=== PATIENT | male | born 1945 | race Caucasian/White ===

== ENCOUNTER 2017-12-28 09:09 | Day surgery (SDC) | payer OTHER ==
[2017-12-23 13:18] VITALS: BMI 21.9
[2017-12-28] MEDS: CIPROFLOXACIN 0.3% EYE DROPS 5 ML BOTTLE ONE ×3 (10:00→10:10)
[2017-12-28] MEDS: CYCLOPENTOLATE 2% OPHTH SOLN 2 ML BOTTLE ONE ×3 (10:00→10:10)
[2017-12-28] MEDS: PHENYLEPHRINE 2.5% OPHTH SOLN 15 ML BOTTLE ONE ×3 (10:00→10:10)
[2017-12-28] MEDS: TROPICAMIDE 1% OPHTH SOLN 15 ML BOTTLE ONE ×3 (10:00→10:10)
[2017-12-28] MEDS ORDERED: MIDAZOLAM HCL 2 MG/2 ML SINGLE DOSE VIAL ONE (11:03)
[2017-12-28] MEDS ORDERED: TETRACAINE 0.5% OPHTH SOLN 2 ML BOTTLE ONE (11:09)
[2017-12-28] MEDS ORDERED: LIDOCAINE 1% P/F 10 MG/ML VIAL ONE (11:09)
[2017-12-28] MEDS ORDERED: CARBACHOL 0.01% INTRA-OCULAR 1.5 ML VIAL ONE (11:09)
[2017-12-28] MEDS ORDERED: BSS (NA/CA/MG/K) BALANCED SALT SOLUTION OPHTH SOLN 15 ML BOTTLE ONE (11:09)
[2017-12-28] MEDS ORDERED: LIDOCAINE HCL 1% PRESERVATIVE FREE - 30ML VIAL IO ONE ×2 (11:25→11:30)
[2017-12-28] MEDS ORDERED: DISP SYRIN IO ONE ×2 (11:26→11:30)
[2017-12-28] MEDS ORDERED: EPINEPHrine 1:1,000 1 MG/1 ML - 30ML VIAL (INJECTION) SQ ONE ×2 (11:26→11:30)
[2017-12-28] MEDS ORDERED: HYALURONATE SODIUM IO ONE ×2 (11:26→11:30)
[2017-12-28] MEDS ORDERED: CARBACHOL 0.01% INTRA-OCULAR 1.5 ML VIAL IO ONE ×2 (11:27→11:30)
[2017-12-28] MEDS ORDERED: NEO/POLYMYX B SULF/DEXAMETH OPHTHALMIC 5ML BOTTLE OD ONE ×2 (11:28→11:40)
[2017-12-28] MEDS ORDERED: BSS (NA/CA/MG/K) BALANCED SALT SOLUTION OPHTH SOLN 15 ML BOTTLE OD ONE (11:30)
[2017-12-28] MEDS ORDERED: CHONDROITIN SU A/HYALUR SOD 1 KIT IO ONE (11:34)
[2017-12-28 12:43] VITALS: TEMP 97.6
[2017-12-28] MEDS ORDERED: ONDANSETRON 4 MG/2 ML VIAL IVPUSH PRN (12:43)
[2017-12-28] MEDS ORDERED: ACETAMINOPHEN 325 MG TABLET (FP) PO PRN (12:43)
[2017-12-28] MEDS ORDERED: LACTATED RINGERS SOLUTION 1,000 ML IV SCH (12:45)
[2017-12-28 13:10] VITALS: BP 136/74; PULSE 82
== END 2017-12-28 12:15 | disposition home or self-care (01) ==
LOC: FASU 09:09
PROVIDERS: ATTEND Ophthalmology
PROC: 08RJ3JZ Replacement of Right Lens with Synthetic Substitute, Percutaneous Approach (ICD-10-PCS; principal; 2017-12-28 11:30)
DX: H26.8 Other specified cataract (principal)

== ENCOUNTER 2018-01-04 13:37 | Emergency (ER) | payer OTHER ==
[2018-01-04 13:50] VITALS: TEMP 98.2; BMI 21.6
--- NOTE | 2018-01-04 14:19 | PDOC ---
History of Present Illness - General History Source: Patient, Family Exam Limitations: No Limitations - History of Present Illness Initial Comments: 01/04/18 14:28 The patient is a 72 year old male, with a significant past medical history of COPD, hypertension, hyperlipidemia, GERD, who presents to the emergency department with approx. 2 weeks of diffuse upper back pain described as a sharp pain. The patient reports the diffuse upper back pain occasionally radiates down towards his sides. The patient reports taking Aleve for the pain with mild relief but states the diffuse upper back pain returns. The patient reports he has not seen his PCP Dr. Jean Baptiste for evaluation of the upper back pain due to unavailable appointments this week. The patient also reports an itch on the upper back. He reports using moisturizer and a prescribed cream from Dr. Jean Baptiste on the itch with minimal relief. He denies any recent chest pain or shortness of breath. He denies any recent fever, chills, headache or dizziness. He denies any recent nausea, vomiting, diarrhea or constipation. He denies any recent dysuria, frequency, urgency or hematuria. Allergies: NKA Social History: Former smoker. No current use of tobacco, alcohol or drugs. PCP: Dr. Jean Baptiste <Matheus Santoyo - Last Filed: 01/04/18 14:28> - History of Present Illness Initial Comments: 01/04/18 14:19 Physical exam: Alert oriented well-developed well-nourished no acute distress cooperative Afebrile, vital signs normal except for moderately elevated blood pressure PERRLA, fundi benign, ENT clear Neck supple without bruit mass or nodes Lungs clear with full breath sounds throughout bilaterally, no wheezes rales or rhonchi. No tachypnea or dyspnea CV S1 and S2 distant without murmur rub or gallop pulses full and symmetric no JVD or edema no bruits regular Abdomen soft nontender without mass or organomegaly. Bowel sounds normal. Nondistended Extremities no CCE Skin clear, no rash, adequate turgor and wet mucous membranes Neurological C2 to 12 intact. No focal sensory or motor deficits. Strength full and symmetric. Gait stable and unimpaired Musculoskeletal: There is no point tenderness or deformity over the back musculature or vertebral bodies. There is no rib cage or chest wall deformity or tenderness. The patient indicates intermittent pain over the right posterior scapula, the left posterior shoulder. No anterior pain. No mid back or low back pain. Impression: The history of physical exam indicates musculoskeletal pain, most probably with multiple trigger points, myofascial. Because of the patient's risk factor, rule out occult pulmonary or cardiac disease. Plan: EKG and enzymes, CBC and chemistries, urinalysis, chest x-ray, further evaluation and treatment depending on results. <Tyrone Lucio - Last Filed: 01/04/18 16:21> - General Chief Complaint: Back Pain Stated Complaint: BACK PAIN Time Seen by Provider: 01/04/18 13:54 Past History <Matheus Santoyo - Last Filed: 01/04/18 14:28> - Past Medical History Anemia: No Asthma: Yes Cancer: No Cardiac Disorders: No CVA: No COPD: Yes CHF: No Dementia: No Diabetes: No GI Disorders: Yes (GERD) Disorders: No HTN: Yes Hypercholesterolemia: Yes Liver Disease: No Psychiatric Problems: Yes (ANXIETY) Seizures: No Thyroid Disease: No - Surgical History Abdominal Surgery: No Appendectomy: No Cardiac Surgery: No Cholecystectomy: Yes Lung Surgery: No Neurologic Surgery: No Orthopedic Surgery: Yes (DEMETRICE SHOULDER ARTHROSCOPIES) - Immunization History Td Vaccination: Yes Immunization Up to Date: Yes - Suicide/Smoking/Psychosocial Hx Smoking Status: No Smoking History: Former smoker Have you smoked in the past 12 months: No Number of Cigarettes Smoked Daily: 0 If you are a former smoker, when did you quit?: 1990s Cigars Per Day: 0 Information on smoking cessation initiated: No Hx Alcohol Use: No Drug/Substance Use Hx: No Substance Use Type: None Hx Substance Use Treatment: No <Tyrone Lucio - Last Filed: 01/04/18 16:21> - Past Medical History Allergies/Adverse Reactions: Allergies Allergy/AdvReac Type Severity Reaction Status Date / Time No Known Drug Allergies Allergy Verified 12/28/17 09:38 Home Medications: Ambulatory Orders Atenolol [Tenormin -] 25 mg PO DAILY 09/23/13 Budesonide/Formeterol Fumarate [SYMBICORT 160/4.5mcg -] 2 inh PO BID 09/23/13 Bupropion HCl [Wellbutrin -] 75 mg PO TID 09/23/13 Chlorthalidone [Hygroton -] 25 mg PO DAILY 09/23/13 Cholecalciferol (Vitamin D3) [Vitamin D] 1,000 unit PO BID 09/23/13 Lorazepam 0.5 mg PO 5XD 09/23/13 Niacin [Niaspan] 1,000 mg PO HS 09/23/13 Omeprazole [Prilosec (RX)] 40 mg PO DAILY 09/23/13 Potassium Chloride [Klor-Con 8] 8 meq PO TID 09/23/13 Simvastatin [Zocor -] 20 mg PO HS 09/23/13 Valsartan [Diovan] 160 mg PO DAILY 09/23/13 Aspirin [Ecotrin] 81 mg PO DAILY 07/16/16 Cyclobenzaprine HCl [Flexeril -] 10 mg PO TID #15 tablet 01/04/18 Review of Systems - Review of Systems Comments:: 01/04/18 14:30 GENERAL/CONSTITUTIONAL: No fever or chills. No weakness. HEAD, EYES, EARS, NOSE AND THROAT: No change in vision. No ear pain or discharge. No sore throat. CARDIOVASCULAR: No chest pain or shortness of breath. RESPIRATORY: No cough, wheezing, or hemoptysis. GASTROINTESTINAL: No nausea, vomiting, diarrhea or constipation. GENITOURINARY: No dysuria, frequency, or change in urination. MUSCULOSKELETAL: +Diffuse upper back pain. No neck pain. SKIN: No rash NEUROLOGIC: No headache, vertigo, loss of consciousness, or change in strength/ sensation. ENDOCRINE: No increased thirst. No abnormal weight change. HEMATOLOGIC/LYMPHATIC: No anemia, easy bleeding, or history of blood clots. ALLERGIC/IMMUNOLOGIC: No hives or skin allergy. <Matheus Santoyo - Last Filed: 01/04/18 14:28> *Physical Exam - Vital Signs Last Vital Signs Temp Pulse Resp BP Pulse Ox 98.2 F 74 16 179/87 97 01/04/18 13:39 01/04/18 13:39 01/04/18 13:39 01/04/18 13:39 01/04/18 13:39 <Matheus Santoyo - Last Filed: 01/04/18 14:28> - Vital Signs Last Vital Signs Temp Pulse Resp BP Pulse Ox 98.2 F 74 16 179/87 97 01/04/18 13:39 01/04/18 13:39 01/04/18 13:39 01/04/18 13:39 01/04/18 13:39 <Tyrone Lucio - Last Filed: 01/04/18 16:21> ED Treatment Course - LABORATORY CBC & Chemistry Diagram: 01/04/18 14:25 01/04/18 14:25 <Tyrone Lucio - Last Filed: 01/04/18 16:21> Medical Decision Making - Medical Decision Making 01/04/18 14:45 EKG: Sinus rhythm 69/m with occasional PACs. Left axis deviation. No significant ST-T wave changes. No ST elevation. No old EKG available in our files. 01/04/18 14:57 Chest x-ray: Chronic interstitial disease, no acute infiltrates, effusions. 01/04/18 15:07 Old EKG was reviewed with primary physician Dr. Jean Baptiste. Except for the PAC, appears to be unchanged. Stress test was also reviewed from 2008. <Tyrone Lucio - Last Filed: 01/04/18 16:21> *DC/Admit/Observation/Transfer - Attestations Scribe Attestion: 01/04/18 14:30 Documentation prepared by Matheus Santoyo, acting as medical technologist clinical for Tyrone Lucio MD. <Matheus Santoyo - Last Filed: 01/04/18 14:28> - Discharge Dispostion Admit: No <Tyrone Lucio - Last Filed: 01/04/18 16:21> Diagnosis at time of Disposition: Upper back pain - Discharge Dispostion Disposition: HOME Condition at time of disposition: Stable - Prescriptions Prescriptions: Cyclobenzaprine HCl [Flexeril -] 10 mg PO TID #15 tablet - Referrals Referrals: Matheus Jean Baptiste MD [Primary Care Provider] - 1 week - Patient Instructions Printed Discharge Instructions: DI for Thoracic Back Pain Additional Instructions: Blood pressure remains high. Be sure to take blood pressure medicine as scheduled and to see your doctor to carefully monitor response to medication. If it remains high, modification of the medicine may be necessary. Stress reduction activities, which may help to lower your blood pressure and also relieved or muscle pain, I recommended. Relaxation techniques, such as deep breathing, or light exercise, such as walking for a short period of time daily may help. - Post Discharge Activity
[2018-01-04 15:07] LABS: BASO % 0.7 % (0-2.0); EOS % 5.4 % (0-4.5); HEMATOCRIT 38.2 % (35.4-49); HEMOGLOBIN 12.5 GM/dl (11.7-16.9); LYMPH % 20.8 % (8-40); MCH 29.5 pg (25.7-33.7); MCHC 32.9 g/dl (32.0-35.9); MEAN CELL VOLUME 89.7 fl (80-96); MEAN PLT VOLUME 8.4 fl (7.5-11.1); MONO % 10.4 % (3.8-10.2); NEUT % 62.7 % (42.8-82.8); PLATELET COUNT 214 K/MM3 (134-434); RBC 4.26 M/mm3 (4.00-5.60); RDW 12.6 % (11.9-15.9); WHITE BLOOD COUNT 6.9 K/mm3 (4.0-10.8)
[2018-01-04 15:18] LABS: PH,URINE 8.5 (4.5-8); URINE APPEARANCE Clear; URINE BILIRUBIN Negative (NEGATIVE); URINE BLOOD Negative (NEGATIVE); URINE GLUCOSE (UA) Negative (NEGATIVE); URINE KETONE Negative (NEGATIVE); URINE LEUK ESTERASE Negative (NEGATIVE); URINE NITRITE Negative (NEGATIVE); URINE PROTEIN Negative (NEGATIVE); URINE UROBILINOGEN 0.2 (0.2-1.0)
[2018-01-04 15:19] LABS: URINE COLOR YELLOW
[2018-01-04 16:07] LABS: ALBUMIN 3.8 g/dl (3.5-5.0); ALK PHOS 51 U/L (32-92); ANION GAP 7 (8-16); BILIRUBIN,TOTAL 0.7 mg/dl (0.2-1.0); BLOOD UREA NITROGEN 20 mg/dl (7-18); CHLORIDE 97 mmol/L (98-107); CO2 26 mmol/L (22-28); GLUCOSE,RANDOM 94 mg/dl (74-106); POTASSIUM 4.4 mmol/L (3.5-5.1); SGOT/AST 38 U/L (10-42); SGPT/ALT 28 U/L (10-40); SODIUM 130 mmol/L (136-145); TOT PROT 6.8 g/dl (6.4-8.3)
[2018-01-04 16:12] VITALS: BP 183/89; PULSE 66
--- NOTE | 2018-01-05 10:53 | EKG ---
Test Reason : Blood Pressure : / mmHG Vent. Rate : 069 BPM Atrial Rate : 069 BPM P-R Int : 152 ms QRS Dur : 090 ms QT Int : 424 ms P-R-T Axes : 031 -35 008 degrees QTc Int : 454 ms SINUS RHYTHM WITH PREMATURE ATRIAL COMPLEXES LEFT AXIS DEVIATION NONSPECIFIC ST ABNORMALITY ABNORMAL ECG NO PREVIOUS ECGS AVAILABLE Confirmed by TOMASZ ROSA MD ([id number]) on 01/05/2018 10:53:16 AM Referred By: CHICO SALAMANCA Confirmed By:TOMASZ ROSA MD
== END 2018-01-04 16:24 | disposition home or self-care (01) ==
LOC: FER 13:37
DX: M54.9 Dorsalgia, unspecified (principal); J44.9 Chronic obstructive pulmonary disease, unspecified; I10 Essential (primary) hypertension; E78.5 Hyperlipidemia, unspecified; K21.9 Gastro-esophageal reflux disease without esophagitis; F41.9 Anxiety disorder, unspecified
CPT/HCPCS: 36415; 71046-TC-FY; 80053; 81003; 82550; 84484; 85025; 93005; 99283-25

== ENCOUNTER 2018-02-01 08:37 | Inpatient (IN) | payer OTHER ==
[2018-02-01] MEDS: CIPROFLOXACIN 0.3% EYE DROPS 5 ML BOTTLE ONE ×3 (09:20→09:30)
[2018-02-01] MEDS: CYCLOPENTOLATE 2% OPHTH SOLN 2 ML BOTTLE ONE ×3 (09:20→09:30)
[2018-02-01] MEDS: PHENYLEPHRINE 2.5% OPHTH SOLN 15 ML BOTTLE ONE ×3 (09:20→09:30)
[2018-02-01] MEDS: TROPICAMIDE 1% OPHTH SOLN 15 ML BOTTLE ONE ×3 (09:20→09:30)
[2018-02-01] MEDS ORDERED: FAMOTIDINE 20 MG PREMIXED IVPB IVPB ONE (09:35)
[2018-02-01] MEDS ORDERED: FAMOTIDINE 20 MG/50 ML IVPB 20 MG/50 ML MG IVPB ONE (10:00)
[2018-02-01] MEDS ORDERED: MIDAZOLAM HCL 2 MG/2 ML SINGLE DOSE VIAL ONE ×2 (10:32→10:45)
--- NOTE | 2018-02-01 11:52 | PN ---
Progress Note (short form) - Note Progress Note: ANESTHESIOLOGY 72M was undergoing cataract extraction and lens implants. C/o GERD this am and received famotidine preop. In OR pt with irregular rhythm with rate ~90's -100' s. Hemodynamically stable. Procedure completed without issue. Pt transferred to PACU, EKG shows A-fib which is new onset. Cardiology called, awaiting consult. Cardiac enzymes, BMP and CBC drawn in PACU pending. Pt stable, and asymptomatic. HR:108 RR: 17 BP: 138/787 SaO2: 100% 2L NC Temp: 98.2 F Gen:awake, alert, NAD Heart: Irregular, no murmurs appreciated Lungs: CTA B/L Pt with new onset atrial fibrillation. Pt transferred to PACU. Cardiology called , awaiting consult. Cardiac enzymes, BMP and CBC drawn in PACU pending. Pt stable, and asymptomatic. LAbs Pending Awaiting Cardiology Continue monitor in PACU
[2018-02-01] MEDS: METOPROLOL TARTRATE 5 MG/5 ML VIAL IVPUSH ONE ×2 (12:01→15:13)
--- NOTE | 2018-02-01 13:10 | OP ---
DATE OF PROCEDURE: 02/01/2018 OPERATIVE PROCEDURE: Lens Phacoemulsification with Posterior Chamber Intraocular Lens Placement Left Eye PREOPERATIVE DIAGNOSIS: Visually Significant Cataract of Left Eye POSTOPERATIVE DIAGNOSIS: Visually Significant Cataract of Left Eye SURGEON: Silas Dwyer M.D. ANESTHESIA: MAC ANESTHESIOLOGIST: PROCEDURE: The patient was brought to the operating room and placed under monitored anesthesia care by Anesthesia. A drop of Tetracaine was then placed over the left eye. The patient was then prepped and draped in the usual sterile manner. A speculum was then placed over the left eye. The eye was then well irrigated with copious amounts of BSS (balanced salt solution). The operating microscope was then moved into position. A paracentesis was performed using a 15 degree blade. At this point 0.5 mL of 1% preservative-free lidocaine was injected into the anterior chamber. Amvisc plus was then injected into the anterior chamber. A clear corneal incision was then formed using a 2.2 mm keratome. A capsulorrhexis was then performed in a continuous circular fashion beginning with a cystotome, completed with an Utrata forceps. Hydrodissection was then performed using BSS on a cannula. The phaco probe was then introduced through the corneal wound and the cataract was removed using the phaco chop technique. Approximately 3 seconds of absolute phaco time was used. The remaining cortex was then removed using irrigation and aspiration with an I/A probe. The capsule was then filled with regular Amvisc and the capsule was noted to be intact. A previously selected foldable posterior chamber intraocular lens was then injected into the capsule through the corneal wound using a lens injector. It was then dialed into position using a Sinskey hook. The Amvisc was then removed using irrigation and aspiration. Miostat was then injected through the paracentesis to constrict the pupil. The paracentesis and corneal wound were then hydrated and noted to be water tight. A drop of Maxitrol was then placed over the eye. The speculum was removed and clear shield was taped over the eye. The patient tolerated the procedure well and there were no surgical complications. The patient was asked to follow up in my office the next day. SILAS DWYER M.D. TULIO/[id number]
--- NOTE | 2018-02-01 13:19 | HP ---
CHIEF COMPLAINT: rapid heart rate PCP: Dr Jean Baptiste HISTORY OF PRESENT ILLNESS: Patient is a 72 y/o male with a past medical history of cataract anxiety,depression, hypertension, copd, and GERD. Patient underwent an elective left cataract removal today with Dr Ramírez. Patient was noted to be in a rapid afib after the procedure. He was given 5mg of IV lopressor x 1. Patient reports ongoing non-radiating left sided chest pain. Patient denies any past medical history of afib. Recent Travel: none PAST MEDICAL HISTORY: see hpi PAST SURGICAL HISTORY: left cataract removal Social History: resides at home with Smoking:none Alcohol:none Drugs: none Family History: non-contributory to this admission Allergies No Known Drug Allergies Allergy (Verified 02/01/18 09:39) HOME MEDICATIONS: Home Medications Medication Instructions Recorded Atenolol [Tenormin -] 25 mg PO DAILY 09/23/13 Budesonide/Formeterol Fumarate 2 inh PO BID 09/23/13 [SYMBICORT 160/4.5mcg -] Bupropion HCl [Wellbutrin -] 75 mg PO TID 09/23/13 Chlorthalidone [Hygroton -] 25 mg PO DAILY 09/23/13 Cholecalciferol (Vitamin D3) 1,000 unit PO BID 09/23/13 [Vitamin D] Lorazepam 0.5 mg PO 5XD 09/23/13 Niacin [Niaspan] 1,000 mg PO HS 09/23/13 Omeprazole [Prilosec (RX)] 40 mg PO DAILY 09/23/13 Potassium Chloride [Klor-Con 8] 8 meq PO TID 09/23/13 Simvastatin [Zocor -] 20 mg PO HS 09/23/13 Valsartan [Diovan] 160 mg PO DAILY 09/23/13 Aspirin [Ecotrin] 81 mg PO DAILY 07/16/16 REVIEW OF SYSTEMS CONSTITUTIONAL: Absent: fever, chills, diaphoresis, generalized weakness, malaise, loss of appetite, weight change HEENT: Absent: rhinorrhea, nasal congestion, throat pain, throat swelling, difficulty swallowing, mouth swelling, ear pain, eye pain, visual changes CARDIOVASCULAR: Present: chest pain Absent: syncope, palpitations, irregular heart rate, lightheadedness, peripheral edema RESPIRATORY: Absent: cough, shortness of breath, dyspnea with exertion, orthopnea, wheezing, stridor, hemoptysis GASTROINTESTINAL: Absent: abdominal pain, abdominal distension, nausea, vomiting, diarrhea, constipation, melena, hematochezia GENITOURINARY: Absent: dysuria, frequency, urgency, hesitancy, hematuria, flank pain, genital pain MUSCULOSKELETAL: Absent: myalgia, arthralgia, joint swelling, back pain, neck pain SKIN: Absent: rash, itching, pallor HEMATOLOGIC/IMMUNOLOGIC: Absent: easy bleeding, easy bruising, lymphadenopathy, frequent infections ENDOCRINE: Absent: unexplained weight gain, unexplained weight loss, heat intolerance, cold intolerance NEUROLOGIC: Absent: headache, focal weakness or paresthesias, dizziness, unsteady gait, seizure, mental status changes, bladder or bowel incontinence PSYCHIATRIC: Absent: anxiety, depression, suicidal or homicidal ideation, hallucinations. PHYSICAL EXAMINATION Vital Signs - 24 hr 02/01/18 02/01/18 02/01/18 09:21 09:38 10:58 Temperature 97.8 F 98.2 F Pulse Rate 66 97 H Respiratory 18 18 Rate Blood Pressure 117/89 139/77 O2 Sat by Pulse 95 95 96 Oximetry (%) 02/01/18 02/01/18 02/01/18 11:03 11:08 11:13 Temperature Pulse Rate 98 H 99 H 118 H Respiratory 17 18 17 Rate Blood Pressure 144/78 134/84 137/87 O2 Sat by Pulse 99 99 99 Oximetry (%) 02/01/18 02/01/18 02/01/18 11:30 11:45 12:00 Temperature Pulse Rate 113 H 108 H 102 H Respiratory 17 16 14 Rate Blood Pressure 137/87 136/90 136/74 O2 Sat by Pulse 99 100 99 Oximetry (%) 02/01/18 12:30 Temperature Pulse Rate 97 H Respiratory 14 Rate Blood Pressure 126/84 O2 Sat by Pulse 99 Oximetry (%) GENERAL: Awake, alert, and fully oriented, anxious. HEAD: Normal with no signs of trauma. EYES: Pupils equal, round and reactive to light, extraocular movements intact, sclera anicteric, conjunctiva clear. No lid lag. EARS, NOSE, THROAT: Ears normal, nares patent, oropharynx clear without exudates. Moist mucous membranes. NECK: Normal range of motion, supple without lymphadenopathy, JVD, or masses. LUNGS: Breath sounds equal, clear to auscultation bilaterally. No wheezes, and no crackles. No accessory muscle use. HEART: irregular rate and rhythm, normal S1 and S2 without murmur, rub or gallop. ABDOMEN: Soft, nontender, not distended, normoactive bowel sounds, no guarding, no rebound, no masses. No hepatomegaly or splenomegaly. MUSCULOSKELETAL: Normal range of motion at all joints. No bony deformities or tenderness. No CVA tenderness. UPPER EXTREMITIES: 2+ pulses, warm, well-perfused. No cyanosis. No clubbing. No peripheral edema. LOWER EXTREMITIES: 2+ pulses, warm, well-perfused. No calf tenderness. No peripheral edema. NEUROLOGICAL: Cranial nerves II-XII intact. Normal speech. Normal gait. PSYCHIATRIC: Cooperative. Good eye contact. Appropriate mood and affect. SKIN: Warm, dry, normal turgor, no rashes or lesions noted, normal capillary refill. Laboratory Results - last 24 hr 02/01/18 11:45 Troponin I < 0.03 ASSESSMENT/PLAN: f/e/n - low sodium diet - replete lytes prn ppx - ppi Problem List - Problem (1) Atrial fibrillation Assessment/Plan: - new onset afib w/rvr, rate noted to be 110-120's, continuous cardiac monitoring, troponin x 1 wnl, pending 2nd and third - lopressor 5mg iv x 1 given in pacu, start toprol 25mg - david vasc score of 2, pending bmp to assess renal function, will defer to cardiology in regards to noac - pending echo, tsh, t4 - appreciate cardiology input, Dr Breen Code(s): I48.91 - UNSPECIFIED ATRIAL FIBRILLATION (2) Hypertension Assessment/Plan: -continue diovan and chlorithadone, b/p q4h strict monitoring Code(s): I10 - ESSENTIAL (PRIMARY) HYPERTENSION Qualifiers: Hypertension type: essential hypertension Qualified Code(s): I10 - Essential (primary) hypertension (3) Depression Assessment/Plan: - continue wellbutrin home dose Code(s): F32.9 - MAJOR DEPRESSIVE DISORDER, SINGLE EPISODE, UNSPECIFIED (4) GERD (gastroesophageal reflux disease) Assessment/Plan: - continue prilosec Code(s): K21.9 - GASTRO-ESOPHAGEAL REFLUX DISEASE WITHOUT ESOPHAGITIS Qualifiers: Esophagitis presence: without esophagitis Qualified Code(s): K21.9 - Gastro -esophageal reflux disease without esophagitis (5) Hyperlipidemia Assessment/Plan: - pending lipid profile, continue statin and niacin Code(s): E78.5 - HYPERLIPIDEMIA, UNSPECIFIED (6) COPD (chronic obstructive pulmonary disease) Assessment/Plan: - continue symbicort, no acute excerbation at this time, start albuterol prn - keep spo2 above 92% Code(s): J44.9 - CHRONIC OBSTRUCTIVE PULMONARY DISEASE, UNSPECIFIED (7) Anxiety Assessment/Plan: - continue home dose lorazapam Code(s): F41.9 - ANXIETY DISORDER, UNSPECIFIED Visit type - Emergency Visit Emergency Visit: No - New Patient This patient is new to me today: Yes Date on this admission: 02/02/18 - Critical Care Critical Care patient: Yes Total Critical Care Time (in minutes): 45 Critical Care Statement: The care of this patient involved high complexity decision making to prevent further life threatening deterioration of the patient 's condition and/or to evaluate & treat vital organ system(s) failure or risk of failure. Hospitalist Screening - Colonoscopy Questionnaire Colonoscopy Questionnaire: Colonoscopy Questionnaire - Patient: 50 - 75 years old and never had a screening colonoscopy: No History of colon or rectal polyps, or CA: No History of IBD, Crohn's disease or UC: No History of abdominal radiation therapy as a child: No - Relative: 1 with colon or rectal CA, or polyps at age 60 or younger: No Colon or rectal CA diagnosed at age 45 or younger: No Multiple relatives with colon or rectal CA: No - Outcome: Screening Result: Negative Screen
[2018-02-01] MEDS ORDERED: LORazepam 0.5 MG TABLET ONE (13:39)
[2018-02-01] MEDS: LORazepam 0.5 MG TABLET PO PRN ×2 (13:39→22:03)
[2018-02-01] MEDS: metoPROLOL SUCCINATE 25 MG TAB.SR.24H (FP) PO ONE ×2 (13:50→15:13)
[2018-02-01] MEDS ORDERED: POTASSIUM CHLORIDE 8 MEQ PO SCH (14:00)
[2018-02-01] MEDS ORDERED: buPROPion HCL 75 MG TABLET PO SCH (14:00)
--- NOTE | 2018-02-01 15:12 | CON.CARD ---
Cardiology Consult (text) - Consultation Consultation Note: CC: new onset afib 72 yo with h/o htn, hl, anxiety,depression, copd, and GERD who is s/p cataract surgery today, post-op course complicated by new onset atrial fibrillation. Patient underwent an elective left cataract removal today with Dr Ramírez. Patient was noted to be in a rapid afib after the procedure. He was given 5mg of IV lopressor x 1 and lopressor 25 mg po x 1--> HR's trended down to 90's. Patient remained asx throughout. Denies palps, dizziness, cp, sob, orthopnea, pnd, le edema. Endorses 3 months of dyspnea when bending over, abdominal distension and decreased appetite. Functional status: sedentary, walks up flight of stairs to his home regularly without cardiac sx's. Walks up stairs slowly however due to poor balance (no h/ o falls). Otherwise sedentary. + pain in legs after walking 3-4 blocks. He denies any recent fever, chills, sweats, n/v/d, headache, rashes, visual disturbances, cough, congestion. + h/o heartburn, chronic. pmhx/pshx: per phi, cholecystectomy, shoulder surgery Social History: Former smoker. Drinks 2-3 glasses of wine daily with dinner. fam hx: no cardiac disease. ros: per hpi Ambulatory Orders Atenolol [Tenormin -] 25 mg PO DAILY 09/23/13 Budesonide/Formeterol Fumarate [SYMBICORT 160/4.5mcg -] 2 inh PO BID 09/23/13 Bupropion HCl [Wellbutrin -] 75 mg PO TID 09/23/13 Chlorthalidone [Hygroton -] 25 mg PO DAILY 09/23/13 Cholecalciferol (Vitamin D3) [Vitamin D] 1,000 unit PO BID 09/23/13 Lorazepam 0.5 mg PO 5XD 09/23/13 Niacin [Niaspan] 1,000 mg PO HS 09/23/13 Omeprazole [Prilosec (RX)] 40 mg PO DAILY 09/23/13 Potassium Chloride [Klor-Con 8] 8 meq PO TID 09/23/13 Simvastatin [Zocor -] 20 mg PO HS 09/23/13 Valsartan [Diovan] 160 mg PO DAILY 09/23/13 Aspirin [Ecotrin] 81 mg PO DAILY 07/16/16 Current Medications Budesonide/Formoterol Fumarate (Symbicort 160/4.5mcg -) 2 puff IH BID [facility] Bupropion HCl (Wellbutrin -) 150 mg PO TID [facility] Chlorthalidone (Hygroton -) 25 mg PO DAILY [facility] Lorazepam (Ativan -) 0.5 mg PO 5XD PRN PRN Reason: ANXIETY Last Admin: 02/01/18 13:39 Dose: 0.5 mg Non-Formulary Medication (Cholecalciferol (Vitamin D3) [Vitamin D]) 1,000 unit PO BID [facility] Non-Formulary Medication (Niacin [Niaspan]) 1,000 mg PO HS [facility] Non-Formulary Medication (Omeprazole Pediatric Solution) 40 mg PO DAILY [facility] Non-Formulary Medication (Potassium Chloride [Klor-Con 8]) 8 meq PO TID [facility] Non-Formulary Medication (Simvastatin) 20 mg PO HS [facility] Valsartan (Diovan -) 160 mg PO DAILY [facility] Vital Signs - 24 hr 02/01/18 02/01/18 02/01/18 09:21 09:38 10:58 Temperature 97.8 F 98.2 F Pulse Rate 66 97 H Respiratory 18 18 Rate Blood Pressure 117/89 139/77 O2 Sat by Pulse 95 95 96 Oximetry (%) 02/01/18 02/01/18 02/01/18 11:03 11:08 11:13 Temperature Pulse Rate 98 H 99 H 118 H Respiratory 17 18 17 Rate Blood Pressure 144/78 134/84 137/87 O2 Sat by Pulse 99 99 99 Oximetry (%) 02/01/18 02/01/18 02/01/18 11:30 11:45 12:00 Temperature Pulse Rate 113 H 108 H 102 H Respiratory 17 16 14 Rate Blood Pressure 137/87 136/90 136/74 O2 Sat by Pulse 99 100 99 Oximetry (%) 02/01/18 02/01/18 02/01/18 12:30 13:00 13:45 Temperature Pulse Rate 97 H 96 H 100 H Respiratory 14 15 16 Rate Blood Pressure 126/84 143/80 145/80 O2 Sat by Pulse 99 98 96 Oximetry (%) 02/01/18 14:00 Temperature 98.2 F Pulse Rate 100 H Respiratory 16 Rate Blood Pressure 145/80 O2 Sat by Pulse Oximetry (%) nad, calm jvd flat, neck supple + exp wheezes, nl effort irregularly irregular nl s1, s2 no mrg, nd pmi + bs soft nt nd, no hsm + dp/pt, no carotid bruits no le e/c/c aaox3 no jaundice, diaphoresis. LABS PENDING ekg: afib/flutter, vr 103 bpm. lad, poor baseline/possible anterior STD tele: rate controlled afib/flutter (90's) 72 yo with h/o htn, hl, anxiety,depression, copd, and GERD who is s/p cataract surgery today, post-op course complicated by new onset atrial fibrillation. new onset post-op afib - echo pending - will stop atenolol and start diltiazem 30 mg PO q 6h for rate control. - discussed risk/benefit of AC with patient and family and he is amenable to AC. Will start eliquis 5 mg po bid. - possible STD on ekg, will con't sharita. - patient with possible sx's of volume overload, will check cxr and bnp. - daily weights, i/o's. con't chlorthalidone for now. - may benefit from pulmonary evaluation and sleep study as outpatient to optimize risk factors. - tsh pending, lyte repletion prn. - tele monitoring htn - med adjustments as mentioned. hl - con't statin s/p cataract surgery - post-op care per surgery/pmd.
[2018-02-01] MEDS: buPROPion HCL 75 MG TABLET PO SCH ×2 (15:20→21:37)
[2018-02-01] MEDS ORDERED: ASPIRIN COATED 81 MG TABLET.EC PO SCH (15:30)
[2018-02-01] MEDS: dilTIAZem HCL 30 MG TABLET (FP) PO SCH ×3 (16:16→23:08)
[2018-02-01] MEDS: NEPAFENAC OS SCH (17:00)
[2018-02-01] MEDS ORDERED: PT OWN MED DRAWER 7, Y5N ONE (17:36)
[2018-02-01] MEDS: prednisoLONE ACETATE 1% OPHTH SUSP 5 ML BOTTLE OS PRN (18:23)
[2018-02-01 20:11] LABS: ALBUMIN 3.6 g/dl (3.4-5.0); ALK PHOS 62 U/L (45-117); ANION GAP 14 (8-16); BILIRUBIN,TOTAL 0.3 mg/dL (0.2-1.0); BLOOD UREA NITROGEN 14 mg/dL (7-18); CALCIUM 8.6 mg/dL (8.5-10.1); CHLORIDE 93 mmol/L (98-107); CO2 23 mmol/L (21-32); CREATININE 1.3 mg/dL (0.7-1.3); GLUCOSE,RANDOM 98 mg/dL (74-106); POTASSIUM 3.7 mmol/L (3.5-5.1); SGOT/AST 19 U/L (15-37); SGPT/ALT 19 U/L (12-78); SODIUM 130 mmol/L (136-145); TOT PROT 7.3 g/dl (6.4-8.2)
[2018-02-01 20:38] LABS: HEMATOCRIT 36.3 % (35.4-49); HEMOGLOBIN 12.3 GM/dL (11.7-16.9); MCH 30.4 pg (25.7-33.7); MCHC 33.9 g/dl (32.0-35.9); MEAN CELL VOLUME 89.8 fl (80-96); MEAN PLT VOLUME 8.6 fl (7.5-11.1); PLATELET COUNT 196 K/MM3 (134-434); RBC 4.05 M/mm3 (4.00-5.60); WHITE BLOOD COUNT 5.7 K/mm3 (4.0-10.0)
[2018-02-01] MEDS: CHOLECALCIFEROL (VITAMIN D3) 1,000 UNIT TABLET (FP) PO SCH (21:36)
[2018-02-01] MEDS: BUDESONIDE/FORMETEROL FUMARATE 160/4.5 mcg INHALER IH SCH (21:36)
[2018-02-01] MEDS: APIXABAN 5 MG TABLET PO SCH (21:37)
[2018-02-01] MEDS: ATORVASTATIN CA 10 MG TABLET (FP) PO SCH (21:37)
[2018-02-01] MEDS: NIACIN 500 MG TABLET PO SCH (21:38)
[2018-02-01] MEDS: GATIFLOXACIN OS SCH (21:39)
[2018-02-01] MEDS ORDERED: LORazepam 0.5 MG TABLET PO ONE (22:06)
--- NOTE | 2018-02-01 22:09 | HOSP ---
Physical Examination Vital Signs: Vital Signs Temperature 98.4 F 02/01/18 18:00 Pulse Rate 98 H 02/01/18 18:00 Respiratory Rate 20 02/01/18 18:00 Blood Pressure 132/77 02/01/18 18:00 O2 Sat by Pulse Oximetry (%) 96 02/01/18 13:45 Labs: CBC, BMP 02/01/18 19:45 02/01/18 19:20 Hospitalist Encounter Assessment: nurse called to report pt states he takes ativan 1mg at bedtime. home meds entered as 0.5mg FIVE times daily PRN. Asked nurse to clarify with pt. order changed to ativan 1mg HS.
[2018-02-01 23:17] LABS: ALBUMIN 3.5 g/dl (3.5-5.0); ALK PHOS 48 U/L (32-92); ANION GAP 8 (8-16); BILIRUBIN,TOTAL 0.7 mg/dl (0.2-1.0); BLOOD UREA NITROGEN 13 mg/dl (7-18); CALCIUM 8.9 mg/dl (8.4-10.2); CHLORIDE 92 mmol/L (98-107); CO2 24 mmol/L (22-28); CREATININE 0.9 mg/dl (0.6-1.3); GLUCOSE,RANDOM 105 mg/dl (74-106); HEMATOCRIT 38.5 % (35.4-49); HEMOGLOBIN 12.8 GM/dl (11.7-16.9); MCHC 33.4 g/dl (32.0-35.9); MEAN CELL VOLUME 89.9 fl (80-96); MEAN PLT VOLUME 8.5 fl (7.5-11.1); PLATELET COUNT 199 K/MM3 (134-434); POTASSIUM 3.4 mmol/L (3.5-5.1); RBC 4.28 M/mm3 (4.00-5.60); RDW 12.6 % (11.9-15.9); SGOT/AST 25 U/L (10-42); SGPT/ALT 18 U/L (10-40); TOT PROT 6.5 g/dl (6.4-8.3); WHITE BLOOD COUNT 4.4 K/mm3 (4.0-10.8)
[2018-02-01 23:21] LABS: SODIUM 124 mmol/L (136-145)
[2018-02-02] MEDS: dilTIAZem HCL 30 MG TABLET (FP) PO SCH ×4 (05:49→23:53)
[2018-02-02] MEDS: buPROPion HCL 75 MG TABLET PO SCH ×3 (05:50→22:20)
[2018-02-02] MEDS: GATIFLOXACIN OS SCH ×3 (05:51→22:19)
[2018-02-02 07:03] LABS: BASO % 0.6 % (0-2.0); EOS % 0.5 % (0-4.5); HEMATOCRIT 35.5 % (35.4-49); HEMOGLOBIN 11.9 GM/dL (11.7-16.9); LYMPH % 18.4 % (8-40); MCH 30.5 pg (25.7-33.7); MCHC 33.6 g/dl (32.0-35.9); MEAN CELL VOLUME 90.8 fl (80-96); MEAN PLT VOLUME 9.3 fl (7.5-11.1); MONO % 15.1 % (3.8-10.2); NEUT % 65.4 % (42.8-82.8); PLATELET COUNT 168 K/MM3 (134-434); RBC 3.91 M/mm3 (4.00-5.60); WHITE BLOOD COUNT 5.6 K/mm3 (4.0-10.0)
[2018-02-02 08:04] LABS: ALBUMIN 3.3 g/dl (3.4-5.0); ANION GAP 16 (8-16); BLOOD UREA NITROGEN 18 mg/dL (7-18); CALCIUM 7.9 mg/dL (8.5-10.1); CHLORIDE 93 mmol/L (98-107); CO2 20 mmol/L (21-32); CREATININE 1.3 mg/dL (0.7-1.3); GLUCOSE,RANDOM 71 mg/dL (74-106); MAGNESIUM 1.4 mg/dL (1.8-2.4); POTASSIUM 3.2 mmol/L (3.5-5.1); SGOT/AST 14 U/L (15-37); SGPT/ALT 14 U/L (12-78); SODIUM 129 mmol/L (136-145)
[2018-02-02 08:08] LABS: ALK PHOS 56 U/L (45-117); BILIRUBIN,TOTAL 0.3 mg/dL (0.2-1.0); N-TERMINAL BNP 3191.47 pg/ml (5-125); TOT PROT 6.6 g/dl (6.4-8.2)
[2018-02-02] MEDS ORDERED: MAGNESIUM SULF 50% (8.12 MEQ/2 ML-1 GM VIAL) IVPB ONE (08:45)
[2018-02-02] MEDS ORDERED: PT OWN MED DRAWER 7, Y5N ONE ×4 (09:07→22:13)
[2018-02-02] MEDS ORDERED: POTASSIUM CHLORIDE TABS 20 MEQ TABLET.ER (FP) PO ONE (09:15)
[2018-02-02] MEDS ORDERED: MAGNESIUM SULFATE IN WATER 2 GM/50 ML IVPB IVPB ONE (09:30)
[2018-02-02] MEDS: PANTOPRAZOLE 40 MG TABLET (FP) PO SCH (09:38)
[2018-02-02] MEDS: APIXABAN 5 MG TABLET PO SCH ×2 (09:38→22:20)
[2018-02-02] MEDS: CHOLECALCIFEROL (VITAMIN D3) 1,000 UNIT TABLET (FP) PO SCH ×2 (09:38→22:20)
[2018-02-02] MEDS: CHLORTHALIDONE 25 MG TABLET PO SCH (09:38)
[2018-02-02] MEDS: BUDESONIDE/FORMETEROL FUMARATE 160/4.5 mcg INHALER IH SCH ×2 (09:39→22:18)
[2018-02-02] MEDS: NEPAFENAC OS SCH (09:40)
[2018-02-02] MEDS ORDERED: ATENOLOL 25 MG TABLET (FP) PO SCH (10:00)
[2018-02-02] MEDS ORDERED: VALSARTAN 160 MG TABLET (UD) PO SCH (10:00)
--- NOTE | 2018-02-02 11:00 | PN ---
Physical Exam: SUBJECTIVE: Patient seen and examined. Never had chest pain, no shortness of breath. Understands that atrial fib needs to be monitored closely. Wants to go home. 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 HEAD: Normal with no signs of trauma. EYES: s/p left eye cataract surgery ENT: Ears normal, nares patent, oropharynx clear without exudates, moist mucous membranes. NECK: Trachea midline, full range of motion, supple. LUNGS: Breath sounds equal, clear to auscultation bilaterally, no wheezes, no crackles, no accessory muscle use. HEART: irregular heart rate 77 on ABDOMEN: Soft, nontender, nondistended, normoactive bowel sounds, no guarding, no rebound, no hepatosplenomegaly, no masses. EXTREMITIES: 2+ pulses, warm, well-perfused, no edema. NEUROLOGICAL: Cranial nerves II through XII grossly intact. Normal speech, gait steady. PSYCH: Normal mood, normal affect. SKIN: Warm, dry, normal turgor, no rashes or lesions noted Laboratory Results - last 24 hr 02/01/18 02/01/18 02/01/18 11:45 11:45 11:45 WBC 4.4 D RBC 4.28 Hgb 12.8 Hct 38.5 MCV 89.9 MCH 30.0 MCHC 33.4 RDW 12.6 Plt Count 199 MPV 8.5 Neutrophils % Lymphocytes % Monocytes % Eosinophils % Basophils % Sodium 124 L* Potassium 3.4 L D Chloride 92 L Carbon Dioxide 24 Anion Gap 8 BUN 13 D Creatinine 0.9 Creat Clearance w eGFR > 60 Random Glucose 105 Calcium 8.9 Magnesium Total Bilirubin 0.7 AST 25 D ALT 18 D Alkaline Phosphatase 48 Creatine Kinase 87 Troponin I < 0.03 B-Natriuretic Peptide Total Protein 6.5 Albumin 3.5 TSH 02/01/18 02/01/18 02/01/18 18:45 19:20 19:45 WBC 5.7 RBC 4.05 Hgb 12.3 Hct 36.3 MCV 89.8 MCH 30.4 MCHC 33.9 RDW 13.0 Plt Count 196 MPV 8.6 Neutrophils % Lymphocytes % Monocytes % Eosinophils % Basophils % Sodium 130 L Potassium 3.7 Chloride 93 L Carbon Dioxide 23 Anion Gap 14 BUN 14 Creatinine 1.3 Creat Clearance w eGFR 53.96 Random Glucose 98 Calcium 8.6 Magnesium Total Bilirubin 0.3 AST 19 ALT 19 Alkaline Phosphatase 62 Creatine Kinase 88 Troponin I < 0.02 B-Natriuretic Peptide Total Protein 7.3 Albumin 3.6 TSH 02/01/18 02/02/18 02/02/18 Unknown 05:35 05:35 WBC 5.6 RBC 3.91 L Hgb 11.9 Hct 35.5 MCV 90.8 MCH 30.5 MCHC 33.6 RDW 13.0 Plt Count 168 MPV 9.3 Neutrophils % 65.4 Lymphocytes % 18.4 Monocytes % 15.1 H Eosinophils % 0.5 Basophils % 0.6 Sodium 129 L Potassium 3.2 L Chloride 93 L Carbon Dioxide 20 L Anion Gap 16 BUN 18 D Creatinine 1.3 Creat Clearance w eGFR 53.96 Random Glucose 71 L D Calcium 7.9 L Magnesium 1.4 L Total Bilirubin 0.3 AST 14 L D ALT 14 D Alkaline Phosphatase 56 Creatine Kinase 76 Troponin I < 0.02 B-Natriuretic Peptide 3191.47 H Total Protein 6.6 Albumin 3.3 L TSH 0.91 Active Medications Generic Name Dose Route Start Last Admin Trade Name Freq PRN Reason Stop Dose Admin Apixaban 5 mg 02/01/18 22:00 02/02/18 09:38 Eliquis - PO 5 mg BID AVIVA Administration Atorvastatin Calcium 10 mg 02/01/18 22:00 02/01/18 21:37 Lipitor - PO 10 mg HS AVIVA Administration Budesonide/Formoterol Fumarate 2 puff 02/01/18 22:00 02/02/18 09:39 Symbicort 160/4.5mcg - IH 2 puff BID AVIVA Administration Bupropion HCl 150 mg 02/01/18 15:30 02/02/18 05:50 Wellbutrin - PO 150 mg TID AVIVA Administration Chlorthalidone 25 mg 02/02/18 10:00 02/02/18 09:38 Hygroton - PO 25 mg DAILY AVIVA Administration Cholecalciferol 1,000 unit 02/01/18 22:00 02/02/18 09:38 Vitamin D3 - PO 1,000 unit BID AVIVA Administration Diltiazem HCl 30 mg 02/01/18 15:15 02/02/18 05:49 Cardizem - PO 30 mg Q6HPO AVIVA Administration Lorazepam 1 mg 02/02/18 22:00 Ativan - PO HS AVIVA Niacin 1,000 mg 02/01/18 22:00 02/01/18 21:38 Niacin PO 1,000 mg HS AVIVA Administration Non-Formulary Medication 0 ml 02/01/18 22:00 02/02/18 05:51 Gatifloxacin [Gatifloxacin] OS 1 ml TID AVIVA Administration Non-Formulary Medication 0 ml 02/01/18 18:00 02/02/18 09:40 Nepafenac [Ilevro] OS 1 ml DAILY AVIVA Administration Pantoprazole Sodium 40 mg 02/02/18 10:00 02/02/18 09:38 Protonix - PO 40 mg DAILY [facility]IVA Administration Prednisolone Acetate 1 drop 02/01/18 17:20 02/01/18 18:23 Pred Forte 1% - OS 1 drop QID PRN Administration FOR ITCHING Valsartan 160 mg 02/02/18 10:00 02/02/18 09:38 Diovan - PO 160 mg DAILY AVIVA Administration ASSESSMENT/PLAN: Patient is a 72 y/o male with a past medical history of cataract anxiety, depression, hypertension, copd, and GERD. Patient underwent an elective left cataract removal and was noted to in rapid afib after the procedure. He was given 5mg of IV lopressor for rate control. He then reported left sided chest pain. No prior history of atrial fibrillation. Cardiology Atrial fibrillation, new onset Monitor on tele Cardizem 120mg daily for rate control to start on 02/03/18 on Eliquis 5mg BID Echo reviewed trop negative x 3 Electrolyte Imbalance Sodium 124 on admission, now 130 Acute on chronic would defer to renal as pt also now as creat of 2.0 F.E.N. Fluids: PO Electrolytes: repleted mag and K, remains with low NA Nutrition: low sodium Prophy: eliquis Visit type - Emergency Visit Emergency Visit: Yes ED Registration Date: 02/01/18 Care time: The patient presented to the Emergency Department on the above date and was hospitalized for further evaluation of their emergent condition. - New Patient This patient is new to me today: Yes Date on this admission: 02/02/18 - Critical Care Critical Care patient: No - Discharge Referral Referred to [facility] Med P.C.: No
--- NOTE | 2018-02-02 13:01 | PN ---
Progress Note (short form) - Note Progress Note: s: no cp sob palps dizzy o: Vital Signs Period Temp Pulse Resp BP Sys/Aguilar Pulse Ox Last 24 Hr 98.0 F-98.6 F 74-100 15-20 98-145/59-85 95-98 nad no jvd irregularly irregular nl s1, s2 no mrg, cta bl nl ef + bs soft nt nd, no hsm no le e/c/c aaox3 no jaundice, diaphoresis. Current Medications Generic Name Dose Route Start Last Admin Trade Name Nara PRN Reason Stop Dose Admin Apixaban 5 mg 02/01/18 22:00 02/02/18 09:38 Eliquis - PO 5 mg BID AVIVA Administration Atorvastatin Calcium 10 mg 02/01/18 22:00 02/01/18 21:37 Lipitor - PO 10 mg HS AVIVA Administration Budesonide/Formoterol Fumarate 2 puff 02/01/18 22:00 02/02/18 09:39 Symbicort 160/4.5mcg - IH 2 puff BID AVIVA Administration Bupropion HCl 150 mg 02/01/18 15:30 02/02/18 05:50 Wellbutrin - PO 150 mg TID AVIVA Administration Chlorthalidone 25 mg 02/02/18 10:00 02/02/18 09:38 Hygroton - PO 25 mg DAILY AVIVA Administration Cholecalciferol 1,000 unit 02/01/18 22:00 02/02/18 09:38 Vitamin D3 - PO 1,000 unit BID AVIVA Administration Diltiazem HCl 30 mg 02/01/18 15:15 02/02/18 11:22 Cardizem - PO 30 mg Q6HPO AVIVA Administration Lorazepam 1 mg 02/02/18 22:00 Ativan - PO HS AVIVA Niacin 1,000 mg 02/01/18 22:00 02/01/18 21:38 Niacin PO 1,000 mg HS AVIVA Administration Non-Formulary Medication 0 ml 02/01/18 22:00 02/02/18 05:51 Gatifloxacin [Gatifloxacin] OS 1 ml TID AVIVA Administration Non-Formulary Medication 0 ml 02/01/18 18:00 02/02/18 09:40 Nepafenac [Ilevro] OS 1 ml DAILY AVIVA Administration Pantoprazole Sodium 40 mg 02/02/18 10:00 02/02/18 09:38 Protonix - PO 40 mg DAILY AVIVA Administration Prednisolone Acetate 1 drop 02/01/18 17:20 02/01/18 18:23 Pred Forte 1% - OS 1 drop QID PRN Administration FOR ITCHING Valsartan 160 mg 02/02/18 10:00 02/02/18 09:38 Diovan - PO 160 mg DAILY AVIVA Administration CBC, BMP 02/02/18 05:35 02/02/18 05:35 ekg: afib/flutter, vr 103 bpm. lad, poor baseline/possible anterior STD tele: rate controlled afib/flutter echo 01/2018: nl lv/rv, no sig valve path, nl rvsp cxr: clear lungs a/p: 72 yo with h/o htn, hl, anxiety,depression, copd, and GERD who is s/p cataract surgery today, post-op course complicated by new onset atrial fibrillation. new onset post-op afib - echo wnl - rate controlled on dilt-->change to long acting 120 qd on dc - cont ac with eliquis htn - med adjustments as mentioned. hl - con't statin cardiac posadas stable for dc with outpt f/u 2 weeks
[2018-02-02] MEDS: prednisoLONE ACETATE 1% OPHTH SUSP 5 ML BOTTLE OS PRN (13:15)
[2018-02-02 14:27] VITALS: BMI 21.6
[2018-02-02 14:59] LABS: MAGNESIUM 2.1 mg/dL (1.8-2.4)
[2018-02-02 16:16] LABS: ALBUMIN 3.4 g/dl (3.4-5.0); ALK PHOS 56 U/L (45-117); ANION GAP 11 (8-16); BILIRUBIN,TOTAL 0.2 mg/dL (0.2-1.0); BLOOD UREA NITROGEN 23 mg/dL (7-18); CALCIUM 8.5 mg/dL (8.5-10.1); CHLORIDE 95 mmol/L (98-107); CO2 24 mmol/L (21-32); GLUCOSE,RANDOM 106 mg/dL (74-106); POTASSIUM 3.9 mmol/L (3.5-5.1); SGOT/AST 18 U/L (15-37); SGPT/ALT 16 U/L (12-78); SODIUM 130 mmol/L (136-145); TOT PROT 6.8 g/dl (6.4-8.2)
--- NOTE | 2018-02-02 16:42 | EKG ---
Test Reason : Blood Pressure : / mmHG Vent. Rate : 103 BPM Atrial Rate : 088 BPM P-R Int : 000 ms QRS Dur : 094 ms QT Int : 364 ms P-R-T Axes : 000 -33 -20 degrees QTc Int : 476 ms ATRIAL FIBRILLATION WITH RAPID VENTRICULAR RESPONSE LEFT AXIS DEVIATION ABNORMAL ECG WHEN COMPARED WITH ECG OF 04-JAN-2018 14:37, ATRIAL FIBRILLATION HAS REPLACED SINUS RHYTHM VENT. RATE HAS INCREASED BY [address] NOW DEPRESSED IN LATERAL LEADS T WAVE INVERSION NOW EVIDENT IN ANTEROLATERAL LEADS Confirmed by ANABELLA MCCLELLAN MD ([id number]) on 02/02/2018 4:42:23 PM Referred By: Silas López Confirmed By:ANABELLA MCCLELLAN MD
[2018-02-02] MEDS ORDERED: SIMETHICONE 80 MG TAB.CHEW (FP) PO PRN (18:49)
[2018-02-02] MEDS: NIACIN 500 MG TABLET PO SCH (22:19)
[2018-02-02] MEDS: ATORVASTATIN CA 10 MG TABLET (FP) PO SCH (22:20)
[2018-02-02] MEDS: LORazepam 1 MG TABLET PO SCH (22:20)
[2018-02-02] MEDS ORDERED: diphenhydrAMINE HCL 25 MG CAPSULE (FP) PO ONE (23:09)
[2018-02-02] MEDS ORDERED: SODIUM CHLORIDE 1,000 ML IV SCH (23:15)
[2018-02-03] MEDS: buPROPion HCL 75 MG TABLET PO SCH ×3 (06:04→22:19)
[2018-02-03] MEDS: GATIFLOXACIN OS SCH ×3 (06:04→22:23)
[2018-02-03] MEDS ORDERED: PT OWN MED DRAWER 7, Y5N ONE ×3 (08:34→21:44)
[2018-02-03] MEDS: APIXABAN 5 MG TABLET PO SCH ×3 (08:47→22:20)
[2018-02-03] MEDS: PANTOPRAZOLE 40 MG TABLET (FP) PO SCH ×2 (08:47→21:28)
[2018-02-03] MEDS: BUDESONIDE/FORMETEROL FUMARATE 160/4.5 mcg INHALER IH SCH ×3 (08:49→22:22)
[2018-02-03] MEDS: CHOLECALCIFEROL (VITAMIN D3) 1,000 UNIT TABLET (FP) PO SCH ×3 (08:49→22:19)
[2018-02-03] MEDS: NEPAFENAC OS SCH ×2 (08:54→21:27)
--- NOTE | 2018-02-03 09:58 | PN ---
Physical Exam: SUBJECTIVE: Patient seen and examined at the bedside. OBJECTIVE: Rapid afib with rvr early this morning. cardizem increased by cardiology Elver called in to patient pharmacy, confirmed that it is covered by his insurance with a $8.00 co-pay Vital Signs Period Temp Pulse Resp BP Sys/Aguilar Pulse Ox Last 24 Hr 97.7 F-98.9 F 60-130 16-20 98-131/58-84 97 GENERAL: The patient is awake, alert, and fully oriented, in no acute distress. HEAD: Normal with no signs of trauma. EYES: s/p left eye cataract surgery ENT: Ears normal, nares patent, oropharynx clear without exudates, moist mucous membranes. NECK: Trachea midline, full range of motion, supple. LUNGS: Breath sounds equal, clear to auscultation bilaterally, no wheezes, no crackles, no accessory muscle use. HEART: irregular heart rate 77 on ABDOMEN: Soft, nontender, nondistended, normoactive bowel sounds, no guarding, no rebound, no hepatosplenomegaly, no masses. EXTREMITIES: 2+ pulses, warm, well-perfused, no edema. NEUROLOGICAL: Cranial nerves II through XII grossly intact. Normal speech, gait steady. PSYCH: Normal mood, normal affect. SKIN: Warm, dry, normal turgor, no rashes or lesions noted Laboratory Results - last 24 hr 02/02/18 02/02/18 14:05 14:07 Sodium Cancelled 130 L Potassium Cancelled 3.9 D Chloride Cancelled 95 L Carbon Dioxide Cancelled 24 Anion Gap Cancelled 11 BUN Cancelled 23 H D Creatinine Cancelled 2.0 H D Creat Clearance w eGFR Cancelled 32.82 Random Glucose Cancelled 106 D Calcium Cancelled 8.5 Magnesium 2.1 D Total Bilirubin Cancelled 0.2 D AST Cancelled 18 D ALT Cancelled 16 Alkaline Phosphatase Cancelled 56 Total Protein Cancelled 6.8 Albumin Cancelled 3.4 Active Medications Generic Name Dose Route Start Last Admin Trade Name Freq PRN Reason Stop Dose Admin Apixaban 5 mg 02/01/18 22:00 02/03/18 08:47 Eliquis - PO 5 mg BID AVIVA Administration Atorvastatin Calcium 10 mg 02/01/18 22:00 02/02/18 22:20 Lipitor - PO 10 mg HS AVIVA Administration Budesonide/Formoterol Fumarate 2 puff 02/01/18 22:00 02/03/18 08:49 Symbicort 160/4.5mcg - IH 2 puff BID AVIVA Administration Bupropion HCl 150 mg 02/01/18 15:30 02/03/18 06:04 Wellbutrin - PO 150 mg TID AVIVA Administration Chlorthalidone 25 mg 02/02/18 10:00 02/02/18 09:38 Hygroton - PO 25 mg DAILY AVIVA Administration Cholecalciferol 1,000 unit 02/01/18 22:00 02/03/18 08:49 Vitamin D3 - PO 1,000 unit BID AVIVA Administration Diltiazem HCl 120 mg 02/03/18 10:00 02/03/18 08:47 Cardizem Cd - PO 120 mg DAILY AVIVA Administration Sodium Chloride 1,000 mls @ 50 mls/hr 02/02/18 23:15 02/02/18 23:33 Normal Saline - IV 02/03/18 23:13 50 mls/hr ASDIR AVIVA Administration Lorazepam 1 mg 02/02/18 22:00 02/02/18 22:20 Ativan - PO 1 mg HS AVIVA Administration Niacin 1,000 mg 02/01/18 22:00 02/02/18 22:19 Niacin PO 1,000 mg HS AVIVA Administration Non-Formulary Medication 0 ml 02/01/18 22:00 02/03/18 06:04 Gatifloxacin [Gatifloxacin] OS 1 ml TID AVIVA Administration Non-Formulary Medication 0 ml 02/01/18 18:00 02/03/18 08:54 Nepafenac [Ilevro] OS 1 ml DAILY AVIVA Administration Pantoprazole Sodium 40 mg 02/02/18 10:00 02/03/18 08:47 Protonix - PO 40 mg DAILY AVIVA Administration Prednisolone Acetate 1 drop 02/01/18 17:20 02/02/18 13:15 Pred Forte 1% - OS 1 drop QID PRN Administration FOR ITCHING Simethicone 80 mg 02/02/18 18:49 Mylicon - PO Q8H PRN GAS Valsartan 160 mg 02/02/18 10:00 02/02/18 09:38 Diovan - PO 160 mg DAILY AVIVA Administration ASSESSMENT/PLAN: Patient is a 72 y/o male with a past medical history of cataract anxiety, depression, hypertension, copd, and GERD. Patient underwent an elective left cataract removal and was noted to in rapid afib after the procedure. No prior history of atrial fibrillation. Cardiology Atrial fibrillation, new onset Overnight had rapid afib, ekg ordered Monitor on tele Cardizem increased to 180mg daily Monitor on tele If rate more controlled, can be discharge tomorrow with cardiology followup on Eliquis 5mg BID Echo reviewed trop negative x 3 Electrolyte Imbalance Sodium 124 on admission, now 130 Chlorthalidone stopped, continue diovan Hypokalemia, repleted Hypomagnesium, repleted Renal consult outpatient for followup SOHAM, resolved Renal following F.E.N. Fluids:PO adequate Electrolytes: repleted mag and K, remains with low NA Nutrition: low sodium Prophy: eliquis BID. Discharge likely tomorrow. Visit type - Emergency Visit Emergency Visit: Yes ED Registration Date: 02/01/18 Care time: The patient presented to the Emergency Department on the above date and was hospitalized for further evaluation of their emergent condition. - New Patient This patient is new to me today: No - Critical Care Critical Care patient: No - Discharge Referral Referred to [facility] Med P.C.: No
[2018-02-03] MEDS ORDERED: dilTIAZem HCL 60 MG TABLET (FP) PO ONE ×2 (10:17→22:00)
[2018-02-03 10:44] LABS: BASO % 0.5 % (0-2.0); EOS % 1.3 % (0-4.5); HEMATOCRIT 34.4 % (35.4-49); HEMOGLOBIN 11.5 GM/dL (11.7-16.9); LYMPH % 14.6 % (8-40); MCH 30.1 pg (25.7-33.7); MCHC 33.5 g/dl (32.0-35.9); MEAN CELL VOLUME 89.6 fl (80-96); MEAN PLT VOLUME 8.3 fl (7.5-11.1); MONO % 15.6 % (3.8-10.2); PLATELET COUNT 160 K/MM3 (134-434); RBC 3.84 M/mm3 (4.00-5.60); RDW 13.1 % (11.9-15.9); WHITE BLOOD COUNT 5.9 K/mm3 (4.0-10.0)
--- NOTE | 2018-02-03 10:59 | PN ---
Progress Note (short form) - Note Progress Note: s: no cp sob palps dizzy o: Vital Signs Period Temp Pulse Resp BP Sys/Aguilar Pulse Ox Last 24 Hr 97.7 F-98.9 F 60-130 16-20 103-131/58-84 97-97 nad no jvd irregularly irregular nl s1, s2 no mrg cta bl nl ef + bs soft nt nd, no hsm no le e/c/c aaox3 no jaundice, diaphoresis. Current Medications Generic Name Dose Route Start Last Admin Trade Name Nara PRN Reason Stop Dose Admin Apixaban 5 mg 02/01/18 22:00 02/03/18 08:47 Eliquis - PO 5 mg BID AVIVA Administration Atorvastatin Calcium 10 mg 02/01/18 22:00 02/02/18 22:20 Lipitor - PO 10 mg HS AVIVA Administration Budesonide/Formoterol Fumarate 2 puff 02/01/18 22:00 02/03/18 08:49 Symbicort 160/4.5mcg - IH 2 puff BID AVIVA Administration Bupropion HCl 150 mg 02/01/18 15:30 02/03/18 06:04 Wellbutrin - PO 150 mg TID AVIVA Administration Chlorthalidone 25 mg 02/02/18 10:00 02/02/18 09:38 Hygroton - PO 25 mg DAILY AVIVA Administration Cholecalciferol 1,000 unit 02/01/18 22:00 02/03/18 08:49 Vitamin D3 - PO 1,000 unit BID AVIVA Administration Diltiazem HCl 180 mg 02/04/18 10:00 Cardizem Cd - PO DAILY AVIVA Diltiazem HCl 60 mg 02/03/18 22:00 Cardizem - PO 02/03/18 22:01 ONCE ONE Sodium Chloride 1,000 mls @ 50 mls/hr 02/02/18 23:15 02/02/18 23:33 Normal Saline - IV 02/03/18 23:13 50 mls/hr ASDIR AVIVA Administration Lorazepam 1 mg 02/02/18 22:00 02/02/18 22:20 Ativan - PO 1 mg HS AVIVA Administration Niacin 1,000 mg 02/01/18 22:00 02/02/18 22:19 Niacin PO 1,000 mg HS AVIVA Administration Non-Formulary Medication 0 ml 02/01/18 22:00 02/03/18 06:04 Gatifloxacin [Gatifloxacin] OS 1 ml TID AVIVA Administration Non-Formulary Medication 0 ml 02/01/18 18:00 02/03/18 08:54 Nepafenac [Ilevro] OS 1 ml DAILY AVIVA Administration Pantoprazole Sodium 40 mg 02/02/18 10:00 02/03/18 08:47 Protonix - PO 40 mg DAILY AVIVA Administration Prednisolone Acetate 1 drop 02/01/18 17:20 02/02/18 13:15 Pred Forte 1% - OS 1 drop QID PRN Administration FOR ITCHING Simethicone 80 mg 02/02/18 18:49 Mylicon - PO Q8H PRN GAS Valsartan 160 mg 02/02/18 10:00 02/02/18 09:38 Diovan - PO 160 mg DAILY AVIVA Administration CBC, BMP 02/03/18 10:31 ekg: afib/flutter, vr 103 bpm. lad, poor baseline/possible anterior STD tele: afib/flutter 110s, rvr overnight echo 01/2018: nl lv/rv, no sig valve path, nl rvsp cxr: clear lungs a/p: 72 yo with h/o htn, hl, anxiety,depression, copd, and GERD who is s/p cataract surgery today, post-op course complicated by new onset atrial fibrillation. new onset post-op afib - echo wnl - cont ac with eliquis - rvr overnight so will increase dilt to 180 qd and monitor on tele htn - bp controlled hld - con't statin
[2018-02-03 11:05] LABS: ALBUMIN 3.2 g/dl (3.4-5.0); ALK PHOS 51 U/L (45-117); ANION GAP 11 (8-16); BILIRUBIN,TOTAL 0.2 mg/dL (0.2-1.0); BLOOD UREA NITROGEN 22 mg/dL (7-18); CALCIUM 8.2 mg/dL (8.5-10.1); CHLORIDE 95 mmol/L (98-107); CO2 24 mmol/L (21-32); CREATININE 1.3 mg/dL (0.7-1.3); GLUCOSE,RANDOM 107 mg/dL (74-106); MAGNESIUM 1.5 mg/dL (1.8-2.4); POTASSIUM 3.3 mmol/L (3.5-5.1); SGOT/AST 19 U/L (15-37); SGPT/ALT 16 U/L (12-78); SODIUM 130 mmol/L (136-145); TOT PROT 6.4 g/dl (6.4-8.2)
[2018-02-03] MEDS ORDERED: POTASSIUM CHLORIDE TABS 20 MEQ TABLET.ER (FP) PO ONE (11:10)
[2018-02-03] MEDS ORDERED: MAGNESIUM 2GM/50ML STERILE WATER IVPB IVPB ONE (11:10)
--- NOTE | 2018-02-03 11:45 | CONSULT ---
Consult - text type - Consultation Consultation Note: Renal Consult for SOHAM Home Medications Medication Instructions Recorded Atenolol [Tenormin -] 25 mg PO DAILY 09/23/13 Budesonide/Formeterol Fumarate 2 inh PO BID 09/23/13 [SYMBICORT 160/4.5mcg -] Bupropion HCl [Wellbutrin -] 75 mg PO TID 09/23/13 Chlorthalidone [Hygroton -] 25 mg PO DAILY 09/23/13 Cholecalciferol (Vitamin D3) 1,000 unit PO BID 09/23/13 [Vitamin D] Lorazepam 0.5 mg PO 5XD 09/23/13 Niacin [Niaspan] 1,000 mg PO HS 09/23/13 Omeprazole [Prilosec (RX)] 40 mg PO DAILY 09/23/13 Potassium Chloride [Klor-Con 8] 8 meq PO TID 09/23/13 Simvastatin [Zocor -] 20 mg PO HS 09/23/13 Valsartan [Diovan] 160 mg PO DAILY 09/23/13 Aspirin [Ecotrin] 81 mg PO DAILY 07/16/16 Gatifloxacin 2.5 ml OS TID 02/01/18 Nepafenac [Ilevro] 1.7 ml OS DAILY 02/01/18 Prednisolone 1% Ophthalmic [Pred 1 drop OS QID PRN 02/01/18 Forte 1% -] Apixaban [Eliquis -] 5 mg PO BID #60 tablet 02/02/18 Vital Signs Temperature 98.9 F 02/03/18 08:45 Pulse Rate 136 H 02/03/18 11:00 Respiratory Rate 20 02/03/18 11:00 Blood Pressure 126/80 02/03/18 11:00 O2 Sat by Pulse Oximetry (%) 97 02/03/18 09:00 Intake & Output 01/31/18 02/01/18 02/02/18 02/03/18 23:59 23:59 23:59 23:59 Intake Total 700 800 520 Output Total 650 Balance 50 800 520 Weight 58.967 kg 58.967 kg 58.898 kg CBC, BMP 02/03/18 10:31 02/03/18 10:31 Current Medications Apixaban (Eliquis -) 5 mg PO BID [facility] Last Admin: 02/03/18 08:47 Dose: 5 mg Atorvastatin Calcium (Lipitor -) 10 mg PO HS [facility] Last Admin: 02/02/18 22:20 Dose: 10 mg Budesonide/Formoterol Fumarate (Symbicort 160/4.5mcg -) 2 puff IH BID [facility] Last Admin: 02/03/18 08:49 Dose: 2 puff Bupropion HCl (Wellbutrin -) 150 mg PO TID [facility] Last Admin: 02/03/18 06:04 Dose: 150 mg Chlorthalidone (Hygroton -) 25 mg PO DAILY [facility] Last Admin: 02/02/18 09:38 Dose: 25 mg Cholecalciferol (Vitamin D3 -) 1,000 unit PO BID [facility] Last Admin: 02/03/18 08:49 Dose: 1,000 unit Diltiazem HCl (Cardizem Cd -) 180 mg PO DAILY [facility] Diltiazem HCl (Cardizem -) 60 mg PO ONCE ONE Stop: 02/03/18 22:01 Sodium Chloride (Normal Saline -) 1,000 mls @ 50 mls/hr IV ASDIR [facility] Stop: 02/03/18 23:13 Last Admin: 02/02/18 23:33 Dose: 50 mls/hr Lorazepam (Ativan -) 1 mg PO HS [facility] Last Admin: 02/02/18 22:20 Dose: 1 mg Niacin (Niacin) 1,000 mg PO HS [facility] Last Admin: 02/02/18 22:19 Dose: 1,000 mg Non-Formulary Medication (Gatifloxacin [Gatifloxacin]) 0 ml OS TID [facility] Last Admin: 02/03/18 06:04 Dose: 1 ml Non-Formulary Medication (Nepafenac [Ilevro]) 0 ml OS DAILY [facility] Last Admin: 02/03/18 08:54 Dose: 1 ml Pantoprazole Sodium (Protonix -) 40 mg PO DAILY [facility] Last Admin: 02/03/18 08:47 Dose: 40 mg Potassium Chloride (K-Dur -) 40 meq PO ONCE ONE Stop: 02/03/18 11:11 Prednisolone Acetate (Pred Forte 1% -) 1 drop OS QID PRN PRN Reason: FOR ITCHING Last Admin: 02/02/18 13:15 Dose: 1 drop Simethicone (Mylicon -) 80 mg PO Q8H PRN PRN Reason: GAS Valsartan (Diovan -) 160 mg PO DAILY [facility] Last Admin: 02/02/18 09:38 Dose: 160 mg 72 year odl gentleman with pmhx of htn, hl, anxiety,depression, copd, and GERD admitted with raid Aib s/p Cataract Sx with SOHAM with Cr of 2 and Na of 130 #SOHAM likely secondary to renal hypoprofuiosn in setting of rapid afib and ARB Renal function now improved can resume ARB as outpatient can d/c IVF oral intake as tolerated #Hyponatremia in setting of thiazide diuretic hold diuretic regular diet no indication for 3% saline repeat labs as a outpatient #Rapid Afib rate control as per cardiology on Eliquis Thank you Johnny Galan DO
--- NOTE | 2018-02-03 14:50 | EKG ---
Test Reason : Blood Pressure : / mmHG Vent. Rate : 116 BPM Atrial Rate : 300 BPM P-R Int : 000 ms QRS Dur : 092 ms QT Int : 352 ms P-R-T Axes : 000 -32 037 degrees QTc Int : 489 ms ATRIAL FIBRILLATION WITH RAPID VENTRICULAR RESPONSE LEFT AXIS DEVIATION NONSPECIFIC ST AND T WAVE ABNORMALITY ABNORMAL ECG Confirmed by KATT DONOVAN MD ([id number]) on 02/03/2018 2:50:10 PM Referred By: Silas López Confirmed By:KATT DONOVAN MD
[2018-02-03 17:22] LABS: URINE APPEARANCE CLEAR; URINE BILIRUBIN NEGATIVE (NEGATIVE); URINE BLOOD NEGATIVE (NEGATIVE); URINE COLOR LTYELLOW; URINE GLUCOSE (UA) NEGATIVE (NEGATIVE); URINE KETONE 1+ (NEGATIVE); URINE LEUK ESTERASE NEGATIVE (NEGATIVE); URINE NITRITE NEGATIVE (NEGATIVE); URINE PROTEIN NEGATIVE (NEGATIVE); URINE UROBILINOGEN NEGATIVE mg/dL (0.2-1.0)
[2018-02-03 20:04] LABS: ALBUMIN 3.1 g/dl (3.4-5.0); ALK PHOS 51 U/L (45-117); ANION GAP 8 (8-16); BILIRUBIN,TOTAL 0.1 mg/dL (0.2-1.0); BLOOD UREA NITROGEN 21 mg/dL (7-18); CALCIUM 8.1 mg/dL (8.5-10.1); CHLORIDE 98 mmol/L (98-107); CO2 26 mmol/L (21-32); CREATININE 1.4 mg/dL (0.7-1.3); GLUCOSE,RANDOM 109 mg/dL (74-106); POTASSIUM 3.8 mmol/L (3.5-5.1); SGOT/AST 15 U/L (15-37); SGPT/ALT 16 U/L (12-78); SODIUM 132 mmol/L (136-145); TOT PROT 6.2 g/dl (6.4-8.2)
[2018-02-03] MEDS: CHLORTHALIDONE 25 MG TABLET PO SCH (21:28)
[2018-02-03] MEDS: LORazepam 1 MG TABLET PO SCH (22:19)
[2018-02-03] MEDS: ATORVASTATIN CA 10 MG TABLET (FP) PO SCH (22:20)
[2018-02-03] MEDS: NIACIN 500 MG TABLET PO SCH (22:21)
[2018-02-03] MEDS: prednisoLONE ACETATE 1% OPHTH SUSP 5 ML BOTTLE OS PRN (22:22)
[2018-02-04] MEDS ORDERED: PT OWN MED DRAWER 7, Y5N ONE ×8 (00:30→12:51)
[2018-02-04] MEDS: buPROPion HCL 75 MG TABLET PO SCH ×2 (06:39→13:06)
[2018-02-04] MEDS: GATIFLOXACIN OS SCH ×2 (06:40→13:06)
[2018-02-04] MEDS: prednisoLONE ACETATE 1% OPHTH SUSP 5 ML BOTTLE OS PRN ×3 (06:41→09:59)
[2018-02-04 07:55] LABS: BASO % 0.6 % (0-2.0); HEMATOCRIT 36.4 % (35.4-49); HEMOGLOBIN 12.1 GM/dL (11.7-16.9); LYMPH % 30.5 % (8-40); MCH 30.4 pg (25.7-33.7); MCHC 33.3 g/dl (32.0-35.9); MEAN CELL VOLUME 91.2 fl (80-96); MEAN PLT VOLUME 9.3 fl (7.5-11.1); MONO % 18.4 % (3.8-10.2); NEUT % 46.5 % (42.8-82.8); PLATELET COUNT 166 K/MM3 (134-434); RBC 3.99 M/mm3 (4.00-5.60); RDW 13.2 % (11.9-15.9); WHITE BLOOD COUNT 5.7 K/mm3 (4.0-10.0)
[2018-02-04 08:08] LABS: ANION GAP 15 (8-16); BLOOD UREA NITROGEN 14 mg/dL (7-18); CALCIUM 8.4 mg/dL (8.5-10.1); CHLORIDE 99 mmol/L (98-107); CO2 23 mmol/L (21-32); GLUCOSE,RANDOM 99 mg/dL (74-106); POTASSIUM 4.1 mmol/L (3.5-5.1); SODIUM 137 mmol/L (136-145)
[2018-02-04 08:12] LABS: ALK PHOS 52 U/L (45-117); BILIRUBIN,TOTAL 0.5 mg/dL (0.2-1.0); CREATININE 1.2 mg/dL (0.7-1.3); SGOT/AST 17 U/L (15-37); SGPT/ALT 17 U/L (12-78); TOT PROT 6.6 g/dl (6.4-8.2)
[2018-02-04 09:13] LABS: MAGNESIUM 1.9 mg/dL (1.8-2.4)
[2018-02-04] MEDS: BUDESONIDE/FORMETEROL FUMARATE 160/4.5 mcg INHALER IH SCH (09:48)
[2018-02-04] MEDS: NEPAFENAC OS SCH (09:48)
[2018-02-04] MEDS: APIXABAN 5 MG TABLET PO SCH (09:49)
[2018-02-04] MEDS: CHOLECALCIFEROL (VITAMIN D3) 1,000 UNIT TABLET (FP) PO SCH (09:49)
[2018-02-04] MEDS: PANTOPRAZOLE 40 MG TABLET (FP) PO SCH (09:49)
--- NOTE | 2018-02-04 10:27 | DS ---
Physical Examination Vital Signs: Vital Signs Temperature 97.7 F 02/04/18 05:53 Pulse Rate 74 02/04/18 05:53 Respiratory Rate 20 02/04/18 05:53 Blood Pressure 128/70 02/04/18 05:53 O2 Sat by Pulse Oximetry (%) 97 02/03/18 21:00 Labs: CBC, BMP 02/04/18 06:00 02/04/18 06:00 Discharge Summary Reason For Visit: DENSE CATARACT Current Active Problems Anxiety (Acute) Atrial fibrillation (Acute) COPD (chronic obstructive pulmonary disease) (Acute) Depression (Acute) GERD (gastroesophageal reflux disease) (Acute) Hyperlipidemia (Acute) Hypertension (Acute) Condition: Improved - Instructions Diet, Activity, Other Instructions: POST OP INSTRUCTIONS Please read these instructions to understand your responsibilities after surgery , You will recover faster, be more comfortable, and reduce the risk of complications by following Dr López' instructions. 1. You may be up and about as usual. 2. Please restrict strenuous activity for several days. 3. Sleep either on your back or opposite side for 3 nights. 4. DO NOT rub or squeeze your operative eye. 5. You may shower and bathe the day after surgery if you wish. Avoid getting soap in the eye. 6. Reading, writing and television are permitted. 7. You must use the eye shield (provided in your kit) when sleeping for 4 nights. Tape it against your forehead and cheekbone so it will not touch your eye. 8. Wear dark sunglasses (provided in your kit) outside to protect you from sun and wind. Use clear glasses (Or your own glasses) in the house. USE EYE PROTECTION AT ALL TIMES. 9. Please use all medications as instructed. 10. Follow-up in office tomorrow as instructed. Referrals: Osvaldo East MD [Staff Physician] - (Please follow-up with cardiology within 2 -3 days) Johnny Galan MD [Staff Physician] - 1 Week Gagan Hernandez MD [Staff Physician] - 1 Week Disposition: HOME - Home Medications Comprehensive Discharge Medication List: Ambulatory Orders Budesonide/Formeterol Fumarate [SYMBICORT 160/4.5mcg -] 2 inh PO BID 09/23/13 Cholecalciferol (Vitamin D3) [Vitamin D] 1,000 unit PO BID 09/23/13 Lorazepam 0.5 mg PO 5XD 09/23/13 Niacin [Niaspan] 1,000 mg PO HS 09/23/13 Omeprazole [Prilosec (RX)] 40 mg PO DAILY 09/23/13 Potassium Chloride [Klor-Con 8] 8 meq PO TID 09/23/13 Simvastatin [Zocor -] 20 mg PO HS 09/23/13 Valsartan [Diovan] 160 mg PO DAILY 09/23/13 Gatifloxacin 2.5 ml OS TID 02/01/18 Nepafenac [Ilevro] 1.7 ml OS DAILY 02/01/18 Prednisolone 1% Ophthalmic [Pred Forte 1% -] 1 drop OS QID PRN 02/01/18 Apixaban [Eliquis -] 5 mg PO BID #60 tablet 02/02/18 Bupropion HCl [Wellbutrin -] 150 mg PO TID #90 tablet 02/04/18 Diltiazem Cd [Cardizem Cd -] 180 mg PO DAILY #30 cap.cd.24h 02/04/18 - Discharge Referral Referred to [facility] No
--- NOTE | 2018-02-04 10:52 | PN ---
Progress Note (short form) - Note Progress Note: s: no cp sob palps dizzy o: Vital Signs Period Temp Pulse Resp BP Sys/Aguilar Pulse Ox Last 24 Hr 97.7 F-98.6 F 70-136 16-20 108-141/51-80 97 nad no jvd rrr nl s1, s2 no mrg cta bl nl ef + bs soft nt nd, no hsm no le e/c/c aaox3 no jaundice, diaphoresis. Current Medications Generic Name Dose Route Start Last Admin Trade Name Nara PRN Reason Stop Dose Admin Apixaban 5 mg 02/01/18 22:00 02/04/18 09:49 Eliquis - PO 5 mg BID [facility] Administration Atorvastatin Calcium 10 mg 02/01/18 22:00 02/03/18 22:20 Lipitor - PO 10 mg HS [facility] Administration Budesonide/Formoterol Fumarate 2 puff 02/01/18 22:00 02/04/18 09:48 Symbicort 160/4.5mcg - IH 2 puff BID [facility] Administration Bupropion HCl 150 mg 02/01/18 15:30 02/04/18 06:39 Wellbutrin - PO 150 mg TID [facility] Administration Cholecalciferol 1,000 unit 02/01/18 22:00 02/04/18 09:49 Vitamin D3 - PO 1,000 unit BID [facility] Administration Diltiazem HCl 180 mg 02/04/18 10:00 02/04/18 09:49 Cardizem Cd - PO 180 mg DAILY [facility] Administration Lorazepam 1 mg 02/02/18 22:00 02/03/18 22:19 Ativan - PO 1 mg HS [facility] Administration Niacin 1,000 mg 02/01/18 22:00 02/03/18 22:21 Niacin PO Not Given HS [facility] Non-Formulary Medication 0 ml 02/01/18 22:00 02/04/18 06:40 Gatifloxacin [Gatifloxacin] OS 1 ml TID [facility] Administration Non-Formulary Medication 0 ml 02/01/18 18:00 02/04/18 09:48 Nepafenac [Ilevro] OS 1 ml DAILY [facility] Administration Pantoprazole Sodium 40 mg 02/02/18 10:00 02/04/18 09:49 Protonix - PO 40 mg DAILY [facility] Administration Prednisolone Acetate 1 drop 02/01/18 17:20 02/04/18 09:59 Pred Forte 1% - OS 1 drop QID PRN Administration FOR ITCHING Simethicone 80 mg 02/02/18 18:49 Mylicon - PO Q8H PRN GAS Valsartan 160 mg 02/02/18 10:00 02/02/18 09:38 Diovan - PO 160 mg DAILY [facility] Administration CBC, BMP 02/04/18 06:00 02/04/18 06:00 ekg: afib/flutter, vr 103 bpm. lad, poor baseline/possible anterior STD tele: sr echo 01/2018: nl lv/rv, no sig valve path, nl rvsp cxr: clear lungs a/p: 72 yo with h/o htn, hl, anxiety,depression, copd, and GERD who is s/p cataract surgery today, post-op course complicated by new onset atrial fibrillation. new onset post-op afib - echo wnl - cont ac with eliquis - in sr, cont dilt 180 qd htn - bp controlled hld - con't statin cardiac posadas stable for dc with outpt f/u 2 wks
[2018-02-04 12:15] VITALS: BP 117/78; PULSE 87; TEMP 98.4
--- NOTE | 2018-02-04 12:40 | PN ---
Progress Note (short form) - Note Progress Note: Renal follow up for SOHAM Pt seen and examined at the bedside no acute complaints for discharge home today no sob, chest pain, abd pain, N/V/D making urine Vital Signs Temperature 98.4 F 02/04/18 12:01 Pulse Rate 87 02/04/18 12:01 Respiratory Rate 20 02/04/18 12:01 Blood Pressure 117/78 02/04/18 12:01 O2 Sat by Pulse Oximetry (%) 97 02/04/18 09:00 Intake & Output 02/01/18 02/02/18 02/03/18 02/04/18 23:59 23:59 23:59 23:59 Intake Total 700 800 770 Output Total 650 Balance 50 800 770 Weight 58.967 kg 58.967 kg 58.898 kg 58.23 kg NAD awake and alert RRR CTA no LE edema CBC, BMP 02/04/18 06:00 02/04/18 06:00 Current Medications Apixaban (Eliquis -) 5 mg PO BID [facility] Last Admin: 02/04/18 09:49 Dose: 5 mg Atorvastatin Calcium (Lipitor -) 10 mg PO [facility] Last Admin: 02/03/18 22:20 Dose: 10 mg Budesonide/Formoterol Fumarate (Symbicort 160/4.5mcg -) 2 puff IH BID [facility] Last Admin: 02/04/18 09:48 Dose: 2 puff Bupropion HCl (Wellbutrin -) 150 mg PO TID [facility] Last Admin: 02/04/18 06:39 Dose: 150 mg Cholecalciferol (Vitamin D3 -) 1,000 unit PO BID [facility] Last Admin: 02/04/18 09:49 Dose: 1,000 unit Diltiazem HCl (Cardizem Cd -) 180 mg PO DAILY [facility] Last Admin: 02/04/18 09:49 Dose: 180 mg Lorazepam (Ativan -) 1 mg PO [facility] Last Admin: 02/03/18 22:19 Dose: 1 mg Niacin (Niacin) 1,000 mg PO HS [facility] Last Admin: 02/03/18 22:21 Dose: Not Given Non-Formulary Medication (Gatifloxacin [Gatifloxacin]) 0 ml OS TID [facility] Last Admin: 02/04/18 06:40 Dose: 1 ml Non-Formulary Medication (Nepafenac [Ilevro]) 0 ml OS DAILY [facility] Last Admin: 02/04/18 09:48 Dose: 1 ml Pantoprazole Sodium (Protonix -) 40 mg PO DAILY [facility] Last Admin: 02/04/18 09:49 Dose: 40 mg Prednisolone Acetate (Pred Forte 1% -) 1 drop OS QID PRN PRN Reason: FOR ITCHING Last Admin: 02/04/18 09:59 Dose: 1 drop Simethicone (Mylicon -) 80 mg PO Q8H PRN PRN Reason: GAS Valsartan (Diovan -) 160 mg PO DAILY [facility] Last Admin: 02/02/18 09:38 Dose: 160 mg 72 year odl gentleman with pmhx of htn, hl, anxiety,depression, copd, and GERD admitted with raid Aib s/p Cataract Sx with SOHAM with Cr of 2 and Na of 130 #SOHAM likely secondary to renal hypoprofuiosn in setting of rapid afib and ARB Renal function improved and stable would continue to hold diuretic because of hyponatremia should have BMP repeated as outpatient #Hyponatremia in setting of thiazide diuretic would discontinue diuretic going forward #Rapid Afib HR is controlled on Eliquis Thank you Johnny Galan DO
== END 2018-02-04 14:03 | disposition home or self-care (01) | DRG 988 ==
LOC: FASU 08:37 → SUATTDRO 08:37 → J4S 14:45 → FASU 14:46 → J4S 14:46
PROVIDERS: ADMIT Internal Medicine; ATTEND Registered Nurse
PROC: 08RK3JZ Replacement of Left Lens with Synthetic Substitute, Percutaneous Approach (ICD-10-PCS; principal; 2018-02-01 10:44)
DX: I97.89 Other postprocedural complications and disorders of the circulatory system, not elsewhere classified (principal); N17.9 Acute kidney failure, unspecified; E87.1 Hypo-osmolality and hyponatremia; H25.89 Other age-related cataract; I48.91 Unspecified atrial fibrillation; Y83.8 Other surgical procedures as the cause of abnormal reaction of the patient, or of later complication, without mention of misadventure at the time of the procedure; K21.9 Gastro-esophageal reflux disease without esophagitis; J44.9 Chronic obstructive pulmonary disease, unspecified; I10 Essential (primary) hypertension; F32.9 Major depressive disorder, single episode, unspecified; E78.5 Hyperlipidemia, unspecified; Z87.891 Personal history of nicotine dependence; E87.8 Other disorders of electrolyte and fluid balance, not elsewhere classified
CPT/HCPCS: 36415; 71046-TC-FY; 80053; 81003; 82550; 82570; 83735; 83880; 84156; 84436; 84443; 84484; 84540; 85025; 85027; 93005; 93010; 93306-TC; 94760; 97116-GP; 97161-GP; J7030

== ENCOUNTER 2018-02-13 19:12 | Observation (INO) | payer OTHER ==
--- NOTE | 2018-02-13 20:13 | PDOC ---
History of Present Illness - General History Source: Patient Exam Limitations: No Limitations - History of Present Illness Initial Comments: 02/13/18 20:24 The patient is a 72 year old male, with a significant past medical history of COPD, hypertension, hyperlipidemia, GERD, who presents to the emergency department with, 4 hours of epigastric pain. The patient reports his symptoms onset after eating dinner. He reports when his symptoms onset he had nausea without emesis, difficulty breathing, and pressure on his chest which lasted an hour and resolved. Secondary to his symptoms, he reports significant bilateral edema to his feet and chills without fever. The patient was admitted to [facility] for tachycardia last week post cataract surgery. The patient visited his PCP Dr. Jean Baptiste for a routine visit this morning and was told his exam was normal with minimal edema to the bilateral lower extremities. He denies any recent fevers, chills, headache or dizziness. He denies any recent nausea, vomit, diarrhea or constipation. He denies any recent chest pain or shortness of breath. He denies any recent dysuria, frequency, urgency or hematuria. Allergies: NKA Past surgical history: None reported. Social History: Former smoker. Denies EtOH use and recreational drug use. Primary Care Physician: Dr. Matheus Jean Baptiste <Elpidio Packer - Last Filed: 02/13/18 21:03> <Oneyda Traore - Last Filed: 02/14/18 04:08> - General Chief Complaint: Nausea Stated Complaint: STOMACH PAIN, NAUSEA, SHAKING Time Seen by Provider: 02/13/18 19:25 Past History <Elpidio Packer - Last Filed: 02/13/18 21:03> - Past Medical History Anemia: No Asthma: Yes Cancer: No Cardiac Disorders: No CVA: No COPD: Yes CHF: No Dementia: No Diabetes: No GI Disorders: Yes (GERD) Disorders: No HTN: Yes Hypercholesterolemia: Yes Liver Disease: No Psychiatric Problems: Yes (ANXIETY) Seizures: No Thyroid Disease: No - Surgical History Abdominal Surgery: No Appendectomy: No Cardiac Surgery: No Cholecystectomy: Yes Lung Surgery: No Neurologic Surgery: No Orthopedic Surgery: Yes (DEMETRICE SHOULDER ARTHROSCOPIES) - Immunization History Td Vaccination: Yes Immunization Up to Date: Yes - Suicide/Smoking/Psychosocial Hx Smoking Status: No Smoking History: Former smoker Have you smoked in the past 12 months: No Number of Cigarettes Smoked Daily: 0 If you are a former smoker, when did you quit?: 1990s Cigars Per Day: 0 Hx Alcohol Use: No Drug/Substance Use Hx: No Substance Use Type: None Hx Substance Use Treatment: No <Oneyda Traore - Last Filed: 02/14/18 04:08> - Past Medical History Allergies/Adverse Reactions: Allergies Allergy/AdvReac Type Severity Reaction Status Date / Time No Known Drug Allergies Allergy Verified 02/01/18 09:39 Home Medications: Ambulatory Orders Cholecalciferol (Vitamin D3) [Vitamin D] 1,000 unit PO BID 09/23/13 Lorazepam 0.5 mg PO 5XD 09/23/13 Niacin [Niaspan] 1,000 mg PO HS 09/23/13 Omeprazole [Prilosec (RX)] 20 mg PO DAILY 09/23/13 Potassium Chloride [Klor-Con 8] 8 meq PO TID 09/23/13 Simvastatin [Zocor -] 20 mg PO HS 09/23/13 Valsartan [Diovan] 160 mg PO DAILY 09/23/13 Apixaban [Eliquis -] 5 mg PO BID #60 tablet 02/02/18 Bupropion HCl [Wellbutrin -] 150 mg PO TID #90 tablet 02/04/18 Diltiazem Cd [Cardizem Cd -] 180 mg PO DAILY #30 cap.cd.24h 02/04/18 Chlorthalidone 25 mg PO DAILY 02/13/18 Fluticasone/Salmeterol [Advair Hfa 45-21 Mcg Inhaler] 2 inh PO BID 02/13/18 Review of Systems - Review of Systems Able to Perform ROS?: Yes Comments:: 02/13/18 20:25 CONSTITUTIONAL: Absent: fever, no chills, no fatigue EYES: Absent: visual changes ENT: Absent: ear pain, no sore throat CARDIOVASCULAR: Absent: chest pain, no palpitations RESPIRATORY: Absent: cough, no SOB GI: Present: Epigastric pain Absent: no nausea, no vomiting, no constipation, no diarrhea GENITOURINARY: Absent: dysuria, no frequency, no hematuria MUSKULOSKELETAL: Absent: back pain, no arthralgia, no myalgia EXTREMITIES: Present: Edema to the bilateral lower extremities. SKIN: Absent: rash NEURO: Absent: headache All Other Systems: Reviewed and Negative <Elpidio Packer - Last Filed: 02/13/18 21:03> *Physical Exam - Vital Signs Last Vital Signs Temp Pulse Resp BP Pulse Ox 98.3 F 82 18 136/71 99 02/13/18 19:19 02/13/18 19:19 02/13/18 19:19 02/13/18 19:19 02/13/18 19:19 - Physical Exam Comments: 02/13/18 21:03 GENERAL: The patient is awake, alert, and fully oriented, in no acute distress. HEAD: Normal with no signs of trauma. EYES: Pupils equal, round and reactive to light, extraocular movements intact, sclera anicteric, conjunctiva clear with no pallor. ENT: Ears normal, nares patent, oropharynx clear without exudates. Moist mucous membranes. NECK: Normal range of motion, supple without lymphadenopathy, JVD, or masses. LUNGS: Breath sounds equal, clear to auscultation bilaterally. No wheeze/ crackles. (+)HEART: +Irregularly irregular. Normal S1 and S2 without murmur or rub. (+)ABDOMEN: Firm, distended. Minimal epigastric tenderness. Normal bowel sounds. No guarding or rebound. No palpable masses. No hepatosplenomegaly. (+)EXTREMITIES: +1 Pitting edema to the bilateral calves. Normal range of motion. No clubbing or cyanosis. No cords, erythema, or tenderness. NEUROLOGICAL: Cranial nerves II through XII grossly intact. Normal speech, normal gait. PSYCH: Normal mood, normal affect. SKIN: Warm, Dry, normal turgor, no rashes or lesions noted. <Elpidio Packer - Last Filed: 02/13/18 21:03> ED Treatment Course - LABORATORY CBC & Chemistry Diagram: 02/13/18 21:00 02/13/18 21:00 <Oneyda Traore - Last Filed: 02/14/18 04:08> Medical Decision Making - Medical Decision Making Documentation has been prepared under my direction and personally reviewed by me in its entirety. I attest that this documented accurately reflects all work, treatment, procedures and medical decision making performed by me. 02/14/18 00:28 Patient had been given DuoNeb nebulizer treatment for wheezing soon after admission; because of his progressive lower extremity edema, he was also given 40 mg of Lasix IV. Patient given Protonix 40 mg IV 12-lead electrocardiogram performed and interpreted by me. This showed atrial flutter with variable AV block at 88 beats per minute; there is left axis deviation There is no significant change in morphology from 12-lead electrocardiogram of Chest x-ray reveals no evidence of infiltrates/masses/effusion/vascular congestion 02/14/18 01:02 Because of the patient's epigastric pain, nausea and abdominal distention, abdominal/pelvic CT performed to rule out small bowel obstruction or other acute process. No evidence of SBO, however there is a 2.6 cm fluid-filled esophageal/gastric diverticulum present in the Right side of patient's hiatal hernia. Results discussed with patient's PMD, Dr. Jean Baptiste. He requested that Hospitalist service admit patient under observation Dr. Lincoln contacted and case discussed with her. Patient will be admitted to hospitalist service, observation status. Gastroenterology consult will be obtained. Patient will be kept NPO 02/14/18 02:28 Patient complaining of persistent epigastric(subxiphoid) pain. Patient will be given morphine 2 mg IV for analgesia <Oneyda Traore - Last Filed: 02/14/18 04:08> *DC/Admit/Observation/Transfer - Attestations Scribe Attestion: 02/13/18 20:25 Documentation prepared by Elpidio Packer, acting as medical cost consultant for Oneyda Traore MD. <Elpidio Packer - Last Filed: 02/13/18 21:03> - Discharge Dispostion Admit: Yes <Oneyda Traore - Last Filed: 02/14/18 04:08> Diagnosis at time of Disposition: Esophageal diverticulum Abdominal pain Qualifiers: Abdominal location: epigastric Qualified Code(s): R10.13 - Epigastric pain CHF (congestive heart failure) Qualifiers: Heart failure type: unspecified Heart failure chronicity: acute Qualified Code( s): I50.9 - Heart failure, unspecified - Discharge Dispostion Condition at time of disposition: Fair
[2018-02-13 20:15] VITALS: BMI 21.6
[2018-02-13 21:20] LABS: URINE APPEARANCE Clear; URINE BILIRUBIN Negative (NEGATIVE); URINE BLOOD Negative (NEGATIVE); URINE COLOR YELLOW; URINE GLUCOSE (UA) Negative (NEGATIVE); URINE KETONE Negative (NEGATIVE); URINE LEUK ESTERASE Negative (NEGATIVE); URINE NITRITE Negative (NEGATIVE); URINE PROTEIN Negative (NEGATIVE); URINE UROBILINOGEN 0.2 (0.2-1.0)
[2018-02-13 21:23] LABS: BASO % 3.3 % (0-2.0); EOS % 4.2 % (0-4.5); HEMATOCRIT 33.1 % (35.4-49); LYMPH % 10.8 % (8-40); MCH 29.4 pg (25.7-33.7); MCHC 33.2 g/dl (32.0-35.9); MEAN CELL VOLUME 88.5 fl (80-96); MEAN PLT VOLUME 7.9 fl (7.5-11.1); MONO % 7.7 % (3.8-10.2); PLATELET COUNT 365 K/MM3 (134-434); RBC 3.74 M/mm3 (4.00-5.60); RDW 12.3 % (11.9-15.9); WHITE BLOOD COUNT 9.8 K/mm3 (4.0-10.8)
[2018-02-13 21:36] LABS: INR 1.35 (0.82-1.09)
[2018-02-13 21:43] LABS: ALBUMIN 3.4 g/dl (3.5-5.0); ALK PHOS 49 U/L (32-92); ANION GAP 7 (8-16); BLOOD UREA NITROGEN 14 mg/dl (7-18); CALCIUM 8.7 mg/dl (8.4-10.2); CHLORIDE 99 mmol/L (98-107); CO2 24 mmol/L (22-28); GLUCOSE,RANDOM 104 mg/dl (74-106); POTASSIUM 4.1 mmol/L (3.5-5.1); SGOT/AST 18 U/L (10-42); SGPT/ALT 12 U/L (10-40); SODIUM 130 mmol/L (136-145); TOT PROT 6.5 g/dl (6.4-8.3)
[2018-02-13 22:08] LABS: BILIRUBIN,TOTAL < 0.5 mg/dl (0.2-1.0)
[2018-02-13] MEDS ORDERED: PANTOPRAZOLE SODIUM 40 MG VIAL IVPB ONE (22:31)
[2018-02-13] MEDS ORDERED: KETOROLAC TROMETHAMINE 30 MG/1 ML VIAL IVPUSH ONE (22:32)
[2018-02-13] MEDS ORDERED: KETOROLAC TROMETHAMINE 30 MG/1 ML VIAL ONE (22:34)
[2018-02-13] MEDS ORDERED: PANTOPRAZOLE SODIUM 40 MG VIAL ONE (22:35)
[2018-02-13] MEDS ORDERED: ALBUTEROL SO4 2.5/IPRATROPIUM 0.5 INH SOL 3 ML VIAL.NEB. NEB ONE (22:54)
[2018-02-13] MEDS ORDERED: FUROSEMIDE 40 MG/4 ML INJECTABLE VIAL IVPUSH ONE (23:09)
[2018-02-13] MEDS ORDERED: FUROSEMIDE 40 MG/4 ML INJECTABLE VIAL ONE (23:14)
[2018-02-14] MEDS ORDERED: SODIUM CHLORIDE 1,000 ML IV SCH (01:30)
[2018-02-14] MEDS ORDERED: morphine CARPU-JECT 2 MG/1 ML DISP.SYRIN ONE (02:27)
[2018-02-14] MEDS: morphine CARPU-JECT 2 MG/1 ML DISP.SYRIN IVPUSH ONE ×2 (02:36→07:57)
[2018-02-14] MEDS: SODIUM CHLORIDE 1,000 ML IV SCH (05:33)
[2018-02-14] MEDS: LORazepam 0.5 MG TABLET PO SCH ×5 (05:33→21:59)
[2018-02-14] MEDS: buPROPion HCL 75 MG TABLET PO SCH ×3 (05:33→21:59)
[2018-02-14 08:59] LABS: ANION GAP 5 (8-16); BLOOD UREA NITROGEN 15 mg/dl (7-18); CHLORIDE 98 mmol/L (98-107); CO2 25 mmol/L (22-28); CREATININE 1.2 mg/dl (0.6-1.3); GLUCOSE,RANDOM 106 mg/dl (74-106); POTASSIUM 3.9 mmol/L (3.5-5.1); SODIUM 128 mmol/L (136-145)
[2018-02-14 09:03] LABS: HEMATOCRIT 32.2 % (35.4-49); HEMOGLOBIN 10.8 GM/dl (11.7-16.9); MCH 29.7 pg (25.7-33.7); MCHC 33.3 g/dl (32.0-35.9); MEAN CELL VOLUME 89.1 fl (80-96); MEAN PLT VOLUME 8.1 fl (7.5-11.1); PLATELET COUNT 319 K/MM3 (134-434); RBC 3.62 M/mm3 (4.00-5.60); WHITE BLOOD COUNT 10.2 K/mm3 (4.0-10.8)
--- NOTE | 2018-02-14 09:04 | HP ---
CHIEF COMPLAINT: abdominal pain and bilateral lower extremity swelling PCP: Dr Jean Baptiste [employer] Officer: Dr East HISTORY OF PRESENT ILLNESS: Patient is a 72 y/o male with as past medical history of anxiety, GERD, bilateral cataracts, depression, afib, and copd. Patient reports epigastric pain since yesterday evening that worsens after eating. Patient also reports billateral lower extremity swelling for the past week. Patient denies any chest pain or shortness of breath, patient does report compliance with prescribed medications. ER course was notable for: (1) ct of abd/pelvis with contrast: right paraesophageal mass/fluid collection, 2.2 x 2.7 x 3.1cm of unknown etiology (2) chest xray: no acute pathology (3) bnp [id number] Recent Travel: none PAST MEDICAL HISTORY: see hpi PAST SURGICAL HISTORY: see hpi Social History: retired, resides at home with Smoking:none Alcohol:none Drugs: none Family History: non contributory to this admission Allergies No Known Drug Allergies Allergy (Verified 02/01/18 09:39) HOME MEDICATIONS: Home Medications Medication Instructions Recorded Cholecalciferol (Vitamin D3) 1,000 unit PO BID 09/23/13 [Vitamin D] Lorazepam 0.5 mg PO 5XD 09/23/13 Niacin [Niaspan] 1,000 mg PO HS 09/23/13 Omeprazole [Prilosec (RX)] 20 mg PO DAILY 09/23/13 Potassium Chloride [Klor-Con 8] 8 meq PO TID 09/23/13 Simvastatin [Zocor -] 20 mg PO HS 09/23/13 Valsartan [Diovan] 160 mg PO DAILY 09/23/13 Apixaban [Eliquis -] 5 mg PO BID #60 tablet 02/02/18 Bupropion HCl [Wellbutrin -] 150 mg PO TID #90 tablet 02/04/18 Diltiazem Cd [Cardizem Cd -] 180 mg PO DAILY #30 cap.cd.24h 02/04/18 Chlorthalidone 25 mg PO DAILY 02/13/18 Fluticasone/Salmeterol [Advair Hfa 2 inh PO BID 02/13/18 45-21 Mcg Inhaler] REVIEW OF SYSTEMS CONSTITUTIONAL: Absent: fever, chills, diaphoresis, generalized weakness, malaise, loss of appetite, weight change HEENT: Absent: rhinorrhea, nasal congestion, throat pain, throat swelling, difficulty swallowing, mouth swelling, ear pain, eye pain, visual changes CARDIOVASCULAR: Absent: chest pain, syncope, palpitations, irregular heart rate, lightheadedness , peripheral edema RESPIRATORY: Absent: cough, shortness of breath, dyspnea with exertion, orthopnea, wheezing, stridor, hemoptysis GASTROINTESTINAL: Present: abdominal pain Absent: abdominal distension, nausea, vomiting, diarrhea, constipation, melena, hematochezia GENITOURINARY: Absent: dysuria, frequency, urgency, hesitancy, hematuria, flank pain, genital pain MUSCULOSKELETAL: Absent: myalgia, arthralgia, joint swelling, back pain, neck pain SKIN: Absent: rash, itching, pallor HEMATOLOGIC/IMMUNOLOGIC: Absent: easy bleeding, easy bruising, lymphadenopathy, frequent infections ENDOCRINE: Absent: unexplained weight gain, unexplained weight loss, heat intolerance, cold intolerance NEUROLOGIC: Absent: headache, focal weakness or paresthesias, dizziness, unsteady gait, seizure, mental status changes, bladder or bowel incontinence PSYCHIATRIC: Absent: anxiety, depression, suicidal or homicidal ideation, hallucinations. PHYSICAL EXAMINATION Vital Signs - 24 hr 02/13/18 02/13/18 02/14/18 19:19 21:05 01:36 Temperature 98.3 F Pulse Rate 82 98 H Pulse Rate [ 93 H Apical] Respiratory 18 20 17 Rate Blood Pressure 136/71 120/65 Blood Pressure 143/73 [Left Arm] O2 Sat by Pulse 99 95 97 Oximetry (%) 02/14/18 02/14/18 02:33 06:00 Temperature 98.0 F Pulse Rate 104 H Pulse Rate [ 100 H Apical] Respiratory 17 18 Rate Blood Pressure 126/72 Blood Pressure 111/65 [Left Arm] O2 Sat by Pulse 97 97 Oximetry (%) GENERAL: Awake, alert, and fully oriented, in no acute distress. HEAD: Normal with no signs of trauma. EYES: Pupils equal, round and reactive to light, extraocular movements intact, sclera anicteric, conjunctiva clear. No lid lag. EARS, NOSE, THROAT: Ears normal, nares patent, oropharynx clear without exudates. Moist mucous membranes. NECK: Normal range of motion, supple without lymphadenopathy, JVD, or masses. LUNGS: Breath sounds equal, clear to auscultation bilaterally. No wheezes, and no crackles. No accessory muscle use. HEART: irregular rate and rhythm, normal S1 and S2 without murmur, rub or gallop. ABDOMEN: Soft, + epigastric tenderness, not distended, normoactive bowel sounds , no guarding, no rebound, no masses. No hepatomegaly or splenomegaly. MUSCULOSKELETAL: Normal range of motion at all joints. No bony deformities or tenderness. No CVA tenderness. UPPER EXTREMITIES: 2+ pulses, warm, well-perfused. No cyanosis. No clubbing. No peripheral edema. LOWER EXTREMITIES: 2+ pulses, warm, well-perfused. No calf tenderness. + 1 bilateral edema. NEUROLOGICAL: Cranial nerves II-XII intact. Normal speech. Normal gait. PSYCHIATRIC: Cooperative. Good eye contact. Appropriate mood and affect. SKIN: Warm, dry, normal turgor, no rashes or lesions noted, normal capillary refill. Laboratory Results - last 24 hr 02/13/18 02/13/18 02/13/18 21:00 21:00 21:00 WBC 9.8 D RBC 3.74 L Hgb 11.0 L D Hct 33.1 L MCV 88.5 MCH 29.4 MCHC 33.2 RDW 12.3 Plt Count 365 D MPV 7.9 Neutrophils % 74.0 Lymphocytes % 10.8 D Monocytes % 7.7 Eosinophils % 4.2 Basophils % 3.3 H D PT with INR INR Sodium 130 L Potassium 4.1 D Chloride 99 Carbon Dioxide 24 Anion Gap 7 L BUN 14 Creatinine 1.0 Creat Clearance w eGFR > 60 Random Glucose 104 Calcium 8.7 Total Bilirubin < 0.5 D AST 18 D ALT 12 D Alkaline Phosphatase 49 Creatine Kinase 106 Troponin I < 0.03 B-Natriuretic Peptide Total Protein 6.5 Albumin 3.4 L Urine Color Urine Appearance Urine pH Ur Specific [place] Urine Protein Urine Glucose (UA) Urine Ketones Urine Blood Urine Nitrite Urine Bilirubin Urine Urobilinogen Ur Leukocyte Esterase 02/13/18 02/13/18 02/13/18 21:00 21:00 21:00 WBC RBC Hgb Hct MCV MCH MCHC RDW Plt Count MPV Neutrophils % Lymphocytes % Monocytes % Eosinophils % Basophils % PT with INR 15.0 H INR 1.35 H Sodium Potassium Chloride Carbon Dioxide Anion Gap BUN Creatinine Creat Clearance w eGFR Random Glucose Calcium Total Bilirubin AST ALT Alkaline Phosphatase Creatine Kinase Troponin I B-Natriuretic Peptide 1360.70 H Total Protein Albumin Urine Color Yellow Urine Appearance Clear Urine pH 7.0 Ur Specific [place] 1.020 Urine Protein Negative Urine Glucose (UA) Negative Urine Ketones Negative Urine Blood Negative Urine Nitrite Negative Urine Bilirubin Negative Urine Urobilinogen 0.2 Ur Leukocyte Esterase Negative ASSESSMENT/PLAN: 1) GI abdominal pain - ct of abd/pelvis, ?mass vs fluid collection, case discussed with Dr Bird GI will evaluate today - increase protonix to 40mg daily will add carafate - serial abdominal exams 2)cardiovascular afib - rate controlled, continue cardizem - continue eliquis lower extremity edema - no signs of fluid overload noted on exam, bnp 1360, decreased than prior admission this month, echo 02/05 reviewed, lv wnl, will defer lasix at this time - appreciate cardiology input hypertension - b/p at goal, continue valsartan 3) psych depression/anxiety - continue home medications wellbutrin and lorazapam 4) pulm copd - no acute excerbation at this time,continue albuterol nebulizer prn and symbicort (subsition for advair) f/e/n - clear liquid diet - replete lytes prn ppx - eliquis - protonix dispo: pt requires observation admission Visit type - Emergency Visit Emergency Visit: Yes ED Registration Date: 02/14/18 Care time: The patient presented to the Emergency Department on the above date and was hospitalized for further evaluation of their emergent condition. - New Patient This patient is new to me today: No - Critical Care Critical Care patient: No Hospitalist Screening - Colonoscopy Questionnaire Colonoscopy Questionnaire: Colonoscopy Questionnaire - Patient: 50 - 75 years old and never had a screening colonoscopy: Yes History of colon or rectal polyps, or CA: No History of IBD, Crohn's disease or UC: No History of abdominal radiation therapy as a child: No - Relative: 1 with colon or rectal CA, or polyps at age 60 or younger: No Colon or rectal CA diagnosed at age 45 or younger: No Multiple relatives with colon or rectal CA: No - Outcome: Screening Result: Positive Screen
[2018-02-14] MEDS ORDERED: ALBUTEROL SO4 0.083% IH SOL 2.5 MG/3 ML VIAL.NEB. NEB PRN (09:37)
[2018-02-14] MEDS ORDERED: PT OWN MED DRAWER 7, Y5N ONE ×3 (09:56→21:48)
[2018-02-14] MEDS ORDERED: PANTOPRAZOLE 20 MG TABLET (FP) PO SCH (10:00)
[2018-02-14] MEDS ORDERED: CHLORTHALIDONE 25 MG TABLET PO SCH (10:00)
[2018-02-14] MEDS: FLUTICASONE/SALMETEROL 100 MCG/50 MCG DISKUS IH SCH ×3 (10:07→22:00)
[2018-02-14] MEDS: PANTOPRAZOLE 40 MG TABLET (FP) PO SCH (10:11)
[2018-02-14] MEDS: CHOLECALCIFEROL (VITAMIN D3) 1,000 UNIT TABLET (FP) PO SCH ×2 (10:11→21:59)
[2018-02-14] MEDS: APIXABAN 5 MG TABLET PO SCH ×2 (10:11→22:00)
[2018-02-14] MEDS: VALSARTAN 160 MG TABLET (UD) PO SCH (10:12)
[2018-02-14] MEDS: SUCRALFATE 1 GM/10 ML UNIT DOSE CUPS PO SCH ×4 (10:31→21:59)
--- NOTE | 2018-02-14 11:18 | CON.CARD ---
Cardiology Consult (text) - Consultation Consultation Note: CC: new onset afib 72 yo with h/o recent diagnosis of afib s/p cataract removal this month, htn, hl , anxiety,depression, copd, and GERD who p/w abdominal pain. Endorses 3 months of dyspnea when bending over, abdominal distension and decreased appetite. yesterday with acute onset of severe abdominal pain. + h/ o heartburn, chronic + pain in legs after walking 3-[address] notable for paraesophageal fluid collection s/p 40 mg IV lasix x 1 and maintenance ivf at 50 cc/hr. Denies palps, dizziness, cp, sob, orthopnea, pnd, le edema, bleeding. He denies any recent fever, chills, sweats, n/v/d, headache, rashes, visual disturbances, cough, congestion. Functional status: sedentary, walks up flight of stairs to his home regularly without cardiac sx's. Walks up stairs slowly however due to poor balance (no h/ o falls). Otherwise sedentary. no h/o dm, cva, chf, cad. pmhx/pshx: per phi, cholecystectomy, shoulder surgery Social History: Former smoker. Drinks 2-3 glasses of wine daily with dinner. fam hx: no cardiac disease. ros: per hpi Ambulatory Orders Cholecalciferol (Vitamin D3) [Vitamin D] 1,000 unit PO BID 09/23/13 Lorazepam 0.5 mg PO 5XD 09/23/13 Niacin [Niaspan] 1,000 mg PO HS 09/23/13 Omeprazole [Prilosec (RX)] 20 mg PO DAILY 09/23/13 Potassium Chloride [Klor-Con 8] 8 meq PO TID 09/23/13 Simvastatin [Zocor -] 20 mg PO HS 09/23/13 Valsartan [Diovan] 160 mg PO DAILY 09/23/13 Apixaban [Eliquis -] 5 mg PO BID #60 tablet 02/02/18 Bupropion HCl [Wellbutrin -] 150 mg PO TID #90 tablet 02/04/18 Diltiazem Cd [Cardizem Cd -] 180 mg PO DAILY #30 cap.cd.24h 02/04/18 Chlorthalidone 25 mg PO DAILY 02/13/18 Fluticasone/Salmeterol [Advair Hfa 45-21 Mcg Inhaler] 2 inh PO BID 02/13/18 Current Medications Albuterol Sulfate (Ventolin 0.083% Nebulizer Soln -) 1 amp NEB Q4H PRN PRN Reason: SHORT OF BREATH/WHEEZING Apixaban (Eliquis -) 5 mg PO BID [facility] Last Admin: 02/14/18 10:11 Dose: 5 mg Atorvastatin Calcium (Lipitor -) 10 mg PO HS [facility] Bupropion HCl (Wellbutrin -) 150 mg PO TID [facility] Last Admin: 02/14/18 05:33 Dose: 150 mg Chlorthalidone (Hygroton -) 25 mg PO DAILY [facility] Last Admin: 02/14/18 10:11 Dose: 25 mg Cholecalciferol (Vitamin D3 -) 1,000 unit PO BID [facility] Last Admin: 02/14/18 10:11 Dose: 1,000 unit Diltiazem HCl (Cardizem Cd -) 180 mg PO DAILY [facility] Last Admin: 02/14/18 10:12 Dose: 180 mg Sodium Chloride (Normal Saline -) 1,000 mls @ 50 mls/hr IV ASDIR [facility] Stop: 02/15/18 04:45 Last Admin: 02/14/18 05:33 Dose: 50 mls/hr Lorazepam (Ativan -) 0.5 mg PO 5XD [facility] Last Admin: 02/14/18 10:14 Dose: 0.5 mg Non-Formulary Med ( (Niaspan 500mg)) 0 each PO [facility] Pantoprazole Sodium (Protonix -) 40 mg PO DAILY [facility] Last Admin: 02/14/18 10:11 Dose: 40 mg Fluticasone/Salmeterol (Advair 100mcg/50mcg -) 1 puff IH BID [facility] Last Admin: 02/14/18 10:16 Dose: Not Given Sucralfate (Carafate Oral Suspension -) 1 gm PO QID [facility] Last Admin: 02/14/18 10:31 Dose: 1 gm Valsartan (Diovan -) 160 mg PO DAILY [facility] Last Admin: 02/14/18 10:12 Dose: 160 mg Vital Signs - 24 hr 02/13/18 02/13/18 02/14/18 19:19 21:05 01:36 Temperature 98.3 F Pulse Rate 82 98 H Pulse Rate [ 93 H Apical] Respiratory 18 20 17 Rate Blood Pressure 136/71 120/65 Blood Pressure 143/73 [Left Arm] O2 Sat by Pulse 99 95 97 Oximetry (%) 02/14/18 02/14/18 02/14/18 02:33 06:00 10:00 Temperature 98.0 F 98.3 F Pulse Rate 104 H 92 H Pulse Rate [ 100 H Apical] Respiratory 17 18 18 Rate Blood Pressure 126/72 135/72 Blood Pressure 111/65 [Left Arm] O2 Sat by Pulse 97 97 Oximetry (%) Intake & Output 02/12/18 02/13/18 02/14/18 02/15/18 07:59 07:59 07:59 07:59 Intake Total 200 Output Total 750 Balance -550 Weight 130 lb 1.164 oz nad, calm jvd flat, neck supple ctab, nl effort irregularly irregular nl s1, s2 no mrg, nd pmi + bs soft nt nd, no hsm + dp/pt, no carotid bruits no le e/c/c aaox3 no jaundice, diaphoresis. CBC, BMP 02/14/18 07:30 02/14/18 07:30 Laboratory Tests 02/02/18 02/13/18 02/13/18 05:35 21:00 21:00 Creatinine 1.0 Creatine Kinase 106 Troponin I < 0.03 B-Natriuretic Peptide 3191.47 H 02/13/18 21:00 Creatinine Creatine Kinase Troponin I B-Natriuretic Peptide 1360.70 H ekg: aflutter, vr 88 bpm. lad, no ischemic ekg changes echo 01/2018: nl lv/rv, no sig valve path, nl rvsp abd ct 01/2018: rt basilar atelectasis with trace associated pleural effusion. paraesophageal fluid collection. see emr for detailed report ASSESSMENT/PLAN 72 yo with h/o recent diagnosis of afib s/p cataract removal this month, htn, hl , anxiety,depression, copd, and GERD who p/w abdominal pain. Pre-op clearance - Stable/asx from a CV perspective. no further testing needed prior to any surgical procedures/interventions. Based on rcri and functional status patient has a low estimated risk for cynthia-operative CV events. Patient counseled on risk. If there is a possibility that AC needs to be held for any procedures, can transition to lovenox or heparin drip. OK to hold AC entirely if needed. afib/aflutter - recent diagnosis this month post-op after cataract surgery. - echo wnl - cont ac as mentinoed above. - cont dilt 180 qd, currently rate controlled. htn - bp running low and npo. Also with worsened hyponatremia s/p lasix. Will hold chlorthalidone. con't diovan and diltiazem. hl - ok to hold statin during gi work up.
--- NOTE | 2018-02-14 12:38 | PN ---
Progress Note (short form) - Note Progress Note: Patient seen and chart reviewed including CT findings. Consult to be dictated. Patient currently with minimal abdominal discomfort; remains NPO. Has hx of GERD in past ?has been on antacid Rx ??Omeprazole as outpatient. Does occasionally c/o dysphagia to solids - ?intermittent In view of clinical history and CT finding of ?paraesophageal abnormality ? hiatal hernia; recommend: 1. Barium esophagram this pm 2. tentatively will schedule for EGD in am pending esophagram results Will follow
--- NOTE | 2018-02-14 16:41 | EKG ---
Test Reason : Blood Pressure : / mmHG Vent. Rate : 088 BPM Atrial Rate : 330 BPM P-R Int : 000 ms QRS Dur : 090 ms QT Int : 360 ms P-R-T Axes : 000 -31 005 degrees QTc Int : 435 ms Atrial fibrillation LEFT AXIS DEVIATION ABNORMAL ECG Confirmed by MD Hardin Edward ([id number]) on 02/14/2018 4:41:00 PM Referred By: SARIKA Confirmed By:Valdez Hardin MD
[2018-02-14] MEDS ORDERED: morphine SULFATE 4 MG/ML VIAL IVPUSH ONE ×2 (20:30)
[2018-02-14] MEDS: ATORVASTATIN CA 10 MG TABLET (FP) PO SCH (21:59)
[2018-02-14] MEDS ORDERED: NIACIN 500 MG TABLET PO SCH (22:00)
[2018-02-14] MEDS ORDERED: NIASPAN PO SCH (22:00)
[2018-02-14] MEDS: NIACIN 500 MG PO SCH (22:10)
[2018-02-15] MEDS ORDERED: PT OWN MED DRAWER 7, Y5N ONE ×3 (06:22→22:34)
[2018-02-15] MEDS: buPROPion HCL 75 MG TABLET PO SCH ×3 (06:23→22:02)
[2018-02-15] MEDS: LORazepam 0.5 MG TABLET PO SCH ×5 (06:24→22:22)
[2018-02-15] MEDS: SODIUM CHLORIDE 1,000 ML IV SCH (06:27)
--- NOTE | 2018-02-15 08:48 | PN ---
Physical Exam: SUBJECTIVE: Patient seen and examined, patient reports feeling well, awaiting esophgram today, unable to complete yesterday due to radiologist unavailability. OBJECTIVE: Patient is a 72 y/o male with as past medical history of anxiety, GERD, bilateral cataracts, depression, afib, and copd. Vital Signs Period Temp Pulse Resp BP Sys/Aguilar Pulse Ox Last 24 Hr 98.2 F-98.6 F 65-92 18-20 120-149/59-72 92-95 GENERAL: The patient is awake, alert, and fully oriented, in no acute distress. HEAD: Normal with no signs of trauma. EYES: PERRL, extraocular movements intact, sclera anicteric, conjunctiva clear. No ptosis. ENT: Ears normal, nares patent, oropharynx clear without exudates, moist mucous membranes. NECK: Trachea midline, full range of motion, supple. LUNGS: Breath sounds equal, clear to auscultation bilaterally, no wheezes, no crackles, no accessory muscle use. HEART: irregular rate and rhythm, S1, S2 without murmur, rub or gallop. ABDOMEN: Soft, nontender, nondistended, normoactive bowel sounds, no guarding, no rebound, no hepatosplenomegaly, no masses. EXTREMITIES: 2+ pulses, warm, well-perfused, no edema. NEUROLOGICAL: Cranial nerves II through XII grossly intact. Normal speech, gait not observed. PSYCH: Normal mood, normal affect. SKIN: Warm, dry, normal turgor, no rashes or lesions noted Laboratory Results - last 24 hr 02/14/18 02/14/18 02/14/18 07:30 07:30 07:30 WBC 10.2 RBC 3.62 L Hgb 10.8 L Hct 32.2 L MCV 89.1 MCH 29.7 MCHC 33.3 RDW 12.0 Plt Count 319 MPV 8.1 Sodium 128 L Potassium 3.9 Chloride 98 Carbon Dioxide 25 Anion Gap 5 L BUN 15 Creatinine 1.2 Random Glucose 106 Calcium 8.0 L Blood Type AB POSITIVE Antibody Screen Negative 02/14/18 07:34 WBC RBC Hgb Hct MCV MCH MCHC RDW Plt Count MPV Sodium Potassium Chloride Carbon Dioxide Anion Gap BUN Creatinine Random Glucose Calcium Blood Type AB POSITIVE Antibody Screen Active Medications Generic Name Dose Route Start Last Admin Trade Name Freq PRN Reason Stop Dose Admin Albuterol Sulfate 1 amp 02/14/18 09:37 Ventolin 0.083% Nebulizer Soln - NEB Q4H PRN SHORT OF BREATH/WHEEZING Apixaban 5 mg 02/14/18 10:00 02/14/18 22:00 Eliquis - PO 5 mg BID [facility] Administration Atorvastatin Calcium 10 mg 02/14/18 22:00 02/14/18 21:59 Lipitor - PO 10 mg HS [facility] Administration Bupropion HCl 150 mg 02/14/18 06:00 02/15/18 06:23 Wellbutrin - PO 150 mg TID [facility] Administration Cholecalciferol 1,000 unit 02/14/18 10:00 02/14/18 21:59 Vitamin D3 - PO 1,000 unit BID [facility] Administration Diltiazem HCl 180 mg 02/14/18 10:00 02/14/18 10:12 Cardizem Cd - PO 180 mg DAILY [facility] Administration Lorazepam 0.5 mg 02/14/18 06:00 02/15/18 06:24 Ativan - PO 0.5 mg 5XD [facility] Administration Non-Formulary Med ( 0 each 02/14/18 22:00 02/14/18 22:10 Niacin 500mg) PO 1,000 each HS [facility] Administration Pantoprazole Sodium 40 mg 02/14/18 10:00 02/14/18 10:11 Protonix - PO 40 mg DAILY [facility] Administration Fluticasone/Salmeterol 1 puff 02/14/18 10:00 02/14/18 22:00 Advair 100mcg/50mcg - IH Not Given BID [facility] Sucralfate 1 gm 02/14/18 10:30 02/14/18 21:59 Carafate Oral Suspension - PO 1 gm QID [facility] Administration Valsartan 160 mg 02/14/18 10:00 02/14/18 10:12 Diovan - PO 160 mg DAILY [facility] Administration IMAGING ct of abd/pelvis, ?mass vs fluid collection echo 02/05 reviewed, lv wnl ASSESSMENT/PLAN: 1) GI abdominal pain - pending esophogram today - protonix to 40mg daily and carafate - serial abdominal exams 2)cardiovascular afib - rate controlled, continue cardizem - continue eliquis lower extremity edema - no signs of fluid overload noted on exam continue to defer to lasix - cardiology consulted and following input hypertension - b/p at goal, continue valsartan 3) psych depression/anxiety - continue home medications wellbutrin and lorazapam 4) pulm copd - no acute excerbation at this time,continue albuterol nebulizer prn and symbicort (subsition for advair) f/e/n - clear liquid diet - replete lytes prn ppx - eliquis - protonix dispo: pt requires observation admission Visit type - Emergency Visit Emergency Visit: Yes ED Registration Date: 02/14/18 Care time: The patient presented to the Emergency Department on the above date and was hospitalized for further evaluation of their emergent condition. - New Patient This patient is new to me today: No - Critical Care Critical Care patient: No - Discharge Referral Referred to [facility] Med P.C.: No
[2018-02-15 09:05] LABS: BASO % 0.7 % (0-2.0); EOS % 3.3 % (0-4.5); HEMATOCRIT 32.1 % (35.4-49); HEMOGLOBIN 10.6 GM/dl (11.7-16.9); LYMPH % 13.2 % (8-40); MCH 29.3 pg (25.7-33.7); MCHC 32.9 g/dl (32.0-35.9); MEAN CELL VOLUME 89.1 fl (80-96); MEAN PLT VOLUME 7.8 fl (7.5-11.1); MONO % 16.1 % (3.8-10.2); NEUT % 66.7 % (42.8-82.8); PLATELET COUNT 276 K/MM3 (134-434); RBC 3.61 M/mm3 (4.00-5.60); WHITE BLOOD COUNT 5.3 K/mm3 (4.0-10.8)
[2018-02-15 09:23] LABS: ALBUMIN 2.8 g/dl (3.5-5.0); ALK PHOS 41 U/L (32-92); ANION GAP 6 (8-16); BILIRUBIN,TOTAL 0.3 mg/dl (0.2-1.0); BLOOD UREA NITROGEN 12 mg/dl (7-18); CALCIUM 8.2 mg/dl (8.4-10.2); CHLORIDE 98 mmol/L (98-107); CO2 27 mmol/L (22-28); GLUCOSE,RANDOM 109 mg/dl (74-106); MAGNESIUM 1.4 mg/dL (1.8-2.4); PHOSPHOROUS 2.9 mg/dl (2.5-4.6); POTASSIUM 3.9 mmol/L (3.5-5.1); SGOT/AST 17 U/L (10-42); SGPT/ALT 12 U/L (10-40); SODIUM 131 mmol/L (136-145); TOT PROT 5.8 g/dl (6.4-8.3)
[2018-02-15] MEDS ORDERED: MAGNESIUM SULFATE 2 GM in SODIUM CHLORIDE 100 ML IVPB ONE (09:54)
[2018-02-15] MEDS: APIXABAN 5 MG TABLET PO SCH ×2 (09:55→22:22)
[2018-02-15] MEDS: PANTOPRAZOLE 40 MG TABLET (FP) PO SCH (09:55)
[2018-02-15] MEDS: VALSARTAN 160 MG TABLET (UD) PO SCH (09:55)
[2018-02-15] MEDS: CHOLECALCIFEROL (VITAMIN D3) 1,000 UNIT TABLET (FP) PO SCH ×2 (09:55→22:22)
[2018-02-15] MEDS: SUCRALFATE 1 GM/10 ML UNIT DOSE CUPS PO SCH ×4 (09:55→22:22)
[2018-02-15] MEDS: FLUTICASONE/SALMETEROL 100 MCG/50 MCG DISKUS IH SCH ×2 (09:55→23:03)
[2018-02-15] MEDS ORDERED: MAGNESIUM SULFATE IN WATER 2 GM/50 ML IVPB IVPB ONE (10:00)
--- NOTE | 2018-02-15 16:30 | PN ---
Progress Note (short form) - Note Progress Note: CC: new onset afib S: no cp, palps, dizziness, sob. had esophagram today. Is taking in clears. hypernatremia improving. Current Medications Albuterol Sulfate (Ventolin 0.083% Nebulizer Soln -) 1 amp NEB Q4H PRN PRN Reason: SHORT OF BREATH/WHEEZING Apixaban (Eliquis -) 5 mg PO BID [facility] Last Admin: 02/15/18 09:55 Dose: 5 mg Atorvastatin Calcium (Lipitor -) 10 mg PO HS [facility] Last Admin: 02/14/18 21:59 Dose: 10 mg Bupropion HCl (Wellbutrin -) 150 mg PO TID [facility] Last Admin: 02/15/18 13:10 Dose: 150 mg Cholecalciferol (Vitamin D3 -) 1,000 unit PO BID [facility] Last Admin: 02/15/18 09:55 Dose: 1,000 unit Diltiazem HCl (Cardizem Cd -) 180 mg PO DAILY [facility] Last Admin: 02/15/18 09:55 Dose: 180 mg Lorazepam (Ativan -) 0.5 mg PO 5XD [facility] Last Admin: 02/15/18 13:10 Dose: 0.5 mg Non-Formulary Med ( (Niacin 500mg)) 0 each PO HS [facility] Last Admin: 02/14/18 22:10 Dose: 1,000 each Pantoprazole Sodium (Protonix -) 40 mg PO DAILY [facility] Last Admin: 02/15/18 09:55 Dose: 40 mg Fluticasone/Salmeterol (Advair 100mcg/50mcg -) 1 puff IH BID [facility] Last Admin: 02/15/18 09:55 Dose: Not Given Sucralfate (Carafate Oral Suspension -) 1 gm PO QID [facility] Last Admin: 02/15/18 13:10 Dose: 1 gm Valsartan (Diovan -) 160 mg PO DAILY [facility] Last Admin: 02/15/18 09:55 Dose: 160 mg Vital Signs - 24 hr 02/14/18 02/14/18 02/15/18 20:00 22:30 06:00 Temperature 98.6 F 98.4 F 98.6 F Pulse Rate 65 85 86 Respiratory 18 18 20 Rate Blood Pressure 149/66 125/59 136/68 O2 Sat by Pulse 94 L 92 L Oximetry (%) 02/15/18 02/15/18 09:46 14:11 Temperature 98.1 F 98.7 F Pulse Rate 94 H 90 Respiratory 18 18 Rate Blood Pressure 150/78 131/70 O2 Sat by Pulse 95 Oximetry (%) Intake & Output 02/13/18 02/14/18 02/15/18 02/16/18 07:59 07:59 07:59 07:59 Intake Total 200 1075 Output Total 750 Balance -550 1075 Weight 130 lb 1.164 oz nad, calm jvd flat, neck supple ctab, nl effort irregularly irregular nl s1, s2 no mrg, nd pmi + bs soft nt nd, no hsm + dp/pt, no carotid bruits no le e/c/c aaox3 no jaundice, diaphoresis. CBC, BMP 02/15/18 08:30 02/15/18 08:30 Laboratory Tests 02/15/18 08:30 Magnesium 1.4 L D Albumin 2.8 L ekg: aflutter, vr 88 bpm. lad, no ischemic ekg changes echo 01/2018: nl lv/rv, no sig valve path, nl rvsp abd ct 01/2018: rt basilar atelectasis with trace associated pleural effusion. paraesophageal fluid collection. see emr for detailed report ASSESSMENT/PLAN 72 yo with h/o recent diagnosis of afib s/p cataract removal this month, htn, hl , anxiety,depression, copd, and GERD who p/w abdominal pain. Pre-op clearance/abdominal pain - Possible paraesophageal fluid collection. GI work up ongoing. - Stable/asx from a CV perspective. no further testing needed prior to any surgical procedures/interventions. Based on rcri and functional status patient has a low estimated risk for cynthia-operative CV events. Patient counseled on risk. - If there is a possibility that AC needs to be held for any procedures, can transition to lovenox or heparin drip. OK to hold AC entirely if needed. afib/aflutter - recent diagnosis this month post-op after cataract surgery. - echo wnl - cont ac as mentioned above. - cont dilt 180 qd, currently rate controlled. htn - With worsened hyponatremia s/p lasix. Will hold chlorthalidone while patient intermittently on clears or npo. No longer getting maintenance IVF (50cc/hr). - con't diovan and diltiazem. hl - con't statin. copd - no acute exacerbation. con't home inhalers.
[2018-02-15] MEDS: ATORVASTATIN CA 10 MG TABLET (FP) PO SCH (22:22)
[2018-02-15] MEDS: NIACIN 500 MG PO SCH (22:26)
[2018-02-16] MEDS: LORazepam 0.5 MG TABLET PO SCH ×5 (05:37→22:46)
[2018-02-16] MEDS: buPROPion HCL 75 MG TABLET PO SCH ×3 (05:37→22:46)
[2018-02-16] MEDS ORDERED: PROPOFOL 20 ML ONE (07:17)
[2018-02-16] MEDS ORDERED: LIDOCAINE HCL/PF 2% SDV 5ML VIAL ONE (07:17)
[2018-02-16 09:17] LABS: ALBUMIN 2.8 g/dl (3.5-5.0); ALK PHOS 41 U/L (32-92); ANION GAP 11 (8-16); BASO % 0.5 % (0-2.0); BLOOD UREA NITROGEN 7 mg/dl (7-18); CALCIUM 8.3 mg/dl (8.4-10.2); CHLORIDE 96 mmol/L (98-107); CO2 22 mmol/L (22-28); GLUCOSE,RANDOM 110 mg/dl (74-106); HEMATOCRIT 33.8 % (35.4-49); HEMOGLOBIN 11.4 GM/dl (11.7-16.9); LYMPH % 13.7 % (8-40); MAGNESIUM 1.6 mg/dL (1.8-2.4); MCH 29.7 pg (25.7-33.7); MCHC 33.6 g/dl (32.0-35.9); MEAN CELL VOLUME 88.5 fl (80-96); MEAN PLT VOLUME 7.8 fl (7.5-11.1); MONO % 15.9 % (3.8-10.2); NEUT % 67.9 % (42.8-82.8); PLATELET COUNT 294 K/MM3 (134-434); POTASSIUM 3.4 mmol/L (3.5-5.1); RBC 3.82 M/mm3 (4.00-5.60); RDW 12.3 % (11.9-15.9); SGOT/AST 18 U/L (10-42); SGPT/ALT 15 U/L (10-40); SODIUM 129 mmol/L (136-145); WHITE BLOOD COUNT 6.4 K/mm3 (4.0-10.8)
[2018-02-16 09:23] LABS: BILIRUBIN,TOTAL < 0.5 mg/dl (0.2-1.0)
[2018-02-16] MEDS ORDERED: dilTIAZem HCL 50 MG/10 ML - 10 ML VIAL ONE (09:39)
[2018-02-16] MEDS ORDERED: MAGNESIUM SULFATE 2 GM in SODIUM CHLORIDE 100 ML IVPB ONE (09:45)
[2018-02-16] MEDS ORDERED: dilTIAZem HCL 50 MG/10 ML - 10 ML VIAL IVPUSH ONE (10:00)
[2018-02-16] MEDS ORDERED: MAGNESIUM SULFATE IN WATER 2 GM/50 ML IVPB IVPB ONE (10:00)
[2018-02-16] MEDS ORDERED: POTASSIUM CHLORIDE TABS 20 MEQ TABLET.ER (FP) PO ONE (10:00)
--- NOTE | 2018-02-16 10:10 | PN ---
Progress Note (short form) - Note Progress Note: Barium esophagram reviewed; no evidence of stricture/mass. Patient relatively asymptomatic with decreased epigastric c/o. On PPI daily and tolerating PO. EGD planned for this am cancelled in view of serum Na= 129 (per Anesthesia) VSS Abdomen soft +BS nontender Would continue on PPI daily and arrange for outpatient followup. If UGI symptoms recur, can arrange for EGD as outpt.
[2018-02-16] MEDS: PANTOPRAZOLE 40 MG TABLET (FP) PO SCH (11:00)
[2018-02-16] MEDS: FLUTICASONE/SALMETEROL 100 MCG/50 MCG DISKUS IH SCH ×2 (11:00→22:47)
[2018-02-16] MEDS: CHOLECALCIFEROL (VITAMIN D3) 1,000 UNIT TABLET (FP) PO SCH ×2 (11:10→22:46)
[2018-02-16] MEDS: VALSARTAN 160 MG TABLET (UD) PO SCH (11:10)
[2018-02-16] MEDS: SUCRALFATE 1 GM/10 ML UNIT DOSE CUPS PO SCH ×4 (11:10→22:47)
[2018-02-16] MEDS: APIXABAN 5 MG TABLET PO SCH ×2 (11:15→22:47)
[2018-02-16] MEDS ORDERED: PT OWN MED DRAWER 7, Y5N ONE ×2 (12:05→13:37)
--- NOTE | 2018-02-16 12:32 | PN ---
Physical Exam: SUBJECTIVE: Patient seen and examined, reports feeling bloated, endscopy was cancelled due to hyponatremia OBJECTIVE: Patient is a 72 y/o male with as past medical history of anxiety, GERD, bilateral cataracts, depression, afib, and copd. patient was admitted from the emergency department to observation for emergent condition. Vital Signs Period Temp Pulse Resp BP Sys/Aguilar Pulse Ox Last 24 Hr 98.4 F-99.4 F 70-92 18-20 126-141/55-88 95-96 GENERAL: The patient is awake, alert, and fully oriented, in no acute distress. HEAD: Normal with no signs of trauma. EYES: PERRL, extraocular movements intact, sclera anicteric, conjunctiva clear. No ptosis. ENT: Ears normal, nares patent, oropharynx clear without exudates, moist mucous membranes. NECK: Trachea midline, full range of motion, supple. LUNGS: Breath sounds equal, clear to auscultation bilaterally, no wheezes, no crackles, no accessory muscle use. HEART: irregular rate and rhythm, S1, S2 without murmur, rub or gallop. ABDOMEN: Soft, nontender, nondistended, normoactive bowel sounds, no guarding, no rebound, no hepatosplenomegaly, no masses. EXTREMITIES: 2+ pulses, warm, well-perfused, no edema. NEUROLOGICAL: Cranial nerves II through XII grossly intact. Normal speech, gait not observed. PSYCH: Normal mood, normal affect. SKIN: Warm, dry, normal turgor, no rashes or lesions noted Laboratory Results - last 24 hr 02/16/18 02/16/18 07:30 07:30 WBC 6.4 RBC 3.82 L Hgb 11.4 L Hct 33.8 L MCV 88.5 MCH 29.7 MCHC 33.6 RDW 12.3 Plt Count 294 MPV 7.8 Neutrophils % 67.9 Lymphocytes % 13.7 Monocytes % 15.9 H Eosinophils % 2.0 Basophils % 0.5 Sodium 129 L Potassium 3.4 L Chloride 96 L Carbon Dioxide 22 Anion Gap 11 BUN 7 D Creatinine 1.0 Creat Clearance w eGFR > 60 Random Glucose 110 H Calcium 8.3 L Phosphorus 3.0 Magnesium 1.6 L Total Bilirubin < 0.5 D AST 18 ALT 15 D Alkaline Phosphatase 41 Total Protein 6.0 L Albumin 2.8 L Active Medications Generic Name Dose Route Start Last Admin Trade Name Freq PRN Reason Stop Dose Admin Albuterol Sulfate 1 amp 02/14/18 09:37 Ventolin 0.083% Nebulizer Soln - NEB Q4H PRN SHORT OF BREATH/WHEEZING Apixaban 5 mg 02/14/18 10:00 02/15/18 22:22 Eliquis - PO 5 mg BID [facility] Administration Atorvastatin Calcium 10 mg 02/14/18 22:00 02/15/18 22:22 Lipitor - PO 10 mg HS [facility] Administration Bupropion HCl 150 mg 02/14/18 06:00 02/16/18 05:37 Wellbutrin - PO Not Given TID [facility] Cholecalciferol 1,000 unit 02/14/18 10:00 02/15/18 22:22 Vitamin D3 - PO 1,000 unit BID [facility] Administration Diltiazem HCl 180 mg 02/14/18 10:00 02/15/18 09:55 Cardizem Cd - PO 180 mg DAILY [facility] Administration Lorazepam 0.5 mg 02/14/18 06:00 02/16/18 05:37 Ativan - PO Not Given 5XD [facility] Non-Formulary Med ( 0 each 02/14/18 22:00 02/15/18 22:26 Niacin 500mg) PO 1,000 each HS [facility] Administration Pantoprazole Sodium 40 mg 02/14/18 10:00 02/15/18 09:55 Protonix - PO 40 mg DAILY [facility] Administration Fluticasone/Salmeterol 1 puff 02/14/18 10:00 02/15/18 23:03 Advair 100mcg/50mcg - IH Not Given BID [facility] Sucralfate 1 gm 02/14/18 10:30 02/15/18 22:22 Carafate Oral Suspension - PO 1 gm QID [facility] Administration Valsartan 160 mg 02/14/18 10:00 02/15/18 09:55 Diovan - PO 160 mg DAILY [facility] Administration IMAGING ct of abd/pelvis, ?mass vs fluid collection echo 02/05 reviewed, lv wnl espohogram: prominent crichopharyneal muscle normal esophogram ASSESSMENT/PLAN: 1) GI abdominal pain resolved GERD - continue protonix 40mg daily and carafate - serial abdominal exams - discussed with Dr Bird, patient can complete EGD as outpatient 2)cardiovascular afib - patient noted to be in rapid afib rate 120's, pt was npo in am, cardizem 5mg IV x 1, followed by home dose cardizem, rate now better controlled 90's, continuos telemetry monitoring - continue eliquis lower extremity edema - no signs of fluid overload noted on exam continue to defer to lasix - cardiology consulted and following input hypertension - b/p at goal, continue valsartan 3) psych depression/anxiety - continue home medications wellbutrin and lorazapam 4) pulm copd - no acute excerbation at this time,continue albuterol nebulizer prn and symbicort (subsition for advair) f/e/n hyponatremia -secondary to cholorithadone, continue to hold, strict monitoring of serum sodium - regular diet - replete lytes prn ppx - eliquis - protonix - physical therapy evaluation dispo: pt requires observation admission Visit type - Emergency Visit Emergency Visit: Yes ED Registration Date: 02/14/18 Care time: The patient presented to the Emergency Department on the above date and was hospitalized for further evaluation of their emergent condition. - New Patient This patient is new to me today: No - Critical Care Critical Care patient: No - Discharge Referral Referred to [facility] Med P.C.: No
[2018-02-16] MEDS ORDERED: MAGNESIUM SULF 50% (8.12 MEQ/2 ML-1 GM VIAL) ONE (14:05)
[2018-02-16 19:11] LABS: ANION GAP 10 (8-16); BLOOD UREA NITROGEN 9 mg/dl (7-18); CALCIUM 8.4 mg/dl (8.4-10.2); CHLORIDE 93 mmol/L (98-107); CO2 23 mmol/L (22-28); CREATININE 1.1 mg/dl (0.6-1.3); GLUCOSE,RANDOM 154 mg/dl (74-106); POTASSIUM 3.8 mmol/L (3.5-5.1); SODIUM 126 mmol/L (136-145)
[2018-02-16] MEDS ORDERED: NAPROXEN 500 MG TABLET (FP) PO ONE (19:25)
[2018-02-16 20:09] LABS: BASO % 0.2 % (0-2.0); EOS % 0.4 % (0-4.5); HEMATOCRIT 35.2 % (35.4-49); HEMOGLOBIN 11.9 GM/dl (11.7-16.9); LYMPH % 7.2 % (8-40); MCH 29.7 pg (25.7-33.7); MCHC 33.9 g/dl (32.0-35.9); MEAN CELL VOLUME 87.7 fl (80-96); MEAN PLT VOLUME 7.8 fl (7.5-11.1); MONO % 2.9 % (3.8-10.2); NEUT % 89.3 % (42.8-82.8); PLATELET COUNT 311 K/MM3 (134-434); RBC 4.02 M/mm3 (4.00-5.60); RDW 11.8 % (11.9-15.9); WHITE BLOOD COUNT 7.7 K/mm3 (4.0-10.8)
[2018-02-16 20:20] LABS: ALK PHOS 46 U/L (32-92); ANION GAP 10 (8-16); BLOOD UREA NITROGEN 9 mg/dl (7-18); CALCIUM 8.4 mg/dl (8.4-10.2); CHLORIDE 93 mmol/L (98-107); CO2 23 mmol/L (22-28); CREATININE 0.9 mg/dl (0.6-1.3); GLUCOSE,RANDOM 105 mg/dl (74-106); MAGNESIUM 1.4 mg/dL (1.8-2.4); POTASSIUM 3.9 mmol/L (3.5-5.1); SGOT/AST 22 U/L (10-42); SGPT/ALT 12 U/L (10-40); SODIUM 126 mmol/L (136-145); TOT PROT 6.6 g/dl (6.4-8.3)
[2018-02-16 20:58] LABS: BILIRUBIN,TOTAL 0.2 mg/dl (0.2-1.0)
[2018-02-16] MEDS: ATORVASTATIN CA 10 MG TABLET (FP) PO SCH (22:46)
[2018-02-16] MEDS: NIACIN 500 MG PO SCH (22:48)
[2018-02-16] MEDS ORDERED: MAGNESIUM HYDROX 2400MG/30ML ORAL SUSPENSION 30 ML CUP PO ONE (23:32)
[2018-02-16] MEDS ORDERED: MAGNESIUM SULF 50% (8.12 MEQ/2 ML-1 GM VIAL) IVPB ONE (23:39)
[2018-02-17] MEDS: dilTIAZem HCL 60 MG TABLET (FP) PO SCH ×4 (00:28→17:42)
[2018-02-17] MEDS: buPROPion HCL 75 MG TABLET PO SCH ×3 (05:37→21:31)
[2018-02-17] MEDS: LORazepam 0.5 MG TABLET PO SCH ×5 (05:37→21:31)
--- NOTE | 2018-02-17 08:16 | PN ---
Progress Note (short form) - Note Progress Note: CC: new onset afib S: patient had egd deferred this morning because had brief episode of rvr ( responded to iv dilt). Late this evening had episode of fever and acute onset of sob which improved s/p nebulizer treatment. still with poor po intake. sodium trending down. - family states patient may be slightly more confused/not himself this evening. states patient is constipated. states patient is having intermittent dysphagia. mild rlq tenderness per patient, otherwise no abdominal pain. + diaphoresis and chills in setting of fever. no cp, palps, dizziness, Current Medications Albuterol Sulfate (Ventolin 0.083% Nebulizer Soln -) 1 amp NEB Q4H PRN PRN Reason: SHORT OF BREATH/WHEEZING Apixaban (Eliquis -) 5 mg PO BID [facility] Last Admin: 02/15/18 09:55 Dose: 5 mg Atorvastatin Calcium (Lipitor -) 10 mg PO [facility] Last Admin: 02/14/18 21:59 Dose: 10 mg Bupropion HCl (Wellbutrin -) 150 mg PO TID [facility] Last Admin: 02/15/18 13:10 Dose: 150 mg Cholecalciferol (Vitamin D3 -) 1,000 unit PO BID [facility] Last Admin: 02/15/18 09:55 Dose: 1,000 unit Diltiazem HCl (Cardizem Cd -) 180 mg PO DAILY [facility] Last Admin: 02/15/18 09:55 Dose: 180 mg Lorazepam (Ativan -) 0.5 mg PO 5XD [facility] Last Admin: 02/15/18 13:10 Dose: 0.5 mg Non-Formulary Med ( (Niacin 500mg)) 0 each PO [facility] Last Admin: 02/14/18 22:10 Dose: 1,000 each Pantoprazole Sodium (Protonix -) 40 mg PO DAILY [facility] [place] Last Admin: 02/15/18 09:55 Dose: 40 mg Fluticasone/Salmeterol (Advair 100mcg/50mcg -) 1 puff IH BID [facility] [place] Last Admin: 02/15/18 09:55 Dose: Not Given Sucralfate (Carafate Oral Suspension -) 1 gm PO QID [facility] Last Admin: 02/15/18 13:10 Dose: 1 gm Valsartan (Diovan -) 160 mg PO DAILY [facility] Last Admin: 02/15/18 09:55 Dose: 160 mg Vital Signs - 24 hr 02/16/18 02/16/18 02/16/18 10:00 14:00 22:00 Temperature 98.2 F 98.7 F Pulse Rate 93 H 92 H Respiratory 18 18 Rate Blood Pressure 134/72 128/53 O2 Sat by Pulse 95 100 100 Oximetry (%) 02/17/18 05:47 Temperature 97.8 F Pulse Rate 70 Respiratory 18 Rate Blood Pressure 109/59 O2 Sat by Pulse 97 Oximetry (%) Intake & Output 02/15/18 02/16/18 07:59 07:59 Intake Total 1075 1350 Output Total Balance 1075 1350 Weight 131 lb 0.4 oz nad, calm jvd flat, neck supple slight diminished air movement, nl effort irregularly irregular nl s1, s2 no mrg, nd pmi + bs soft nt nd, no hsm + dp/pt, no carotid bruits no le e/c/c aaox3 no jaundice, + diaphoresis. Laboratory Tests 02/16/18 02/16/18 02/16/18 07:30 18:00 19:30 Hgb 11.9 Sodium 129 L 126 L Potassium Creatinine Lactic Acid Magnesium Albumin 02/16/18 02/16/18 19:30 19:30 Hgb Sodium 126 L Potassium 3.9 Creatinine 0.9 Lactic Acid 3.3 H* Magnesium 1.4 L Albumin 3.0 L ekg: aflutter, vr 88 bpm. lad, no ischemic ekg changes tele: afib, overall rate controlled with occasional rvr to 110's-120's echo 01/2018: nl lv/rv, no sig valve path, nl rvsp abd ct 01/2018: rt basilar atelectasis with trace associated pleural effusion. paraesophageal fluid collection. see emr for detailed report repeat cxr 02/16: report pending, no obvious pulmonary edema. elevated right hemidiaphragm obscures right base. ASSESSMENT/PLAN 72 yo with h/o recent diagnosis of afib s/p cataract removal this month, htn, hl , anxiety,depression, copd, and GERD who p/w abdominal pain. Pre-op clearance/abdominal pain - Possible paraesophageal fluid collection. GI work up ongoing. - Stable/asx from a CV perspective. no further testing needed prior to any surgical procedures/interventions. Based on rcri and functional status patient has a low estimated risk for cynthia-operative CV events. Patient counseled on risk. - If there is a possibility that AC needs to be held for any procedures, can transition to lovenox or heparin drip. OK to hold AC entirely if needed. afib/aflutter - recent diagnosis this month post-op after cataract surgery. - echo wnl - cont ac as mentioned above. - 02/16 episode of rvr today, likely in setting of brewing infection. (developed fever later in day). will uptitrate diltiazem but as short acting (in case bp drops). change to diltiazem 60 po q6h tonight. Lytes remain low. mg 1.4. repletion ongoing. worsening hyponatremia - in past hyponatremia has improved off of diuretics. weight not increasing, no signs of volume overload so low suspicion that patient needs diuresis ( episode of sob does not seem to be related pulmonary edema) Repeat cxr in am as pa/lateral to confirm. - consider consulting renal to help guide management. htn - With worsened hyponatremia s/p lasix. Will hold chlorthalidone while patient intermittently on clears or npo. - con't diovan and diltiazem. hl - con't statin. copd - no acute exacerbation. con't home inhalers.
[2018-02-17 08:43] LABS: BASO % 0.7 % (0-2.0); EOS % 2.3 % (0-4.5); HEMATOCRIT 32.7 % (35.4-49); HEMOGLOBIN 10.8 GM/dl (11.7-16.9); LYMPH % 10.2 % (8-40); MCH 29.3 pg (25.7-33.7); MEAN PLT VOLUME 7.8 fl (7.5-11.1); MONO % 17.2 % (3.8-10.2); NEUT % 69.6 % (42.8-82.8); PLATELET COUNT 281 K/MM3 (134-434); RBC 3.68 M/mm3 (4.00-5.60); WHITE BLOOD COUNT 6.4 K/mm3 (4.0-10.8)
[2018-02-17 09:14] LABS: ANION GAP 7 (8-16); BLOOD UREA NITROGEN 8 mg/dl (7-18); CALCIUM 8.2 mg/dl (8.4-10.2); CHLORIDE 98 mmol/L (98-107); CO2 26 mmol/L (22-28); CREATININE 0.9 mg/dl (0.6-1.3); GLUCOSE,RANDOM 114 mg/dl (74-106); MAGNESIUM 2.3 mg/dL (1.8-2.4); PHOSPHOROUS 2.7 mg/dl (2.5-4.6); POTASSIUM 3.5 mmol/L (3.5-5.1); SODIUM 131 mmol/L (136-145)
[2018-02-17] MEDS: APIXABAN 5 MG TABLET PO SCH ×2 (10:19→21:33)
[2018-02-17] MEDS: SUCRALFATE 1 GM/10 ML UNIT DOSE CUPS PO SCH ×4 (10:19→21:33)
[2018-02-17] MEDS: CHOLECALCIFEROL (VITAMIN D3) 1,000 UNIT TABLET (FP) PO SCH ×2 (10:20→21:30)
[2018-02-17] MEDS: PANTOPRAZOLE 40 MG TABLET (FP) PO SCH (10:20)
[2018-02-17] MEDS: VALSARTAN 160 MG TABLET (UD) PO SCH (10:20)
[2018-02-17] MEDS: FLUTICASONE/SALMETEROL 100 MCG/50 MCG DISKUS IH SCH ×2 (10:22→21:33)
[2018-02-17] MEDS ORDERED: PT OWN MED DRAWER 7, Y5N ONE ×2 (14:05→21:13)
--- NOTE | 2018-02-17 14:12 | PN ---
Physical Exam: SUBJECTIVE: Patient seen and examined. Patient is a 72 y/o male with as past medical history of anxiety, GERD, bilateral cataracts, depression, afib, and copd. patient was admitted for care and treatment of a finding of hyponatremia prior to endoscopy and it was canceled but pt developed fever, elevated LA last evening which returned to normal today. OBJECTIVE: Vital Signs Period Temp Pulse Resp BP Sys/Aguilar Pulse Ox Last 24 Hr 97.6 F-98.7 F 70-92 18-19 109-128/53-59 97-100 GENERAL: The patient is awake, alert, and fully oriented, in no acute distress. HEAD: Normal with no signs of trauma. EYES: PERRL, extraocular movements intact, sclera anicteric, conjunctiva clear. No ptosis. ENT: Ears normal, nares patent, oropharynx clear without exudates, moist mucous membranes. NECK: Trachea midline, full range of motion, supple. LUNGS: Breath sounds equal, clear to auscultation bilaterally, no wheezes, no crackles, no accessory muscle use. HEART: Regular rate and rhythm, S1, S2 without murmur, rub or gallop. ABDOMEN: Soft, nontender, nondistended, normoactive bowel sounds, no guarding, no rebound, no hepatosplenomegaly, no masses. EXTREMITIES: 2+ pulses, warm, well-perfused, no edema. NEUROLOGICAL: Cranial nerves II through XII grossly intact. Normal speech, gait not observed. PSYCH: Normal mood, normal affect. SKIN: Warm, dry, normal turgor, no rashes or lesions noted Laboratory Results - last 24 hr 02/16/18 02/16/18 02/16/18 18:00 19:30 19:30 WBC 7.7 RBC 4.02 Hgb 11.9 Hct 35.2 L MCV 87.7 MCH 29.7 MCHC 33.9 RDW 11.8 L Plt Count 311 MPV 7.8 Neutrophils % 89.3 H D Lymphocytes % 7.2 L D Monocytes % 2.9 L D Eosinophils % 0.4 Basophils % 0.2 Sodium 126 L 126 L Potassium 3.8 3.9 Chloride 93 L 93 L Carbon Dioxide 23 23 Anion Gap 10 10 BUN 9 D 9 Creatinine 1.1 0.9 Creat Clearance w eGFR > 60 Random Glucose 154 H D 105 D Lactic Acid Calcium 8.4 8.4 Phosphorus Magnesium 1.4 L Total Bilirubin 0.2 D AST 22 D ALT 12 Alkaline Phosphatase 46 Creatine Kinase Troponin I Total Protein 6.6 Albumin 3.0 L 02/16/18 02/17/18 02/17/18 19:30 07:50 07:50 WBC 6.4 RBC 3.68 L Hgb 10.8 L Hct 32.7 L MCV 89.0 MCH 29.3 MCHC 33.0 RDW 12.0 Plt Count 281 MPV 7.8 Neutrophils % 69.6 D Lymphocytes % 10.2 D Monocytes % 17.2 H D Eosinophils % 2.3 D Basophils % 0.7 D Sodium 131 L Potassium 3.5 Chloride 98 Carbon Dioxide 26 Anion Gap 7 L BUN 8 Creatinine 0.9 Creat Clearance w eGFR Random Glucose 114 H Lactic Acid 3.3 H* 1.2 Calcium 8.2 L Phosphorus 2.7 Magnesium 2.3 D Total Bilirubin AST ALT Alkaline Phosphatase Creatine Kinase Troponin I Total Protein Albumin 02/17/18 02/17/18 02/17/18 07:50 07:50 12:10 WBC RBC Hgb Hct MCV MCH MCHC RDW Plt Count MPV Neutrophils % Lymphocytes % Monocytes % Eosinophils % Basophils % Sodium Potassium Chloride Carbon Dioxide Anion Gap BUN Creatinine Creat Clearance w eGFR Random Glucose Lactic Acid 1.2 Calcium Phosphorus Magnesium Total Bilirubin AST ALT Alkaline Phosphatase Creatine Kinase 110 Troponin I < 0.03 Total Protein Albumin Active Medications Generic Name Dose Route Start Last Admin Trade Name Freq PRN Reason Stop Dose Admin Albuterol Sulfate 1 amp 02/14/18 09:37 Ventolin 0.083% Nebulizer Soln - NEB Q4H PRN SHORT OF BREATH/WHEEZING Apixaban 5 mg 02/14/18 10:00 02/17/18 10:19 Eliquis - PO 5 mg BID AVIVA Administration Atorvastatin Calcium 10 mg 02/14/18 22:00 02/16/18 22:46 Lipitor - PO 10 mg HS AVIVA Administration Bupropion HCl 150 mg 02/14/18 06:00 02/17/18 05:37 Wellbutrin - PO 150 mg TID AVIVA Administration Cholecalciferol 1,000 unit 02/14/18 10:00 02/17/18 10:20 Vitamin D3 - PO 1,000 unit BID [facility]IVA Administration Diltiazem HCl 60 mg 02/17/18 00:00 02/17/18 12:20 Cardizem - PO 60 mg Q6HPO [facility]IVA Administration Lorazepam 0.5 mg 02/14/18 06:00 02/17/18 10:22 Ativan - PO 0.5 mg 5XD [facility]IVA Administration Non-Formulary Med ( 0 each 02/14/18 22:00 02/16/18 22:48 Niacin 500mg) PO 1 each HS AVIVA Administration Pantoprazole Sodium 40 mg 02/14/18 10:00 02/17/18 10:20 Protonix - PO 40 mg DAILY AVIVA Administration Fluticasone/Salmeterol 1 puff 02/14/18 10:00 02/17/18 10:22 Advair 100mcg/50mcg - IH Not Given BID AVIVA Sucralfate 1 gm 02/14/18 10:30 02/17/18 10:19 Carafate Oral Suspension - PO 1 gm QID [facility]IV[facility] Administration Valsartan 160 mg 02/14/18 10:00 02/17/18 10:20 Diovan - PO 160 mg DAILY AVIVA Administration ASSESSMENT/PLAN: 1) GI abdominal pain resolved GERD - continue protonix 40mg daily and carafate - serial abdominal exams - discussed with Dr Bird, patient can complete EGD as outpatient 2)cardiovascular afib - patient noted to be in rapid afib rate 120's, pt was npo in am, cardizem 5mg IV x 1, followed by home dose cardizem, rate now better controlled 90's, continuos telemetry monitoring - continue eliquis lower extremity edema - no signs of fluid overload noted on exam continue to defer to lasix - cardiology consulted and following input hypertension - b/p at goal, continue valsartan 3) psych depression/anxiety - continue home medications wellbutrin and lorazapam 4) pulm copd - no acute excerbation at this time,continue albuterol nebulizer prn and symbicort (subsition for advair) Febrile one episode last evening -nursing did not document in v/s emr but noted in her notes and verbally given direction by ER doctor Markus. -repeat Lactic Acid now 1.2 -afebrile -encourage incentive spirometer -spoke with eitan Boateng who is concerned that this may be a GI fever, attempting to reach Dr. Bird for discussion. f/e/n hyponatremia -secondary to cholorithadone, continue to hold, strict monitoring of serum sodium - regular diet - replete lytes prn ppx - eliquis - protonix - physical therapy evaluation dispo: pt requires observation admission Visit type - Emergency Visit Emergency Visit: Yes ED Registration Date: 02/14/18 Care time: The patient presented to the Emergency Department on the above date and was hospitalized for further evaluation of their emergent condition. - New Patient This patient is new to me today: Yes Date on this admission: 02/17/18 - Critical Care Critical Care patient: No - Discharge Referral Referred to [facility].: No
[2018-02-17] MEDS ORDERED: BISACODYL 10 MG SUPP.RECT RC ONE (14:44)
[2018-02-17] MEDS: DOCUSATE SODIUM 100 MG CAPSULE (FP) PO SCH ×2 (15:07→21:30)
--- NOTE | 2018-02-17 17:32 | PN ---
Progress Note (short form) - Note Progress Note: CC: new onset afib S: no recurrence of sob. no cp, palps, dizziness. s/p uptitration of diltiazem to 60 mg q6h. Improved HR control today. lactate normalized. hyponatremia improving. Current Medications Albuterol Sulfate (Ventolin 0.083% Nebulizer Soln -) 1 amp NEB Q4H PRN PRN Reason: SHORT OF BREATH/WHEEZING Apixaban (Eliquis -) 5 mg PO BID [facility] Last Admin: 02/17/18 10:19 Dose: 5 mg Atorvastatin Calcium (Lipitor -) 10 mg PO HS [facility] Last Admin: 02/16/18 22:46 Dose: 10 mg Bupropion HCl (Wellbutrin -) 150 mg PO TID [facility] Last Admin: 02/17/18 14:10 Dose: 150 mg Cholecalciferol (Vitamin D3 -) 1,000 unit PO BID [facility] Last Admin: 02/17/18 10:20 Dose: 1,000 unit Diltiazem HCl (Cardizem -) 60 mg PO Q6HPO [facility] Last Admin: 02/17/18 12:20 Dose: 60 mg Docusate Sodium (Colace -) 100 mg PO TID [facility] Last Admin: 02/17/18 15:07 Dose: 100 mg Lorazepam (Ativan -) 0.5 mg PO 5XD [facility] Last Admin: 02/17/18 14:10 Dose: 0.5 mg Non-Formulary Med ( (Niacin 500mg)) 0 each PO [facility] Last Admin: 02/16/18 22:48 Dose: 1 each Pantoprazole Sodium (Protonix -) 40 mg PO DAILY [facility] Last Admin: 02/17/18 10:20 Dose: 40 mg Potassium Chloride (K-Dur -) 40 meq PO ONCE ONE Stop: 02/17/18 17:31 Fluticasone/Salmeterol (Advair 100mcg/50mcg -) 1 puff IH BID [facility] Last Admin: 02/17/18 10:22 Dose: Not Given Sucralfate (Carafate Oral Suspension -) 1 gm PO QID [facility] Last Admin: 02/17/18 14:10 Dose: 1 gm Valsartan (Diovan -) 160 mg PO DAILY [facility] Last Admin: 02/17/18 10:20 Dose: 160 mg Vital Signs - 24 hr 02/16/18 02/17/18 02/17/18 22:00 05:47 10:16 Temperature 98.7 F 97.8 F 97.6 F Pulse Rate 92 H 70 76 Respiratory 18 18 19 Rate Blood Pressure 128/53 109/59 113/54 O2 Sat by Pulse 100 97 Oximetry (%) 02/17/18 14:24 Temperature 98.2 F Pulse Rate 61 Respiratory 18 Rate Blood Pressure 111/45 O2 Sat by Pulse Oximetry (%) Intake & Output 02/15/18 02/16/18 02/17/18 02/18/18 07:59 07:59 07:59 07:59 Intake Total 1075 1350 450 400 Output Total 600 1 Balance 1075 1350 -150 399 Weight 131 lb 0.4 oz 129 lb 7 oz nad, calm jvd flat, neck supple slight diminished air movement, nl effort irregularly irregular nl s1, s2 no mrg, nd pmi + bs soft nt nd, no hsm + dp/pt, no carotid bruits no le e/c/c aaox3 no jaundice, no diaphoresis. CBC, BMP 02/17/18 07:50 02/17/18 07:50 Laboratory Tests 02/16/18 02/17/18 02/17/18 19:30 07:50 07:50 Lactic Acid 3.3 H* Magnesium 2.3 D Creatine Kinase Troponin I < 0.03 02/17/18 02/17/18 07:50 12:10 Lactic Acid 1.2 Magnesium Creatine Kinase 110 Troponin I ekg: aflutter, vr 88 bpm. lad, no ischemic ekg changes tele: afib, rate controlled 60s-70s echo 01/2018: nl lv/rv, no sig valve path, nl rvsp abd ct 01/2018: rt basilar atelectasis with trace associated pleural effusion. paraesophageal fluid collection. see emr for detailed report repeat cxr 02/16: report pending, no obvious pulmonary edema. elevated right hemidiaphragm obscures right base. ASSESSMENT/PLAN 72 yo with h/o recent diagnosis of afib s/p cataract removal this month, htn, hl , anxiety,depression, copd, and GERD who p/w abdominal pain. Pre-op clearance/abdominal pain - Possible paraesophageal fluid collection. GI work up ongoing. - Stable/asx from a CV perspective. no further testing needed prior to any surgical procedures/interventions. Based on rcri and functional status patient has a low estimated risk for cynthia-operative CV events. Patient counseled on risk. - If there is a possibility that AC needs to be held for any procedures, can transition to lovenox or heparin drip. OK to hold AC entirely if needed. afib/aflutter - recent diagnosis this month post-op after cataract surgery. - echo wnl - cont ac as mentioned above. - 02/16 episode of rvr today, likely in setting of brewing infection. (developed fever later in day). will uptitrate diltiazem but as short acting (in case bp drops). change to diltiazem 60 po q6h tonight. Lytes remain low. mg 1.4. repletion ongoing. - 02/17: improved HR control on current dilt dose, will transition to long acting dose (120 bid). sbp's stable. con't lyte repletion prn. worsening hyponatremia - in past hyponatremia has improved off of diuretics. weight not increasing, no signs of volume overload so low suspicion that patient needs diuresis ( episode of sob does not seem to be related pulmonary edema) Repeat pa/lateral cxr without congestion. - 02/17: hyponatremia improving with increased po intake. con't to hold chlorthalidone. htn - With worsened hyponatremia s/p lasix. Will hold chlorthalidone while patient intermittently on clears or npo. - con't diovan. sbp's stable but on lower end on higher dose of dilt. will need outpatient cardiology follow up to monitor for need for further adjustments. Patient counseled to monitor home bp/hr after discharge. hl - con't statin. copd - no acute exacerbation. con't home inhalers.
[2018-02-17] MEDS ORDERED: POTASSIUM CHLORIDE TABS 10 MEQ TABLET.ER (FP) PO ONE (18:30)
[2018-02-17] MEDS: ATORVASTATIN CA 10 MG TABLET (FP) PO SCH (21:31)
[2018-02-17] MEDS: NIACIN 500 MG PO SCH (21:32)
[2018-02-18] MEDS: dilTIAZem HCL 60 MG TABLET (FP) PO SCH (00:26)
[2018-02-18] MEDS ORDERED: PT OWN MED DRAWER 7, Y5N ONE ×2 (06:39→09:40)
[2018-02-18] MEDS: LORazepam 0.5 MG TABLET PO SCH ×2 (06:45→10:29)
[2018-02-18] MEDS: DOCUSATE SODIUM 100 MG CAPSULE (FP) PO SCH (06:45)
[2018-02-18] MEDS: buPROPion HCL 75 MG TABLET PO SCH (06:45)
[2018-02-18 08:06] LABS: HEMOGLOBIN 10.7 GM/dl (11.7-16.9); MCH 29.6 pg (25.7-33.7); MCHC 33.5 g/dl (32.0-35.9); MEAN CELL VOLUME 88.5 fl (80-96); MEAN PLT VOLUME 7.6 fl (7.5-11.1); PLATELET COUNT 317 K/MM3 (134-434); RBC 3.62 M/mm3 (4.00-5.60); RDW 11.9 % (11.9-15.9); WHITE BLOOD COUNT 5.6 K/mm3 (4.0-10.8)
[2018-02-18 08:21] LABS: ADD RBC MORPHOLOGY YES
[2018-02-18] MEDS ORDERED: BISACODYL 10 MG SUPP.RECT PR ONE (08:27)
[2018-02-18] MEDS ORDERED: MAGNESIUM HYDROX 2400MG/30ML ORAL SUSPENSION 30 ML CUP PO ONE (08:27)
[2018-02-18 08:47] LABS: ALBUMIN 2.6 g/dl (3.5-5.0); ALK PHOS 42 U/L (32-92); ANION GAP 7 (8-16); BILIRUBIN,TOTAL 0.3 mg/dl (0.2-1.0); BLOOD UREA NITROGEN 10 mg/dl (7-18); CALCIUM 8.3 mg/dl (8.4-10.2); CHLORIDE 100 mmol/L (98-107); CO2 23 mmol/L (22-28); CREATININE 1.1 mg/dl (0.6-1.3); GLUCOSE,RANDOM 107 mg/dl (74-106); MAGNESIUM 1.7 mg/dL (1.8-2.4); PHOSPHOROUS 2.4 mg/dl (2.5-4.6); SGOT/AST 20 U/L (10-42); SGPT/ALT 14 U/L (10-40); SODIUM 130 mmol/L (136-145); TOT PROT 5.7 g/dl (6.4-8.3)
[2018-02-18] MEDS ORDERED: NAPH,MB-DB/K PH,MBDB POWDER PACKET PO ONE (09:43)
[2018-02-18] MEDS ORDERED: MAGNESIUM OXIDE 400 MG TABLET (FP) PO ONE (09:43)
[2018-02-18 09:47] VITALS: BP 101/56; PULSE 69; TEMP 98.6
--- NOTE | 2018-02-18 09:48 | DS ---
Physical Exam: SUBJECTIVE: Patient seen and examined this AM. He feels well with the exception of constipation. He has not moved his bowels in 4 days and feels full. Ducolax supp and MOM given with success of a large BM. Pt is feeling well without fever, chest pain or palpitations and is in agreement of going home with an outpt work up and follow up . OBJECTIVE: Vital Signs Period Temp Pulse Resp BP Sys/Aguilar Pulse Ox Last 24 Hr 97.6 F-98.6 F 61-82 18-20 101-133/45-68 PHYSICAL EXAM GENERAL: The patient is awake, alert, and fully oriented, in no acute distress. HEAD: Normal with no signs of trauma. NECK: Trachea midline, full range of motion, supple. LUNGS: Breath sounds equal, clear to auscultation bilaterally, no wheezes, no crackles, no accessory muscle use. HEART: irregular rate and rhythm (AF), S1, S2 without murmur, rub or gallop. ABDOMEN: Soft, nontender, nondistended, normoactive bowel sounds, no guarding, no rebound, no hepatosplenomegaly, no masses. + BM this AM EXTREMITIES: 2+ pulses, warm, well-perfused, no edema. NEUROLOGICAL: Cranial nerves II through XII grossly intact. Normal speech, gait not observed. PSYCH: Normal mood, normal affect. SKIN: Warm, dry, normal turgor, no rashes or lesions noted. LABS Laboratory Results - last 24 hr 02/17/18 02/18/18 02/18/18 12:10 07:44 07:44 WBC 5.6 RBC 3.62 L Hgb 10.7 L Hct 32.0 L MCV 88.5 MCH 29.6 MCHC 33.5 RDW 11.9 Plt Count 317 MPV 7.6 Neutrophils % No Result Required. Lymphocytes % No Result Required. Sodium 130 L Potassium 4.0 Chloride 100 Carbon Dioxide 23 Anion Gap 7 L BUN 10 D Creatinine 1.1 D Creat Clearance w eGFR > 60 Random Glucose 107 H Lactic Acid 1.2 Calcium 8.3 L Phosphorus 2.4 L Magnesium 1.7 L D Total Bilirubin 0.3 D AST 20 ALT 14 Alkaline Phosphatase 42 Total Protein 5.7 L Albumin 2.6 L HOSPITAL COURSE: This 72 yrs old male was admitted on 02/14 for epigastric pain primarily after eating on and off for few months but worsened and was admitted for work up. He had recently had cataract sx and developed AF post op. He is now on Eliquist. While his work up was in progress, he underwent a CT of abd with a finding of right paraesopgeal mass/fluid to cause concern. Dr. Bird, GI was following pt and initiated protonix bid and carafate. An esophogram followed with finding of no mass, stricture that needed surgical intervention at this time. An endoscopy was ordered for further work up however, pt was on lasix and it is felt that his Na declined due to medications and his Na was 129 at one point. No neurological changes seen however anesthesia felt it was better to error on caution and correct Na doing endoscopy as an OP. Pt sodium stabilized once lasix were held, remaining 130-131. he was followed closely with cardiology. They suggest continuing Eliquist and can hold for endoscopy as OP, hold lasix for now, continue diovan and cardizem. During one evening that pt was hospitalized, he developed fever 101 and chills according to community health nurse staff. He was seen by ER MD who ordered tylenol, blood cx and ua as well as labs/lactic acid. His blood pressure currently is NGTD, Lactic acid initially 3.3 but now 1.2 resolving on own. This one bout of fever resolved and no current finding of cause. No antibiotics initiated. Dr. Bird was made aware and feels this is unexplained but can be discharged with follow up with his PCP, himself and cardiology. Pt understands cautiousness for any new onset fever and will return to ER if needed. Currently pt agapito be discharged to home with instructions. Problem list 1. Reflux/ diff swallowing -follow up with Dr. Bird, -continue to take carafate and protonix until follow up -sit up in chair for all foods/meals and remain up for at least 30 min after eating -follow up for Endoscopy OP 2. AF -follow up with cardiology -contineu Eliquist -daily weight while holding Lasix until follow up 3.. Hyponatremia -hold lasix - daily weight -repeat BMP in 5 days 4. HTN -continue diovan, cardizem 5. Fever -resolved -follow up if new fever -blood cx preliminary NGTD and will need to be trended -notifiy MD immediately -drink water but watch intake with low NA 6 Constipatio -may add stool softner as needed -ambulate frequently to increase peristalsis. Date of Admission:02/14/18 Date of Discharge: 02/18/18 Minutes to complete discharge: 60 Discharge Summary Reason For Visit: DIVERTICULUM OF ESOPHAGUS, ABDOMINAL PAIN, CHF Current Active Problems Abdominal pain (Acute) CHF (congestive heart failure) (Acute) Esophageal diverticulum (Acute) Condition: Stable - Instructions Diet, Activity, Other Instructions: Discharge Instructions 1. Please call your primary physician and notify him that you have been in the hospital for difficulties in swallowing but incidentally had a finding of low sodium levels. 2. Please call Dr. Bird GI for a follow up for outpatient endoscopy once your sodium levels return to normal 3. Please follow up with your executive office manager for monitoring the new onset atrial fibrillation and eliquist management. 4. Continue to take in foods that are soft if difficulty in swallowing but also continue the carafate and protonix until your follow up with Dr. Bird. 5. Any chest pain, shortness of breath, fever, chills, abdominal pain, difficulty in swallowing, return to the ER immediately. Referrals: Matheus Jean Baptiste MD [Primary Care Provider] - - Home Medications Comprehensive Discharge Medication List: Ambulatory Orders Cholecalciferol (Vitamin D3) [Vitamin D] 1,000 unit PO BID 09/23/13 Lorazepam 0.5 mg PO 5XD 09/23/13 Niacin [Niaspan] 1,000 mg PO HS 09/23/13 Omeprazole [Prilosec (RX)] 20 mg PO DAILY 09/23/13 Potassium Chloride [Klor-Con 8] 8 meq PO TID 09/23/13 Simvastatin [Zocor -] 20 mg PO HS 09/23/13 Valsartan [Diovan] 160 mg PO DAILY 09/23/13 Apixaban [Eliquis -] 5 mg PO BID #60 tablet 02/02/18 Bupropion HCl [Wellbutrin -] 150 mg PO TID #90 tablet 02/04/18 Diltiazem Cd [Cardizem Cd -] 180 mg PO DAILY #30 cap.cd.24h 02/04/18 Chlorthalidone 25 mg PO DAILY 02/13/18 Fluticasone/Salmeterol [Advair Hfa 45-21 Mcg Inhaler] 2 inh PO BID 02/13/18 This patient is new to me today: No Emergency Visit: Yes ED Registration Date: 02/14/18 Care time: The patient presented to the Emergency Department on the above date and was hospitalized for further evaluation of their emergent condition. Critical Care patient: No - Discharge Referral Referred to [facility] No
[2018-02-18 10:28] LABS: PLATELET ESTIMATE ADEQUATE
[2018-02-18] MEDS: PANTOPRAZOLE 40 MG TABLET (FP) PO SCH (10:28)
[2018-02-18] MEDS: VALSARTAN 160 MG TABLET (UD) PO SCH (10:28)
[2018-02-18] MEDS: CHOLECALCIFEROL (VITAMIN D3) 1,000 UNIT TABLET (FP) PO SCH (10:28)
[2018-02-18] MEDS: SUCRALFATE 1 GM/10 ML UNIT DOSE CUPS PO SCH (10:28)
[2018-02-18] MEDS: APIXABAN 5 MG TABLET PO SCH (10:28)
[2018-02-18] MEDS: FLUTICASONE/SALMETEROL 100 MCG/50 MCG DISKUS IH SCH (10:29)
--- NOTE | 2018-02-22 12:56 | EKG ---
Test Reason : Blood Pressure : / mmHG Vent. Rate : 098 BPM Atrial Rate : 300 BPM P-R Int : 000 ms QRS Dur : 082 ms QT Int : 300 ms P-R-T Axes : 000 -29 022 degrees QTc Int : 383 ms POOR DATA QUALITY, INTERPRETATION MAY BE ADVERSELY AFFECTED ATRIAL FIBRILLATION NONSPECIFIC ST AND T WAVE ABNORMALITY ABNORMAL ECG WHEN COMPARED WITH ECG OF 13-FEB-2018 19:51, ATRIAL FIBRILLATION HAS REPLACED ATRIAL FLUTTER ST NOW DEPRESSED IN LATERAL LEADS QT HAS SHORTENED Confirmed by DEVYN ISSA, MAC ([id number]) on 02/22/2018 12:56:46 PM Referred By: MAIKEL MENDOZA Confirmed By:MAC SHEPARD MD
== END 2018-02-18 11:54 | disposition home or self-care (01) ==
LOC: FER 19:12 → FM/S 02-14 01:36
PROVIDERS: ADMIT Internal Medicine; ATTEND Nurse Practitioner Family
PROC: 3E0337Z Introduction of Electrolytic and Water Balance Substance into Peripheral Vein, Percutaneous Approach (ICD-10-PCS; principal; 2018-02-14)
PROC: 3E0333Z Introduction of Anti-inflammatory into Peripheral Vein, Percutaneous Approach (ICD-10-PCS; 2018-02-14)
PROC: 3E033NZ Introduction of Analgesics, Hypnotics, Sedatives into Peripheral Vein, Percutaneous Approach (ICD-10-PCS; 2018-02-14)
PROC: 3E033GC Introduction of Other Therapeutic Substance into Peripheral Vein, Percutaneous Approach (ICD-10-PCS; 2018-02-14)
PROC: 3E0F7GC Introduction of Other Therapeutic Substance into Respiratory Tract, Via Natural or Artificial Opening (ICD-10-PCS; 2018-02-14)
DX: R10.13 Epigastric pain (principal); I50.9 Heart failure, unspecified; I48.91 Unspecified atrial fibrillation; R60.0 Localized edema; F41.9 Anxiety disorder, unspecified; F32.9 Major depressive disorder, single episode, unspecified; E87.1 Hypo-osmolality and hyponatremia; E78.5 Hyperlipidemia, unspecified; R50.9 Fever, unspecified; K59.00 Constipation, unspecified; J44.9 Chronic obstructive pulmonary disease, unspecified; K21.9 Gastro-esophageal reflux disease without esophagitis; I48.92 Unspecified atrial flutter; Z79.01 Long term (current) use of anticoagulants; Z87.891 Personal history of nicotine dependence
CPT/HCPCS: 36415; 71045-TC-FY; 71046-TC-FY; 74177-TC; 74220-TC-FY; 80048; 80053; 81003; 82550; 83605; 83735; 83880; 84100; 84484; 85025; 85027; 85610; 86850; 86900; 86901; 87040; 93005; 93010; 94640; 96374; 96375; 96376; 97116-GP; 97161-GP; 99285-25; G0378; J7030

== ENCOUNTER 2018-02-20 18:40 | Emergency (ER) | payer OTHER ==
[2018-02-20 19:01] VITALS: BP 138/70; PULSE 92; TEMP 98.5; BMI 22.3
--- NOTE | 2018-02-20 21:32 | PDOC ---
History of Present Illness - General History Source: Patient, Significant Other Exam Limitations: No Limitations - History of Present Illness Initial Comments: 02/20/18 21:37 The patient is a 72 year old male, with a significant past medical history of COPD, hypertension, hyperlipidemia, GERD, who presents to the emergency department via walk-in with, diffuse abdominal discomfort and decrease in appetite. The patient states he was recently admitted to [facility] from Tuesday 02/13 - Sunday 02/18 for a similar complaint of abdominal discomfort. The patient states he felt fine up until this morning when he began to have diffuse abdominal discomfort and noticed his feet appeared swollen. The patient states he has had decreased appetite throughout the day secondary to the abdominal discomfort but states he was able to tolerate pancakes and chicken broth earlier today. He denies any recent nausea or vomiting. The patient states his last bowel movement was yesterday morning which he describes as normal (denies diarrhea, melena or hematochezia). The patient reports he has an upcoming appointment with his GI Dr. Bird on . He denies any recent fevers, chills, headache or dizziness. He denies any recent nausea, vomit, diarrhea or constipation. He denies any recent chest pain or shortness of breath. He denies any recent dysuria, frequency, urgency or hematuria. Allergies: NKA PCP: Dr. Matheus Jean Baptiste <Matheus Santoyo - Last Filed: 02/20/18 21:42> <Oneyda Traore - Last Filed: 02/21/18 02:31> - General Chief Complaint: Pain Stated Complaint: SWOLLEN FEET, ABD PAIN Time Seen by Provider: 02/20/18 19:15 Past History <Matheus Santoyo - Last Filed: 02/20/18 21:42> - Past Medical History Anemia: No Asthma: Yes Cancer: No Cardiac Disorders: No CVA: No COPD: Yes CHF: No Dementia: No Diabetes: No GI Disorders: Yes (GERD, gastritis) Disorders: No HTN: Yes Hypercholesterolemia: Yes Liver Disease: No Psychiatric Problems: Yes (ANXIETY) Seizures: No Thyroid Disease: No - Surgical History Abdominal Surgery: No Appendectomy: No Cardiac Surgery: No Cholecystectomy: Yes Lung Surgery: No Neurologic Surgery: No Orthopedic Surgery: Yes (DEMETRICE SHOULDER ARTHROSCOPIES) - Immunization History Td Vaccination: Yes Immunization Up to Date: Yes - Suicide/Smoking/Psychosocial Hx Smoking Status: No Smoking History: Former smoker Have you smoked in the past 12 months: No Number of Cigarettes Smoked Daily: 0 If you are a former smoker, when did you quit?: 1990s Cigars Per Day: 0 Information on smoking cessation initiated: No Hx Alcohol Use: (nightly) Drug/Substance Use Hx: No Substance Use Type: None Hx Substance Use Treatment: No <Oneyda Traore - Last Filed: 02/21/18 02:31> - Past Medical History Allergies/Adverse Reactions: Allergies Allergy/AdvReac Type Severity Reaction Status Date / Time No Known Drug Allergies Allergy Verified 02/20/18 18:43 Home Medications: Ambulatory Orders Cholecalciferol (Vitamin D3) [Vitamin D] 1,000 unit PO BID 09/23/13 Lorazepam 0.5 mg PO 5XD 09/23/13 Niacin [Niaspan] 1,000 mg PO HS 09/23/13 Simvastatin [Zocor -] 20 mg PO HS 09/23/13 Valsartan [Diovan] 160 mg PO DAILY 09/23/13 Apixaban [Eliquis -] 5 mg PO BID #60 tablet 02/02/18 Bupropion HCl [Wellbutrin -] 150 mg PO TID #90 tablet 02/04/18 Diltiazem Cd [Cardizem Cd -] 180 mg PO DAILY #30 cap.cd.24h 02/04/18 Fluticasone/Salmeterol [Advair Hfa 45-21 Mcg Inhaler] 2 inh PO BID 02/13/18 Pantoprazole Sodium [Protonix -] 40 mg PO BID #14 tablet.ec 02/18/18 Sucralfate [Carafate -] 1 gm PO BID #60 tablet 02/18/18 Docusate Sodium [Colace -] 100 mg PO BID #14 capsule 02/20/18 Hyoscyamine Odt [Levsin Odt -] 0.125 mg PO TID PRN #12 tab.rapdis 02/20/18 Review of Systems - Review of Systems Comments:: 02/20/18 21:38 GENERAL/CONSTITUTIONAL: +Decrease in appetite. No fever or chills. No weakness. HEAD, EYES, EARS, NOSE AND THROAT: No change in vision. No ear pain or discharge. No sore throat. CARDIOVASCULAR: +Lower extremity swelling. No chest pain or shortness of breath. RESPIRATORY: No cough, wheezing, or hemoptysis. GASTROINTESTINAL: +Diffuse abdominal discomfort. No nausea, vomiting, diarrhea or constipation. GENITOURINARY: No dysuria, frequency, or change in urination. MUSCULOSKELETAL: No joint or muscle swelling or pain. No neck or back pain. SKIN: No rash NEUROLOGIC: No headache, vertigo, loss of consciousness, or change in strength/ sensation. ENDOCRINE: No increased thirst. No abnormal weight change. HEMATOLOGIC/LYMPHATIC: No anemia, easy bleeding, or history of blood clots. ALLERGIC/IMMUNOLOGIC: No hives or skin allergy. <Matheus Santoyo - Last Filed: 02/20/18 21:42> *Physical Exam - Vital Signs Last Vital Signs Temp Pulse Resp BP Pulse Ox 98.5 F 92 H 18 138/70 99 02/20/18 18:40 04 18:40 02/20/18 18:40 02/20/18 18:40 02/20/18 18:40 - Physical Exam Comments: 02/20/18 21:42 GENERAL: Awake, alert, and fully oriented, in no acute distress HEAD: No signs of trauma EYES: PERRLA, EOMI, sclera anicteric, conjunctiva clear ENT: Auricles normal inspection, hearing grossly normal, nares patent, oropharynx clear without exudates. Moist mucosa NECK: Normal ROM, supple, no lymphadenopathy, JVD, or masses LUNGS: Breath sounds equal, clear to auscultation bilaterally. No wheezes, and no crackles HEART: +Irregularly irregular. Normal S1 and S2, no murmurs, rubs or gallops ABDOMEN: +Moderate distention but soft. +Minimal generalized tenderness. No guarding or rebound tenderness. No masses. Normal bowel sounds. EXTREMITIES: 1+ pitting edema of the ankles bilaterally. Normal range of motion. No clubbing or cyanosis. No cords, erythema, or tenderness NEUROLOGICAL: Cranial nerves II through XII grossly intact. Normal speech, normal gait SKIN: Warm, Dry, normal turgor, no rashes or lesions noted. <Matheus Santoyo - Last Filed: 02/20/18 21:42> - Vital Signs Last Vital Signs Temp Pulse Resp BP Pulse Ox 98.5 F 92 H 18 138/70 99 02/20/18 18:40 02/20/18 18:40 02/20/18 18:40 02/20/18 18:40 02/20/18 18:40 <Oneyda Traore - Last Filed: 02/21/18 02:31> ED Treatment Course - LABORATORY CBC & Chemistry Diagram: 02/20/18 21:50 02/20/18 21:54 <Oneyda Traore - Last Filed: 02/21/18 02:31> Medical Decision Making - Medical Decision Making Documentation has been prepared under my direction and personally reviewed by me in its entirety. I attest that this documented accurately reflects all work, treatment, procedures and medical decision making performed by me. As noted above, this 72-year-old man with a history of atrial fibrillation/GERD/ gastritis/anxiety presents with abdominal discomfort 1 day. Patient had been admitted here for similar symptom last week. He was discharged 48 hours ago. He states that he was comfortable yesterday but has had increasing generalized mild abdominal discomfort and distention today. He ate lightly and has not had any vomiting today. He also has not had a bowel movement for the last 48 hours , which patient states is unusual for him. Patient is also concerned that his ankles have begun to be mildly swollen today. 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 During the hospitalization, the patient had been scheduled for upper endoscopy but procedure was delayed because of his hyponatremia. Plan was for the patient to have his endoscopy as an outpatient. Exam as noted. Patient has no abdominal point tenderness or guarding/rebound. He is mildly distended however, CBC/chemistry profile/cardiac enzymes performed. CBC essentially normal except for slightly elevated platelet count of 444,000. Chemistry reveals very mild hyponatremia of 132 mEq per deciliter and the remainder of the chemistry profile is essentially normal. Troponin is not elevated Etiology of the patient's nonspecific abdominal discomfort is unclear; Protonix 40 mg IV administered because of patient's history of gastritis/GERD. He was also given Levsin ODT 0.125 mg. The patient states that he has never been told that he had "irritable bowel syndrome" or "spastic colon", however, because of the mild and recurrent nature of the pain as well as patient's history of anxiety, he may have an element of this causing his pain. Patient reports some relief of his pain after administration of Levsin. 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 He states that 's appointment is actually with his general medical doctor, . [employer], Dr. Robert Bird, contacted and case discussed with him. Patient can call the office in the morning and arrange to be seen on February [address] Bird is in the [place] office. This was discussed with the patient and his and they will call in the morning. <Oneyda Traore - Last Filed: 02/21/18 02:31> *DC/Admit/Observation/Transfer - Attestations Scribe Attestion: 02/20/18 21:39 Documentation prepared by Matheus Santoyo, acting as medical case worker for Oneyda Traore MD. <Matheus Santoyo - Last Filed: 02/20/18 21:42> <Oneyda Traore - Last Filed: 02/21/18 02:31> Diagnosis at time of Disposition: GERD (gastroesophageal reflux disease) Qualifiers: Esophagitis presence: without esophagitis Qualified Code(s): K21.9 - Gastro- esophageal reflux disease without esophagitis - Discharge Dispostion Disposition: HOME Condition at time of disposition: Stable - Prescriptions Prescriptions: Docusate Sodium [Colace -] 100 mg PO BID #14 capsule Hyoscyamine Odt [Levsin Odt -] 0.125 mg PO TID PRN #12 tab.rapdis PRN Reason: Pain - Referrals Referrals: Robert Bird MD [Staff Physician] - Call tomorrow - Patient Instructions Printed Discharge Instructions: DI for Abdominal Pain-Adult Additional Instructions: Drink plenty of water Continue medications as prescribed Elevate legs as much as possible Levsin ODT 0.125mg, dissolve on tongue up to 3 times a day as needed for abdominal discomfort Colace 100 mg twice a day Call Dr. Bird office tomorrow to arrange follow-up on February Follow-up with and as arranged Return to ER if you have severe pain/vomiting/fever/chest pain/shortness of breath
[2018-02-20] MEDS ORDERED: PANTOPRAZOLE SODIUM 40 MG VIAL IVPB ONE (21:35)
[2018-02-20] MEDS ORDERED: HYOSCYAMINE SULFATE 0.125 MG *ODT PO ONE (21:42)
[2018-02-20] MEDS ORDERED: PANTOPRAZOLE SODIUM 40 MG VIAL ONE (21:55)
[2018-02-20] MEDS ORDERED: HYOSCYAMINE SULFATE 0.125 MG *ODT ONE (22:02)
[2018-02-20 22:03] LABS: BASO % 0.7 % (0-2.0); EOS % 6.5 % (0-4.5); LYMPH % 27.3 % (8-40); MCH 29.2 pg (25.7-33.7); MCHC 33.3 g/dl (32.0-35.9); MEAN CELL VOLUME 87.8 fl (80-96); MEAN PLT VOLUME 7.4 fl (7.5-11.1); MONO % 13.4 % (3.8-10.2); NEUT % 52.1 % (42.8-82.8); PLATELET COUNT 440 K/MM3 (134-434); RDW 12.2 % (11.9-15.9); WHITE BLOOD COUNT 7.8 K/mm3 (4.0-10.8)
[2018-02-20 22:16] LABS: ALBUMIN 3.2 g/dl (3.5-5.0); ALK PHOS 58 U/L (32-92); ANION GAP 10 (8-16); BLOOD UREA NITROGEN 13 mg/dl (7-18); CHLORIDE 95 mmol/L (98-107); CO2 27 mmol/L (22-28); GLUCOSE,RANDOM 104 mg/dl (74-106); POTASSIUM 3.8 mmol/L (3.5-5.1); SGOT/AST 21 U/L (10-42); SGPT/ALT 15 U/L (10-40); SODIUM 132 mmol/L (136-145); TOT PROT 6.8 g/dl (6.4-8.3)
[2018-02-20 22:29] LABS: BILIRUBIN,TOTAL < 0.5 mg/dl (0.2-1.0)
== END 2018-02-20 23:08 | disposition home or self-care (01) ==
LOC: FER 18:40
PROC: 3E033GC Introduction of Other Therapeutic Substance into Peripheral Vein, Percutaneous Approach (ICD-10-PCS; principal; 2018-02-20)
DX: K21.9 Gastro-esophageal reflux disease without esophagitis (principal); F41.9 Anxiety disorder, unspecified; J44.9 Chronic obstructive pulmonary disease, unspecified; E78.00 Pure hypercholesterolemia, unspecified; I10 Essential (primary) hypertension
CPT/HCPCS: 36415; 80053; 82550; 84484; 85025; 99282-25

== ENCOUNTER 2018-02-22 11:50 | Emergency (ER) | payer OTHER ==
--- NOTE | 2018-02-22 11:52 | PDOC ---
History of Present Illness - General Chief Complaint: Tachycardia Stated Complaint: INCREASED HEART RATE Time Seen by Provider: 02/22/18 11:52 History Source: Patient Exam Limitations: No Limitations - History of Present Illness Initial Comments: 72 yo M history GERD, HL, HTN, afib presents with elevated HR. He was in Dr. Bird's office for routine f/u for constipation, abdominal pain and was found to have HR 147 on vital signs. He was asymptomatic at the time. He was evaluated in the ED 2 days ago for swelling in his legs which has since resolved. No cp, SOB, leg swelling at present. C/o wheezing (similar to prior symptoms with COPD , usually responds to nebs). Past History - Past Medical History Allergies/Adverse Reactions: Allergies Allergy/AdvReac Type Severity Reaction Status Date / Time No Known Drug Allergies Allergy Verified 02/22/18 11:52 Home Medications: Ambulatory Orders Cholecalciferol (Vitamin D3) [Vitamin D] 1,000 unit PO BID 09/23/13 Lorazepam 0.5 mg PO 5XD 09/23/13 Niacin [Niaspan] 1,000 mg PO HS 09/23/13 Simvastatin [Zocor -] 20 mg PO HS 09/23/13 Valsartan [Diovan] 160 mg PO DAILY 09/23/13 Apixaban [Eliquis -] 5 mg PO BID #60 tablet 02/02/18 Bupropion HCl [Wellbutrin -] 150 mg PO TID #90 tablet 02/04/18 Fluticasone/Salmeterol [Advair Hfa 45-21 Mcg Inhaler] 2 inh PO BID 02/13/18 Pantoprazole Sodium [Protonix -] 40 mg PO BID #14 tablet.ec 02/18/18 Sucralfate [Carafate -] 1 gm PO BID #60 tablet 02/18/18 Docusate Sodium [Colace -] 100 mg PO BID #14 capsule 02/20/18 Hyoscyamine Odt [Levsin Odt -] 0.125 mg PO TID PRN #12 tab.rapdis 02/20/18 Diltiazem Cd [Cardizem Cd -] 120 mg PO BID #60 cap.cd.24h 02/22/18 Anemia: No Asthma: Yes Cancer: No Cardiac Disorders: No CVA: No COPD: Yes CHF: No Dementia: No Diabetes: No GI Disorders: Yes (GERD, gastritis) Disorders: No HTN: Yes Hypercholesterolemia: Yes Liver Disease: No Psychiatric Problems: Yes (ANXIETY) Seizures: No Thyroid Disease: No - Surgical History Abdominal Surgery: No Appendectomy: No Cardiac Surgery: No Cholecystectomy: Yes Lung Surgery: No Neurologic Surgery: No Orthopedic Surgery: Yes (DEMETRICE SHOULDER ARTHROSCOPIES) - Immunization History Td Vaccination: Yes Immunization Up to Date: Yes - Suicide/Smoking/Psychosocial Hx Smoking Status: No Smoking History: Former smoker Have you smoked in the past 12 months: No Number of Cigarettes Smoked Daily: 0 If you are a former smoker, when did you quit?: 1990s Cigars Per Day: 0 Hx Alcohol Use: (nightly) Drug/Substance Use Hx: No Substance Use Type: None Hx Substance Use Treatment: No Review of Systems - Review of Systems Able to Perform ROS?: Yes Comments:: GENERAL/CONSTITUTIONAL: No fever or chills. No weakness. HEAD, EYES, EARS, NOSE AND THROAT: No change in vision. No ear pain or discharge. No sore throat. CARDIOVASCULAR: No chest pain or shortness of breath. RESPIRATORY: No cough, wheezing, or hemoptysis. GASTROINTESTINAL: No nausea, vomiting, diarrhea. +Constipation. GENITOURINARY: No dysuria, frequency, or change in urination. MUSCULOSKELETAL: No joint or muscle swelling or pain. No neck or back pain. SKIN: No rash NEUROLOGIC: No headache, vertigo, loss of consciousness, or change in strength/ sensation. ENDOCRINE: No increased thirst. No abnormal weight change. HEMATOLOGIC/LYMPHATIC: No anemia, easy bleeding, or history of blood clots. ALLERGIC/IMMUNOLOGIC: No hives or skin allergy. *Physical Exam - Physical Exam Comments: GENERAL: Awake, alert, and fully oriented, in no acute distress HEAD: No signs of trauma EYES: PERRLA, EOMI, sclera anicteric, conjunctiva clear ENT: Auricles normal inspection, hearing grossly normal, nares patent, oropharynx clear without exudates. Moist mucosa NECK: Normal ROM, supple, no lymphadenopathy, JVD, or masses LUNGS: Breath sounds equal, clear to auscultation bilaterally. No wheezes, and no crackles HEART: Irregularly irregular, normal S1 and S2, no murmurs, rubs or gallops ABDOMEN: Soft, nontender, normoactive bowel sounds. No guarding, no rebound. No masses EXTREMITIES: Normal range of motion, no edema. No clubbing or cyanosis. No cords, erythema, or tenderness NEUROLOGICAL: Cranial nerves II through XII grossly intact. Normal speech, normal gait. SKIN: Warm, Dry, normal turgor, no rashes or lesions noted. Heart Score/ECG Review - ECG Impressions Comment:: EKG read 12:09- aflutter, rate 116 ED Treatment Course - LABORATORY CBC & Chemistry Diagram: 02/22/18 12:21 02/22/18 12:21 Medical Decision Making - Medical Decision Making 02/22/18 13:34 Late entry. Patient initially with tachycardia 110s-120s on first evaluation, now in 70s, so cardizem was not given. Awaiting labs. Will discuss with cardio if needed. No swelling in legs at present and no calf tenderness. 02/22/18 14:36 D/w Dr. Breen. *DC/Admit/Observation/Transfer Diagnosis at time of Disposition: Atrial fibrillation Qualifiers: Atrial fibrillation type: unspecified Qualified Code(s): I48.91 - Unspecified atrial fibrillation - Discharge Dispostion Disposition: HOME Condition at time of disposition: Stable Admit: No - Prescriptions Prescriptions: Diltiazem Cd [Cardizem Cd -] 120 mg PO BID #60 cap.cd.24h - Referrals - Patient Instructions - Post Discharge Activity
[2018-02-22 12:06] VITALS: TEMP 97.7; BMI 22.3
[2018-02-22] MEDS ORDERED: dilTIAZem HCL 50 MG/10 ML - 10 ML VIAL IVPUSH ONE (12:34)
[2018-02-22 12:50] LABS: BASO % 1.3 % (0-2.0); EOS % 4.5 % (0-4.5); HEMATOCRIT 37.2 % (35.4-49); HEMOGLOBIN 12.6 GM/dl (11.7-16.9); LYMPH % 22.5 % (8-40); MCH 29.4 pg (25.7-33.7); MCHC 33.7 g/dl (32.0-35.9); MEAN CELL VOLUME 87.2 fl (80-96); MEAN PLT VOLUME 7.8 fl (7.5-11.1); MONO % 10.9 % (3.8-10.2); NEUT % 60.8 % (42.8-82.8); PLATELET COUNT 454 K/MM3 (134-434); RBC 4.27 M/mm3 (4.00-5.60); RDW 12.3 % (11.9-15.9); WHITE BLOOD COUNT 7.1 K/mm3 (4.0-10.8)
[2018-02-22] MEDS ORDERED: dilTIAZem HCL 50 MG/10 ML - 10 ML VIAL ONE (12:50)
[2018-02-22] MEDS ORDERED: ALBUTEROL SO4 2.5/IPRATROPIUM 0.5 INH SOL 3 ML VIAL.NEB. NEB ONE ×2 (13:04→13:05)
[2018-02-22 13:20] LABS: ALBUMIN 3.1 g/dl (3.5-5.0); ALK PHOS 55 U/L (32-92); ANION GAP 6 (8-16); BILIRUBIN,TOTAL 0.2 mg/dl (0.2-1.0); BLOOD UREA NITROGEN 13 mg/dl (7-18); CALCIUM 8.8 mg/dl (8.4-10.2); CHLORIDE 99 mmol/L (98-107); CO2 23 mmol/L (22-28); GLUCOSE,RANDOM 103 mg/dl (74-106); POTASSIUM 3.8 mmol/L (3.5-5.1); SGOT/AST 16 U/L (10-42); SGPT/ALT 13 U/L (10-40); SODIUM 128 mmol/L (136-145); TOT PROT 6.8 g/dl (6.4-8.3)
[2018-02-22 14:24] LABS: N-TERMINAL BNP 1113.31 pg/ml (5-125)
--- NOTE | 2018-02-22 14:38 | EKG ---
Test Reason : Blood Pressure : / mmHG Vent. Rate : 116 BPM Atrial Rate : 286 BPM P-R Int : 000 ms QRS Dur : 092 ms QT Int : 352 ms P-R-T Axes : 000 -36 029 degrees QTc Int : 489 ms ATRIAL FLUTTER WITH VARIABLE A-V BLOCK LEFT AXIS DEVIATION ABNORMAL ECG WHEN COMPARED WITH ECG OF 16-FEB-2018 19:06, ATRIAL FLUTTER HAS REPLACED ATRIAL FIBRILLATION Confirmed by DEVYN ISSA, MAC ([id number]) on 02/22/2018 2:38:16 PM Referred By: DR ALVAREZ Confirmed By:MAC SHEPARD MD
[2018-02-22 15:08] VITALS: BP 127/77; PULSE 73
== END 2018-02-22 15:08 | disposition home or self-care (01) ==
LOC: FER 11:50
PROC: 3E0F7GC Introduction of Other Therapeutic Substance into Respiratory Tract, Via Natural or Artificial Opening (ICD-10-PCS; principal; 2018-02-22)
DX: I48.91 Unspecified atrial fibrillation (principal); I10 Essential (primary) hypertension; E78.5 Hyperlipidemia, unspecified; K21.9 Gastro-esophageal reflux disease without esophagitis
CPT/HCPCS: 36415; 71045-TC-FY; 80053; 82550; 83880; 84443; 84484; 85025; 93005; 94640; 99283-25

== ENCOUNTER 2018-03-01 15:21 | Emergency (ER) | payer OTHER ==
[2018-03-01 15:50] VITALS: TEMP 97.8; BMI 22.3
[2018-03-01] MEDS ORDERED: FUROSEMIDE 20 MG TABLET (FP) PO ONE (16:02)
[2018-03-01] MEDS ORDERED: CYCLOBENZAPRINE HCL 10 MG TABLET (FP) PO ONE (16:03)
--- NOTE | 2018-03-01 16:06 | PDOC ---
History of Present Illness - General History Source: Patient <Ben Vargas S - Last Filed: 03/01/18 16:00> - General History Source: Patient, Spouse Exam Limitations: No Limitations - History of Present Illness Initial Comments: The patient is a 72 year old male with past medical history of GERD, HL, HTN, and afib presents to the ED complaining of swelling in the leg and neck pain. The patient reports he was about to take a shower when he noticed swelling to the legs. The patient reports he experiences SOB sometimes, especially when climbing up stairs. The patient reports he pinched a nerve on the back of his neck 3 days ago. The patient reports he rubbed Bengay but states it didnt provide any relief. The patient report a month ago he noticed an increase in weight, he gained 7 pounds. The patient reports he was taken off diuretics due to low sodium. 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 03/01/18 16:17 <Geetha Lawson - Last Filed: 03/01/18 16:32> - General Chief Complaint: Edema Stated Complaint: LOWER EXTREMITY EDEMA Time Seen by Provider: 03/01/18 15:27 Past History - Past Medical History Anemia: No Asthma: Yes Cancer: No Cardiac Disorders: Yes (A FIB) CVA: No COPD: Yes CHF: No DVT: No Dementia: No Diabetes: No GI Disorders: Yes (GERD, gastritis) Disorders: No HTN: Yes Hypercholesterolemia: Yes Liver Disease: No Psychiatric Problems: Yes (ANXIETY) Seizures: No Thyroid Disease: No - Surgical History Abdominal Surgery: No Appendectomy: No Cardiac Surgery: No Cholecystectomy: Yes Lung Surgery: No Neurologic Surgery: No Orthopedic Surgery: Yes (DEMETRICE SHOULDER ARTHROSCOPIES) - Immunization History Td Vaccination: Yes Immunization Up to Date: Yes - Suicide/Smoking/Psychosocial Hx Smoking Status: No Smoking History: Former smoker Have you smoked in the past 12 months: No Number of Cigarettes Smoked Daily: 0 If you are a former smoker, when did you quit?: 1990s Cigars Per Day: 0 Information on smoking cessation initiated: No Hx Alcohol Use: Yes (WINE) Drug/Substance Use Hx: No Substance Use Type: Alcohol Hx Substance Use Treatment: No <Ben Vargas - Last Filed: 03/01/18 16:00> <Geetha Lawson - Last Filed: 03/01/18 16:32> - Past Medical History Allergies/Adverse Reactions: Allergies Allergy/AdvReac Type Severity Reaction Status Date / Time No Known Drug Allergies Allergy Mild Verified 03/01/18 15:22 Home Medications: Ambulatory Orders Cholecalciferol (Vitamin D3) [Vitamin D] 1,000 unit PO BID 09/23/13 Lorazepam 0.5 mg PO 5XD 09/23/13 Niacin [Niaspan] 1,000 mg PO HS 09/23/13 Simvastatin [Zocor -] 20 mg PO HS 09/23/13 Valsartan [Diovan] 160 mg PO DAILY 09/23/13 Apixaban [Eliquis -] 5 mg PO BID #60 tablet 02/02/18 Bupropion HCl [Wellbutrin -] 150 mg PO TID #90 tablet 02/04/18 Fluticasone/Salmeterol [Advair Hfa 45-21 Mcg Inhaler] 2 inh PO BID 02/13/18 Pantoprazole Sodium [Protonix -] 40 mg PO BID #14 tablet.ec 02/18/18 Sucralfate [Carafate -] 1 gm PO BID #60 tablet 02/18/18 Docusate Sodium [Colace -] 100 mg PO BID #14 capsule 02/20/18 Hyoscyamine Odt [Levsin Odt -] 0.125 mg PO TID PRN #12 tab.rapdis 02/20/18 Diltiazem Cd [Cardizem Cd -] 120 mg PO BID #60 cap.cd.24h 02/22/18 Review of Systems - Review of Systems Able to Perform ROS?: Yes Comments:: CONSTITUTIONAL: Absent: fever, chills, diaphoresis, generalized weakness, malaise, loss of appetite HEENT: (+) Neck pain. Absent: rhinorrhea, nasal congestion, throat pain, throat swelling, difficulty swallowing, mouth swelling, ear pain, eye pain, visual Changes CARDIOVASCULAR: Absent: chest pain, syncope, palpitations, irregular heart rate, lightheadedness , peripheral edema RESPIRATORY: (+) SOB upon exertion. Absent: cough, dyspnea with exertion, orthopnea, wheezing, stridor, hemoptysis GASTROINTESTINAL: Absent: abdominal pain, abdominal distension, nausea, vomiting, diarrhea, constipation, melena, hematochezia GENITOURINARY: Absent: dysuria, frequency, urgency, hesitancy, hematuria, flank pain, genital pain MUSCULOSKELETAL: Absent: myalgia, arthralgia, joint swelling SKIN: Absent: rash, itching, pallor HEMATOLOGIC/IMMUNOLOGIC: Absent: easy bleeding, easy bruising, lymphadenopathy, frequent infections ENDOCRINE: Absent: unexplained weight gain, unexplained weight loss, heat intolerance, cold intolerance NEUROLOGIC: Absent: headache, focal weakness or paresthesias, dizziness, unsteady gait, seizure, mental status changes, bladder or bowel incontinence PSYCHIATRIC: Absent: anxiety, depression, suicidal or homicidal ideation, hallucinations. 03/01/18 16:25 <Geetha Lawson - Last Filed: 03/01/18 16:32> *Physical Exam - Vital Signs Last Vital Signs Temp Pulse Resp BP Pulse Ox 97.8 F 84 24 122/54 100 03/01/18 15:22 03/01/18 15:22 03/01/18 15:22 03/01/18 15:22 03/01/18 15:22 <Ben Vargas S - Last Filed: 03/01/18 16:00> - Vital Signs Last Vital Signs Temp Pulse Resp BP Pulse Ox 97.8 F 84 24 122/54 100 03/01/18 15:22 03/01/18 15:22 03/01/18 15:22 03/01/18 15:22 03/01/18 15:22 - Physical Exam Comments: GENERAL: Well developed, well nourished. Awake and alert. No acute distress. HEENT: Normocephalic, atraumatic. PERRLA, EOMI. No conjunctival pallor. Sclera are non- icteric. Moist mucous membranes. Oropharynx is clear. NECK: Supple. Full ROM. No JVD. Carotid pulses 2+ and symmetric, without bruits. No thyromegaly. No lymphadenopathy. CARDIOVASCULAR: Regular rate and rhythm. No murmurs, rubs, or gallops. Distal pulses are 2+ and symmetric. PULMONARY: (+) Few crackles on the bases of both lungs. No evidence of respiratory distress. No wheezing, rales or rhonchi. ABDOMINAL: (+) Mild abdominal distention. Soft. Non-tender. No rebound or guarding. No organomegaly. Normoactive bowel sounds. MUSCULOSKELETAL Normal range of motion at all joints. No bony deformities or tenderness. No CVA tenderness. EXTREMITIES: (+) Pitting Edema 2/6 mainly on the left leg. No cyanosis. No clubbing. No calf tenderness. SKIN: Warm and dry. Normal capillary refill. No rashes. No jaundice. NEUROLOGICAL: Alert, awake, appropriate. Cranial nerves 2-12 intact. No deficits to light touch and temperature in face, upper extremities and lower extremities. No motor deficits in the in face, upper extremities and lower extremities. Normoreflexic in the upper and lower extremities. Normal speech. Toes are down- going bilaterally. Gait is normal without ataxia. PSYCHIATRIC: Cooperative. Good eye contact. Appropriate mood and affect. 03/01/18 16:20 <Geetha Lawson - Last Filed: 03/01/18 16:32> ED Treatment Course - Medications Given in the ED: ED Medications Discontinued Medications Generic Name Dose Route Start Last Admin Trade Name Freq PRN Reason Stop Dose Admin Cyclobenzaprine HCl 10 mg 03/01/18 16:03 03/01/18 16:10 Flexeril - PO 03/01/18 16:04 10 mg ONCE ONE Administration Furosemide 20 mg 03/01/18 16:02 03/01/18 16:10 Lasix - PO 03/01/18 16:03 20 mg ONCE ONE Administration <Geetha Lawson - Last Filed: 03/01/18 16:32> Medical Decision Making - Medical Decision Making Discussed with Dr. Jean Baptiste, and the patient will follow up in his office. 03/01/18 16:21 <Geetha Lawson - Last Filed: 03/01/18 16:32> *DC/Admit/Observation/Transfer - Discharge Dispostion Admit: No <Ben Vargas - Last Filed: 03/01/18 16:00> - Attestations Scribe Attestion: 03/01/18 16:25 Documentation prepared by Geetha Lawson, acting as medical records receptionist for Bne Vargas MD. <Geetha Lawson - Last Filed: 03/01/18 16:32> Diagnosis at time of Disposition: Leg edema, Muscle strain - Discharge Dispostion Disposition: HOME Condition at time of disposition: Stable - Referrals Referrals: Matheus Jean Baptiste MD [Staff Physician] - - Patient Instructions Printed Discharge Instructions: DI for Peripheral Edema -- Bilateral Additional Instructions: Avoid adding salt in the food. Call Dr Jean Baptiste for follow up
[2018-03-01] MEDS ORDERED: CYCLOBENZAPRINE HCL 10 MG TABLET (FP) ONE (16:07)
[2018-03-01] MEDS ORDERED: FUROSEMIDE 40 MG TABLET (FP) ONE (16:07)
[2018-03-01 16:22] VITALS: BP 103/53; PULSE 85
--- NOTE | 2018-03-06 12:38 | EKG ---
Test Reason : Blood Pressure : / mmHG Vent. Rate : 087 BPM Atrial Rate : 087 BPM P-R Int : 154 ms QRS Dur : 092 ms QT Int : 380 ms P-R-T Axes : 019 -32 021 degrees QTc Int : 457 ms NORMAL SINUS RHYTHM LEFT AXIS DEVIATION ABNORMAL ECG WHEN COMPARED WITH ECG OF 22-FEB-2018 12:04, SINUS RHYTHM HAS REPLACED ATRIAL FLUTTER Confirmed by MARTHA DOMINGUEZ MD ([id number]) on 03/06/2018 12:38:21 PM Referred By: MD DELEON Confirmed By:MARTHA DOMINGUEZ MD
== END 2018-03-01 16:24 | disposition home or self-care (01) ==
LOC: FER 15:21
DX: M79.89 Other specified soft tissue disorders (principal); T14.8XXA Other injury of unspecified body region, initial encounter; X58.XXXA Exposure to other specified factors, initial encounter; Y93.89 Activity, other specified; Y92.9 Unspecified place or not applicable; I48.91 Unspecified atrial fibrillation; I10 Essential (primary) hypertension; E78.5 Hyperlipidemia, unspecified; K21.9 Gastro-esophageal reflux disease without esophagitis; F41.9 Anxiety disorder, unspecified; E78.00 Pure hypercholesterolemia, unspecified
CPT/HCPCS: 93005; 99282-25

== ENCOUNTER 2018-03-20 13:35 | Emergency (ER) | payer OTHER ==
[2018-03-20 13:46] VITALS: BP 153/76; PULSE 72; TEMP 98.1; BMI 22.4
--- NOTE | 2018-03-20 14:19 | PDOC ---
History of Present Illness - General History Source: Patient Exam Limitations: No Limitations - History of Present Illness Initial Comments: 03/20/18 15:20 The patient is 72 year old male presents to the emergency department complaining of bilateral swollen legs. The patient reports having cataract surgery last month and post surgery they noticed he had elevated heart rate of 140. The patient reports going to Dr. East, who kept changing his medications , changed the water pills due to decreased sodium and potassium levels. The patient reports hes currently on a low dose water pill which is causing him to have swollen lower extremities. The patient reports prolonged standing on his feet at work. The patient reports he has an appointment with his cross tie turner this coming Tuesday. Past Medical History: GERD, Elevated blood pressure, CHF, Elevated Cholesterol, Dyspepsia, Afib. Social History: None reported Allergies: None reported PCP: Dr. East (Tool Clerk). PCP: Dr. Matheus Richard (Primary) <Geetha Lawson - Last Filed: 03/20/18 15:45> <Tyrone Lucio - Last Filed: 03/20/18 15:58> - General Chief Complaint: Edema Stated Complaint: PERSISTENT EDEMA BOTH LEGS Time Seen by Provider: 03/20/18 14:12 Past History <Geetha Lawson - Last Filed: 03/20/18 15:45> - Past Medical History Anemia: No Asthma: Yes Cancer: No Cardiac Disorders: Yes (A FIB) CVA: No COPD: Yes CHF: No DVT: No Dementia: No Diabetes: No GI Disorders: Yes (GERD, gastritis) Disorders: No HTN: Yes Hypercholesterolemia: Yes Liver Disease: No Psychiatric Problems: Yes (ANXIETY) Seizures: No Thyroid Disease: No - Surgical History Abdominal Surgery: No Appendectomy: No Cardiac Surgery: No Cholecystectomy: Yes Lung Surgery: No Neurologic Surgery: No Orthopedic Surgery: Yes (DEMETRICE SHOULDER ARTHROSCOPIES) - Immunization History Td Vaccination: Yes Immunization Up to Date: Yes - Suicide/Smoking/Psychosocial Hx Smoking Status: No Smoking History: Former smoker Have you smoked in the past 12 months: No Number of Cigarettes Smoked Daily: 0 If you are a former smoker, when did you quit?: 1990s Cigars Per Day: 0 Information on smoking cessation initiated: No Hx Alcohol Use: Yes (WINE) Drug/Substance Use Hx: No Substance Use Type: Alcohol Hx Substance Use Treatment: No <Tyrone Lucio - Last Filed: 03/20/18 15:58> - Past Medical History Allergies/Adverse Reactions: Allergies Allergy/AdvReac Type Severity Reaction Status Date / Time No Known Drug Allergies Allergy Mild Verified 03/20/18 13:38 Home Medications: Ambulatory Orders Cholecalciferol (Vitamin D3) [Vitamin D] 1,000 unit PO BID 09/23/13 Lorazepam 0.5 mg PO 5XD 09/23/13 Niacin [Niaspan] 1,000 mg PO HS 09/23/13 Simvastatin [Zocor -] 20 mg PO HS 09/23/13 Valsartan [Diovan] 160 mg PO DAILY 09/23/13 Apixaban [Eliquis -] 5 mg PO BID #60 tablet 02/02/18 Bupropion HCl [Wellbutrin -] 150 mg PO TID #90 tablet 02/04/18 Fluticasone/Salmeterol [Advair Hfa 45-21 Mcg Inhaler] 2 inh PO BID 02/13/18 Pantoprazole Sodium [Protonix -] 40 mg PO BID #14 tablet.ec 02/18/18 Sucralfate [Carafate -] 1 gm PO BID #60 tablet 02/18/18 Docusate Sodium [Colace -] 100 mg PO BID #14 capsule 02/20/18 Hyoscyamine Odt [Levsin Odt -] 0.125 mg PO TID PRN #12 tab.rapdis 02/20/18 Furosemide 20 mg PO DAILY 03/20/18 Metoprolol Succinate [Toprol Xl] 50 mg PO BID 03/20/18 Review of Systems - Review of Systems Able to Perform ROS?: Yes Comments:: 03/20/18 15:17 Review of System: CONSTITUTIONAL: Absent: fever, no chills, no fatigue EYES: Absent: visual changes ENT: Absent: ear pain, no sore throat CARDIOVASCULAR: Absent: chest pain, no palpitations RESPIRATORY: Absent: cough, no SOB GI: Absent: abdominal pain, no nausea, no vomiting, no constipation, no diarrhea GENITOURINARY: Absent: dysuria, no frequency, no hematuria MUSKULOSKELETAL: (+) Bilateral lower extremity swelling Absent: back pain, no arthralgia, no myalgia SKIN: Absent: rash NEURO: Absent: headache <RennyGeetha - Last Filed: 03/20/18 15:45> *Physical Exam - Vital Signs Last Vital Signs Temp Pulse Resp BP Pulse Ox 98.1 F 72 18 153/76 98 03/20/18 13:35 03/20/18 13:35 03/20/18 13:35 03/20/18 13:35 03/20/18 13:35 - Physical Exam Comments: 03/20/18 15:45 GENERAL: Well-appearing, well-nourished. No apparent distress. HEENT: Normocephalic, atraumatic. PERRL, EOM intact. CARDIOVASCULAR: (+) 2/6 Cardiac systolic murmur in the aortic area. (+) Irregularly irregular w/ 68 BPM. Normal S1, S2. Regular rate and rhythm. PULMONARY: (+) No Rales Clear to auscultation bilaterally. ABDOMEN: No organomegaly Soft, non-distended, non-tender. EXTREMITIES: (+) 1+ pedal edema both feet. (+) no posterior calf swelling or tenderness, No edema to the ankle or the calf. (+) Pulse full and symmetric, Toes: Warm w/ no sensory deifcit. Normal ROM in all four extremities. No gross deformities. SKIN: Warm, dry. No rash NEUROLOGICAL: No focal neurological deficits. <Geetha Lawson - Last Filed: 03/20/18 15:45> - Vital Signs Last Vital Signs Temp Pulse Resp BP Pulse Ox 98.1 F 72 18 153/76 98 03/20/18 13:35 03/20/18 13:35 03/20/18 13:35 03/20/18 13:35 03/20/18 13:35 <Tyrone Lucio - Last Filed: 03/20/18 15:58> Medical Decision Making - Medical Decision Making 03/20/18 15:56 Patient's lungs are clear and there is no sign of CHF other than peeled edema, which may also be of a deep ended nature due to venous insufficiency. Patient does admit that the edema resolves with recumbency, and that he spends over 12 hours a day on his feet, which aggravates his swelling. There is been no chest pain or other sign of cardiac decompensation. His heart rate is maintained at an acceptable level. He is on anticoagulation for atrial fibrillation. There is no edema extending up to the ankles or calves. There is no posterior calf swelling or tenderness. There are no rales or other sign of pulmonary congestion The patient is encouraged to continue medication as prescribed by his primary physician and cross tie turner. Recently discontinued was diltiazem, which should improve the lower extremity swelling. He has also been prescribed furosemide. He is discharged completely ambulatory, in no pain or other distress, with his to follow-up as directed <Tyrone Lucio - Last Filed: 03/20/18 15:58> *DC/Admit/Observation/Transfer - Attestations Scribe Attestion: 03/20/18 15:45 Documentation prepared by Geetha Lawson, acting as medical imaging tech for Tyrone Lucio MD. <Geetha Lawson - Last Filed: 03/20/18 15:45> - Discharge Dispostion Admit: No <Tyrone Lucio - Last Filed: 03/20/18 15:58> Diagnosis at time of Disposition: CHF (congestive heart failure) Qualifiers: Heart failure type: combined systolic and diastolic Heart failure chronicity: chronic Qualified Code(s): I50.42 - Chronic combined systolic (congestive) and diastolic (congestive) heart failure - Discharge Dispostion Disposition: HOME Condition at time of disposition: Stable - Referrals Referrals: Matheus Jean Baptiste MD [Primary Care Provider] - - Patient Instructions Printed Discharge Instructions: DI for Dependent Edema Additional Instructions: Take your heart medications as prescribed by your doctor's Avoid prolonged standing and walking, elevating the legs periodically to minimize swelling Consider getting measured for support stockings if you must be on your feet for long hours at a job. - Post Discharge Activity
== END 2018-03-20 15:10 | disposition home or self-care (01) ==
LOC: FER 13:35
DX: I50.42 Chronic combined systolic (congestive) and diastolic (congestive) heart failure (principal); I48.91 Unspecified atrial fibrillation; J44.9 Chronic obstructive pulmonary disease, unspecified; I10 Essential (primary) hypertension; E78.00 Pure hypercholesterolemia, unspecified; K21.9 Gastro-esophageal reflux disease without esophagitis
CPT/HCPCS: 99283-25

== ENCOUNTER 2018-09-30 05:10 | Inpatient (IN) | payer OTHER ==
--- NOTE | 2018-09-30 05:13 | PDOC ---
History of Present Illness - General Chief Complaint: Cold Symptoms Stated Complaint: SORE THROAT/COUGH/HEADACHE - History of Present Illness Initial Comments: 09/30/18 05:31 This 73-year-old man with a history of HTN/afib/HLD/GERD/COPD/anxiety presents with 2 day history of intermittent sore throat and excessive "burping" followed by one day history of nonproductive cough. Overnight, cough became more prominent and patient had intermittent wheezing. Just prior to presentation, he began to have shaking chills. No measured fever. Patient had one episode of vomiting after excessive coughing overnight but has no nausea/abdominal pain/ diarrhea. History of pneumonia in 2010 but denies frequent chest colds/ bronchitis. Patient has not smoked in 30+ years. No recent febrile illness; patient states that he has been taking his medications as prescribed. Last saw his PMD (Lizbet) in July and no changes were made to his medications at that point. Pt received influenza immunization. Unclear if he has received pneumococcal immunization. No recent travel Past History - Past Medical History Allergies/Adverse Reactions: Allergies Allergy/AdvReac Type Severity Reaction Status Date / Time No Known Drug Allergies Allergy Mild Verified 03/20/18 13:38 Home Medications: Ambulatory Orders Cholecalciferol (Vitamin D3) [Vitamin D] 1,000 unit PO BID 09/23/13 Lorazepam 1 mg PO TID 09/23/13 Niacin [Niaspan] 500 mg PO HS 09/23/13 Simvastatin [Zocor -] 20 mg PO HS 09/23/13 Apixaban [Eliquis -] 5 mg PO BID #60 tablet 02/02/18 Fluticasone/Salmeterol [Advair Hfa 45-21 Mcg Inhaler] 2 inh PO BID 02/13/18 Furosemide 20 mg PO DAILY 03/20/18 Metoprolol Succinate [Toprol Xl] 50 mg PO BID 03/20/18 Bupropion HCl [Wellbutrin -] 150 mg PO TID 09/30/18 Fluticasone Propionate [Flovent Diskus] 100 mcg IH BID 09/30/18 Omeprazole 40 mg PO DAILY 09/30/18 Potassium Chloride [Klor-Con 8] 24 meq PO BID 09/30/18 Losartan Potassium [Cozaar] 100 mg PO DAILY 10/01/18 Anemia: No Asthma: Yes Cancer: No Cardiac Disorders: Yes (A FIB) CVA: No COPD: Yes CHF: No DVT: No Dementia: No Diabetes: No GI Disorders: Yes (GERD, gastritis) Disorders: No HTN: Yes Hypercholesterolemia: Yes Liver Disease: No Psychiatric Problems: Yes (ANXIETY) Seizures: No Thyroid Disease: No - Surgical History Abdominal Surgery: No Appendectomy: No Cardiac Surgery: No Cholecystectomy: Yes Lung Surgery: No Neurologic Surgery: No Orthopedic Surgery: Yes (DEMETRICE SHOULDER ARTHROSCOPIES) - Immunization History Td Vaccination: Yes Immunization Up to Date: Yes - Suicide/Smoking/Psychosocial Hx Smoking Status: No Smoking History: Former smoker Have you smoked in the past 12 months: No Number of Cigarettes Smoked Daily: 0 If you are a former smoker, when did you quit?: 1990s Cigars Per Day: 0 Hx Alcohol Use: Yes (WINE) Drug/Substance Use Hx: No Substance Use Type: Alcohol Hx Substance Use Treatment: No Review of Systems - Review of Systems Able to Perform ROS?: Yes Comments:: 12 point review of systems is negative except for what is noted in the history of present illness *Physical Exam - Physical Exam Comments: GENERAL: Elderly man, alert and oriented 3, in mild distress secondary to frequent coughing Vital signs: T 101.2F (oral), HR 102/ min, 147/76, 93%RA HEAD: Normal with no signs of trauma. EYES: PERRLA, EOMI, sclera anicteric, conjunctiva clear. ENT: Ears normal, nares patent, oropharynx clear without exudates. Dry mucous membranes. NECK: Normal range of motion, supple without lymphadenopathy, JVD, or masses. LUNGS: Inspiratory fine rhonchi and crackles bilateral bases. Rhonchi also heard jail up on the left side scattered bilateral expiratory wheezing HEART:Regular rate and rhythm, normal S1 and S2 without murmur, rub or gallop. ABDOMEN:.normal bowel sounds No guarding,tenderness or rebound.No masses No distention. EXTREMITIES: Normal range of motion. No clubbing or cyanosis. No erythema, or tenderness. Trace ankle edema bilaterally NEUROLOGICAL: Cranial nerves II through XII grossly intact. Normal speech. No focal neurological deficits. MUSCULOSKELETAL: Back non-tender to palpation, no CVA tenderness SKIN: Warm, Dry, normal turgor, no rashes or lesions noted. ED Treatment Course - LABORATORY CBC & Chemistry Diagram: 10/01/18 08:00 10/01/18 08:00 Medical Decision Making - Medical Decision Making 09/30/18 06:03 This 73-year-old man with a history of hypertension/COPD/A. fib among other medical problems presents with 1 day history of progressive cough and overnight wheezing/shaking chills. Exam notable for oral temperature of 101.2F, pulse oximetry 93% on room air, heart rate of 102/min with rhonchi/wheezing bilaterally (left greater than right). Patient has received DuoNeb treatment with improvement in auscultatory exam; patient also feels breathing is easier. O2 at 2 L nasal cannula started Laboratory evaluation including CBC/chemistry/troponin/UA /lactic acid/blood culture/rapid influenza sent Normal saline 250 mL/hr Portable chest x-ray/EKG pending 09/30/18 06:17 12-lead electrocardiogram performed: Preliminary interpretation-normal sinus rhythm at 94 bpm; axis, intervals and wave forms are all normal. No evidence of acute ST or T-wave abnormalities. No evidence of acute cardiac arrhythmia. 09/30/18 06:36 pCXR performed: left sided pneumonia(lingular ; possible TANYA) 09/30/18 06:48 CBC reveals normal WBC(9,500) but left shift(83%neut/8%bands) Case briefly described to LUZ Garner : will inform day shift staff of probable admission in ER 09/30/18 07:11 Case signed out to Dr Yap at end of shift *DC/Admit/Observation/Transfer Diagnosis at time of Disposition: COPD (chronic obstructive pulmonary disease), Pneumonia - Discharge Dispostion Condition at time of disposition: Stable - Referrals - Patient Instructions - Post Discharge Activity
[2018-09-30] MEDS ORDERED: ALBUTEROL SO4 2.5/IPRATROPIUM 0.5 INH SOL 3 ML VIAL.NEB. NEB ONE ×7 (05:41→08:36)
[2018-09-30] MEDS ORDERED: ACETAMINOPHEN 325 MG TABLET (FP) ONE (05:42)
[2018-09-30] MEDS ORDERED: ACETAMINOPHEN 325 MG TABLET (FP) PO ONE (05:52)
[2018-09-30] MEDS ORDERED: SODIUM CHLORIDE 1,000 ML IV SCH (06:15)
[2018-09-30] MEDS ORDERED: methylPREDNISolone NA SUCC 40 MG/1 ML VIAL IVPUSH ONE (06:28)
[2018-09-30] MEDS ORDERED: CEFTRIAXONE 1 GM in DEXTROSE 5%-WATER - 100 ML IVPB ONE (06:32)
[2018-09-30] MEDS ORDERED: methylPREDNISolone NA SUCC 40 MG/1 ML VIAL ONE (06:33)
[2018-09-30] MEDS ORDERED: AZITHROMYCIN IVPB 500 MG in DEXTROSE 5%-WATER - 250 ML IVPB ONE (06:33)
[2018-09-30] MEDS ORDERED: cefTRIAXone SODIUM 1 GM VIAL ONE (06:34)
[2018-09-30] MEDS ORDERED: AZITHROMYCIN 500 MG VIAL IVPB ONE (06:34)
[2018-09-30 06:36] LABS: BASO % 0.4 % (0-2.0); HEMATOCRIT 33.6 % (35.4-49); HEMOGLOBIN 11.5 GM/dL (11.7-16.9); LYMPH % 7.5 % (8-40); MCH 31.1 pg (25.7-33.7); MCHC 34.3 g/dl (32.0-35.9); MEAN CELL VOLUME 90.7 fl (80-96); MEAN PLT VOLUME 9.5 fl (7.5-11.1); NEUT % 83.1 % (42.8-82.8); PLATELET COUNT 160 K/MM3 (134-434); RBC 3.71 M/mm3 (4.00-5.60); RDW 13.4 % (11.9-15.9); WHITE BLOOD COUNT 9.5 K/mm3 (4.0-10.0)
[2018-09-30 06:40] LABS: URINE APPEARANCE CLEAR; URINE BILIRUBIN NEGATIVE (<2.0 mg/dL); URINE COLOR STRAW; URINE GLUCOSE (UA) NEGATIVE (NEGATIVE); URINE KETONE NEGATIVE (NEGATIVE); URINE LEUK ESTERASE NEGATIVE (NEGATIVE); URINE NITRITE NEGATIVE (NEGATIVE); URINE PROTEIN 1+ (NEGATIVE); URINE UROBILINOGEN NEGATIVE mg/dL (0.2-1.0)
[2018-09-30 06:50] LABS: INR 1.32 (0.83-1.09); PROTHROMBIN TIME (PATIENT) 15.6 SEC (9.7-13.0)
[2018-09-30 07:04] LABS: ALBUMIN 3.4 g/dl (3.4-5.0); ALK PHOS 66 U/L (45-117); ANION GAP 12 MMOL/L (8-16); BILIRUBIN,TOTAL 0.3 mg/dL (0.2-1); BLOOD UREA NITROGEN 27 mg/dL (7-18); CALCIUM 8.1 mg/dL (8.5-10.1); CHLORIDE 102 mmol/L (98-107); CO2 22 mmol/L (21-32); CREATININE 1.4 mg/dL (0.55-1.3); GLUCOSE,RANDOM 95 mg/dL (74-106); POTASSIUM 4.4 mmol/L (3.5-5.1); SGOT/AST 20 U/L (15-37); SGPT/ALT 25 U/L (13-61); SODIUM 135 mmol/L (136-145); TOT PROT 6.8 g/dl (6.4-8.2)
--- NOTE | 2018-09-30 07:50 | PDOC ---
*Physical Exam - Vital Signs Last Vital Signs Temp Pulse Resp BP Pulse Ox 100 F H 90 26 H 147/73 96 09/30/18 07:04 09/30/18 07:04 09/30/18 07:04 09/30/18 07:04 09/30/18 07:04 - Physical Exam General Appearance: Yes: Nourished Respiratory/Chest: positive: Crackles, Wheezing, Other (bilat congested lung sounds, rhonchi) Cardiovascular: positive: Regular Rhythm, Regular Rate Extremity: positive: Normal Inspection Integumentary: positive: Normal Color, Dry, Warm Neurologic: positive: Fully Oriented, Alert, Normal Mood/Affect Heart Score/ECG Review #1 General ECG Interpretation: Sinus Rhythm, Normal Rate (94), Normal Intervals, No acute ischemic changes ED Treatment Course - LABORATORY CBC & Chemistry Diagram: 09/30/18 05:50 09/30/18 05:45 - ADDITIONAL ORDERS Additional order review: Laboratory Results 09/30/18 09/30/18 09/30/18 06:00 05:50 05:45 PT with INR 15.60 H INR 1.32 H Sodium 135 L Potassium 4.4 Chloride 102 Carbon Dioxide 22 Anion Gap 12 BUN 27 H Creatinine 1.4 H Creat Clearance w eGFR 49.41 Random Glucose 95 Calcium 8.1 L Total Bilirubin 0.3 AST 20 ALT 25 Alkaline Phosphatase 66 Creatine Kinase 220 Troponin I < 0.02 Total Protein 6.8 Albumin 3.4 Urine Color Straw Urine Appearance Clear Urine pH 5.0 Ur Specific [place] 1.013 Urine Protein 1+ H Urine Glucose (UA) Negative Urine Ketones Negative Urine Blood Negative Urine Nitrite Negative Urine Bilirubin Negative Urine Urobilinogen Negative Ur Leukocyte Esterase Negative Urine WBC (Auto) <1 Urine RBC (Auto) 1 09/30/18 05:50 Influenza Types A,B Antigen - Final Nasopharyngeal Swab - Final 09/30/18 05:50 RBC 3.71 L MCV 90.7 MCHC 34.3 RDW 13.4 MPV 9.5 Neutrophils % 83.1 H D Lymphocytes % 7.5 L D Monocytes % 7.0 Eosinophils % 2.0 Basophils % 0.4 - Medications Given in the ED: ED Medications Discontinued Medications Generic Name Dose Route Start Last Admin Trade Name Freq PRN Reason Stop Dose Admin Acetaminophen 650 mg 09/30/18 05:52 09/30/18 06:03 Tylenol - PO 09/30/18 05:53 650 mg ONCE ONE Administration Albuterol/Ipratropium 1 amp 09/30/18 05:41 09/30/18 06:03 Duoneb - NEB 09/30/18 05:42 1 amp ONCE ONE Administration Azithromycin 500 mg/ Dextrose 250 mls @ 250 mls/hr 09/30/18 06:33 09/30/18 06 :47 IVPB 09/30/18 07:32 250 mls/hr ONCE ONE Administration Methylprednisolone Sodium Succinate 80 mg 09/30/18 06:28 09/30/18 06:47 Solu-Medrol - IVPUSH 09/30/18 06:29 80 mg ONCE ONE Administration Medical Decision Making - Medical Decision Making 09/30/18 07:47 73 yo M h/o afib, htn copd here with cough congestion wheezing sob and fever/ chills. awaiting labs . pt signed out to me by prior dr. Traore. labs reviewed, normal wbc, left shift. xray with patchy infiltrate left lung. pt given ceftriaxone and azithromycin. will admit to [facility]. admitting team paged. awaiting call back. given duoneb, sats improved. oxygen 95% on 2L NC. *DC/Admit/Observation/Transfer Diagnosis at time of Disposition: COPD (chronic obstructive pulmonary disease), Pneumonia - Discharge Dispostion Condition at time of disposition: Stable Decision to Admit order: Yes - Referrals Referrals: Matheus Jean Baptiste MD [Primary Care Provider] - - Patient Instructions - Post Discharge Activity
[2018-09-30] MEDS ORDERED: SODIUM CHLORIDE 0.9% 1000 ML INFUS.BAG IV ONE (07:53)
[2018-09-30 10:50] VITALS: BMI 22.8
--- NOTE | 2018-09-30 11:47 | HP ---
CHIEF COMPLAINT: Cough, shaking chills PCP: Dr. Jean Baptiste HISTORY OF PRESENT ILLNESS: 73 year-old male with a PMH significant for HTN, HLD, afib, asthma/COPD, GERD, and anxiety. Presents to the ED with a complaint of cough x 1 day. Went to bed last night and awoke in the early hours of this morning with worsening cough, wheezing, and shaking chills. Quit smoking 25 years ago, does not have recurrent pneumonias or bronchitis. Has been using an inhaler prescribed by his PCP for years, no hospitalizations for asthma/COPD exacerbations, no previous steroids. Denies nausea, vomiting, diarrhea. No sick contacts. ER course was notable for: (1) T101.2, p 102, RR 26, lactic acid 2.2 (2) CXR: left infiltrate (3) SoluMedrol 80mg x 1; duonebs; azithro x 1; ceftriaxone x 1; NS x 1L Recent Travel: No PAST MEDICAL HISTORY: Hypertension Hyperlipidemia Atrial fibrillation Asthma/COPD GERD Anxiety PAST SURGICAL HISTORY: Cholecystectomy Bilateral shoulder arthroscopies Bilateral cataracts Social History: [place], lives with and son Smoking: quit 25 years ago Alcohol: 2 glasses of wine with dinner Drugs: no Family History: Allergies No Known Drug Allergies Allergy (Mild, Verified 03/20/18 13:38) HOME MEDICATIONS: Home Medications Medication Instructions Recorded Cholecalciferol (Vitamin D3) 1,000 unit PO BID 09/23/13 [Vitamin D] Lorazepam 0.5 mg PO TID 09/23/13 Niacin [Niaspan] 500 mg PO HS 09/23/13 Simvastatin [Zocor -] 20 mg PO HS 09/23/13 Valsartan [Diovan] 160 mg PO DAILY 09/23/13 Apixaban [Eliquis -] 5 mg PO BID #60 tablet 02/02/18 Fluticasone/Salmeterol [Advair Hfa 2 inh PO BID 02/13/18 45-21 Mcg Inhaler] Furosemide 20 mg PO DAILY 03/20/18 Metoprolol Succinate [Toprol Xl] 50 mg PO BID 03/20/18 Bupropion HCl [Wellbutrin -] 75 mg PO TID 09/30/18 Omeprazole 20 mg PO DAILY 09/30/18 Potassium Chloride [Klor-Con 8] 8 meq PO TID 09/30/18 REVIEW OF SYSTEMS CONSTITUTIONAL: +fever, chills Absent: diaphoresis, generalized weakness, malaise, loss of appetite, weight change HEENT: Absent: rhinorrhea, nasal congestion, throat pain, throat swelling, difficulty swallowing, mouth swelling, ear pain, eye pain, visual changes CARDIOVASCULAR: Absent: chest pain, syncope, palpitations, irregular heart rate, lightheadedness , peripheral edema RESPIRATORY: +cough, SOB, wheezing Absent: dyspnea with exertion, orthopnea, stridor, hemoptysis GASTROINTESTINAL: Absent: abdominal pain, abdominal distension, nausea, vomiting, diarrhea, constipation, melena, hematochezia GENITOURINARY: Absent: dysuria, frequency, urgency, hesitancy, hematuria, flank pain, genital pain MUSCULOSKELETAL: Absent: myalgia, arthralgia, joint swelling, back pain, neck pain SKIN: Absent: rash, itching, pallor HEMATOLOGIC/IMMUNOLOGIC: Absent: easy bleeding, easy bruising, lymphadenopathy, frequent infections ENDOCRINE: Absent: unexplained weight gain, unexplained weight loss, heat intolerance, cold intolerance NEUROLOGIC: +headache Absent: focal weakness or paresthesias, dizziness, unsteady gait, seizure, mental status changes, bladder or bowel incontinence PSYCHIATRIC: Absent: anxiety, depression, suicidal or homicidal ideation, hallucinations. PHYSICAL EXAMINATION Vital Signs - 24 hr 09/30/18 09/30/18 09/30/18 05:11 06:29 07:04 Temperature 101.2 F H 100 F H Pulse Rate 102 H Pulse Rate [ 93 H 90 Apical] Respiratory 20 20 26 H Rate Blood Pressure 147/76 Blood Pressure 147/73 147/73 [Arm] O2 Sat by Pulse 94 L 94 L 96 Oximetry (%) 09/30/18 09/30/18 09:03 10:32 Temperature 98.5 F 99 F Pulse Rate 102 H Pulse Rate [ 95 H Apical] Respiratory 24 H 22 H Rate Blood Pressure 140/70 Blood Pressure 130/67 [Arm] O2 Sat by Pulse 96 94 L Oximetry (%) GENERAL: Awake, alert, and fully oriented, in no acute distress. HEAD: Normal with no signs of trauma. EYES: Pupils equal, round and reactive to light, extraocular movements intact, sclera anicteric, conjunctiva clear. No lid lag. EARS, NOSE, THROAT: Ears normal, nares patent, oropharynx clear without exudates. Moist mucous membranes. NECK: Normal range of motion, supple without lymphadenopathy, JVD, or masses. LUNGS: End expiratory wheezing throughout, diffuse coarse crackles, diminished breath sounds on right HEART: Regular rate and rhythm, S1 and S2 ABDOMEN: Soft, nontender, not distended MUSCULOSKELETAL: Normal range of motion at all joints. No bony deformities or tenderness. No CVA tenderness. UPPER EXTREMITIES: 2+ pulses, warm, well-perfused. No cyanosis. No clubbing. No peripheral edema. LOWER EXTREMITIES: 2+ pulses, warm, well-perfused. No calf tenderness. No peripheral edema. No calf tenderness NEUROLOGICAL: Cranial nerves II-XII intact. Normal speech. Moves all extremities freely. Self-positions easily. PSYCHIATRIC: Cooperative. Good eye contact. Appropriate mood and affect. SKIN: Warm, dry, normal turgor Laboratory Results - last 24 hr 09/30/18 09/30/18 09/30/18 05:45 05:50 05:50 WBC 9.5 RBC 3.71 L Hgb 11.5 L Hct 33.6 L MCV 90.7 MCH 31.1 MCHC 34.3 RDW 13.4 Plt Count 160 MPV 9.5 Absolute Neuts (auto) 7.9 Neutrophils % 83.1 H D Lymphocytes % 7.5 L D Monocytes % 7.0 Eosinophils % 2.0 Basophils % 0.4 Nucleated RBC % 0 PT with INR INR Sodium 135 L Potassium 4.4 Chloride 102 Carbon Dioxide 22 Anion Gap 12 BUN 27 H Creatinine 1.4 H Creat Clearance w eGFR 49.41 Random Glucose 95 Lactic Acid 2.2 H* Calcium 8.1 L Total Bilirubin 0.3 AST 20 ALT 25 Alkaline Phosphatase 66 Creatine Kinase 220 Creatine Kinase Index 0.9 CK-MB (CK-2) 2.1 Troponin I < 0.02 Total Protein 6.8 Albumin 3.4 Urine Color Urine Appearance Urine pH Ur Specific [place] Urine Protein Urine Glucose (UA) Urine Ketones Urine Blood Urine Nitrite Urine Bilirubin Urine Urobilinogen Ur Leukocyte Esterase Urine WBC (Auto) Urine RBC (Auto) 09/30/18 09/30/18 09/30/18 05:50 06:00 08:46 WBC RBC Hgb Hct MCV MCH MCHC RDW Plt Count MPV Absolute Neuts (auto) Neutrophils % Lymphocytes % Monocytes % Eosinophils % Basophils % Nucleated RBC % PT with INR 15.60 H INR 1.32 H Sodium Potassium Chloride Carbon Dioxide Anion Gap BUN Creatinine Creat Clearance w eGFR Random Glucose Lactic Acid 1.2 Calcium Total Bilirubin AST ALT Alkaline Phosphatase Creatine Kinase Creatine Kinase Index CK-MB (CK-2) Troponin I Total Protein Albumin Urine Color Straw Urine Appearance Clear Urine pH 5.0 Ur Specific [place] 1.013 Urine Protein 1+ H Urine Glucose (UA) Negative Urine Ketones Negative Urine Blood Negative Urine Nitrite Negative Urine Bilirubin Negative Urine Urobilinogen Negative Ur Leukocyte Esterase Negative Urine WBC (Auto) <1 Urine RBC (Auto) 1 ASSESSMENT/PLAN 73 year-old male with a PMH significant for HTN, HLD, CHF, afib, asthma/COPD, GERD, and anxiety. Admitted for severe sepsis secondary to pneumonia. Severe sepsis secondary to community acquired pneumonia --CT chest: extensive LLL and TANYA infiltrates; RLL infiltrates; very small left pleural effusion --continue ceftriaxone and azithromycin --1L fluids given in ED, will defer further fluids due to CHF and because BP presently stable; will monitor Asthma/COPD --dose IV steroids given in ED --start prednisone PO 40mg x 5 days --duonebs Hypertension --continue metoprolol --hold valsartan due elevated Cr 1.4 (baseline 1.0); if Cr trending down tomorrow, will restart Hyperlipidemia --atorvastatin 10mg equipotent dose to home simvastatin Atrial fibrillation --presently in sinus rhythm with good rate control on metoprolol --on Eliquis --ECG ordered --telemetry monitoring Anxiety --continue home dose bupropion, lorazepam FEN Fluids: PO intake adequate Electrolytes: replete as indicated Nutrition: low sodium DVT prophylaxis: on Eliquis Physical therapy Dispo: continues to require inpatient care. Full code. Visit type - Emergency Visit Emergency Visit: Yes ED Registration Date: 09/30/18 Care time: The patient presented to the Emergency Department on the above date and was hospitalized for further evaluation of their emergent condition. - New Patient This patient is new to me today: Yes Date on this admission: 10/01/18 - Critical Care Critical Care patient: No
[2018-09-30] MEDS ORDERED: ACETAMINOPHEN 325 MG TABLET (FP) PO PRN (11:50)
[2018-09-30] MEDS ORDERED: APIXABAN 5 MG TABLET PO SCH ×2 (12:45→22:00)
[2018-09-30] MEDS: ALBUTEROL SO4 2.5/IPRATROPIUM 0.5 INH SOL 3 ML VIAL.NEB. NEB SCH ×2 (12:46→20:04)
[2018-09-30] MEDS ORDERED: PT OWN MED DRAWER 7, Y5N ONE ×2 (12:49→13:45)
[2018-09-30] MEDS: APIXABAN 5 MG TABLET PO SCH ×2 (12:52→21:22)
[2018-09-30] MEDS ORDERED: buPROPion HCL 75 MG TABLET PO ONE (13:59)
[2018-09-30] MEDS ORDERED: buPROPion HCL 75 MG TABLET PO SCH (14:00)
[2018-09-30] MEDS ORDERED: LORazepam 0.5 MG TABLET PO SCH ×2 (14:00)
[2018-09-30] MEDS: buPROPion HCL 75 MG TABLET PO SCH ×2 (15:28→21:23)
[2018-09-30] MEDS: LORazepam 0.5 MG TABLET PO SCH (21:22)
[2018-09-30] MEDS: ATORVASTATIN CA 20 MG TABLET (FP) PO SCH (21:56)
[2018-10-01] MEDS ORDERED: PT OWN MED DRAWER 7, Y5N ONE ×2 (06:00→21:25)
[2018-10-01] MEDS: LORazepam 0.5 MG TABLET PO SCH ×5 (06:03→21:28)
[2018-10-01] MEDS: buPROPion HCL 75 MG TABLET PO SCH ×3 (06:03→21:28)
[2018-10-01] MEDS: ALBUTEROL SO4 2.5/IPRATROPIUM 0.5 INH SOL 3 ML VIAL.NEB. NEB SCH ×4 (08:44→20:24)
[2018-10-01] MEDS: PANTOPRAZOLE 40 MG TABLET (FP) PO SCH (09:18)
[2018-10-01] MEDS: predniSONE 20 MG TABLET (UD) PO SCH (09:18)
[2018-10-01] MEDS: APIXABAN 5 MG TABLET PO SCH ×2 (09:18→21:30)
[2018-10-01] MEDS: FUROSEMIDE 20 MG TABLET (FP) PO SCH (09:18)
[2018-10-01 09:29] LABS: BASO % 0.2 % (0-2.0); LYMPH % 6.2 % (8-40); MCH 31.7 pg (25.7-33.7); MCHC 34.7 g/dl (32.0-35.9); MEAN CELL VOLUME 91.5 fl (80-96); MEAN PLT VOLUME 9.6 fl (7.5-11.1); MONO % 6.1 % (3.8-10.2); NEUT % 87.5 % (42.8-82.8); PLATELET COUNT 139 K/MM3 (134-434); RBC 3.17 M/mm3 (4.00-5.60); RDW 12.8 % (11.9-15.9); WHITE BLOOD COUNT 9.8 K/mm3 (4.0-10.8)
--- NOTE | 2018-10-01 09:36 | HP ---
CHIEF COMPLAINT: PCP: HISTORY OF PRESENT ILLNESS: ER course was notable for: (1) (2) (3) Recent Travel: PAST MEDICAL HISTORY: PAST SURGICAL HISTORY: Social History: Smoking: Alcohol: Drugs: Family History: Allergies No Known Drug Allergies Allergy (Mild, Verified 03/20/18 13:38) HOME MEDICATIONS: Home Medications Medication Instructions Recorded Cholecalciferol (Vitamin D3) 1,000 unit PO BID 09/23/13 [Vitamin D] Lorazepam 1 mg PO TID 09/23/13 Niacin [Niaspan] 500 mg PO HS 09/23/13 Simvastatin [Zocor -] 20 mg PO HS 09/23/13 Valsartan [Diovan] 160 mg PO DAILY 09/23/13 Apixaban [Eliquis -] 5 mg PO BID #60 tablet 02/02/18 Fluticasone/Salmeterol [Advair Hfa 2 inh PO BID 02/13/18 45-21 Mcg Inhaler] Furosemide 20 mg PO DAILY 03/20/18 Metoprolol Succinate [Toprol Xl] 50 mg PO DAILY 03/20/18 Bupropion HCl [Wellbutrin -] 150 mg PO TID 09/30/18 Fluticasone Propionate [Flovent 100 mcg IH BID 09/30/18 Diskus] Omeprazole 20 mg PO BID 09/30/18 Potassium Chloride [Klor-Con 8] 24 meq PO TID 09/30/18 REVIEW OF SYSTEMS CONSTITUTIONAL: Absent: fever, chills, diaphoresis, generalized weakness, malaise, loss of appetite, weight change HEENT: Absent: rhinorrhea, nasal congestion, throat pain, throat swelling, difficulty swallowing, mouth swelling, ear pain, eye pain, visual changes CARDIOVASCULAR: Absent: chest pain, syncope, palpitations, irregular heart rate, lightheadedness , peripheral edema RESPIRATORY: Absent: cough, shortness of breath, dyspnea with exertion, orthopnea, wheezing, stridor, hemoptysis GASTROINTESTINAL: Absent: abdominal pain, abdominal distension, nausea, vomiting, diarrhea, constipation, melena, hematochezia GENITOURINARY: Absent: dysuria, frequency, urgency, hesitancy, hematuria, flank pain, genital pain MUSCULOSKELETAL: Absent: myalgia, arthralgia, joint swelling, back pain, neck pain SKIN: Absent: rash, itching, pallor HEMATOLOGIC/IMMUNOLOGIC: Absent: easy bleeding, easy bruising, lymphadenopathy, frequent infections ENDOCRINE: Absent: unexplained weight gain, unexplained weight loss, heat intolerance, cold intolerance NEUROLOGIC: Absent: headache, focal weakness or paresthesias, dizziness, unsteady gait, seizure, mental status changes, bladder or bowel incontinence PSYCHIATRIC: Absent: anxiety, depression, suicidal or homicidal ideation, hallucinations. PHYSICAL EXAMINATION Vital Signs - 24 hr 09/30/18 09/30/18 09/30/18 10:32 14:00 18:00 Temperature 99 F 98.2 F 98.7 F Pulse Rate 102 H 87 88 Respiratory 22 H 18 18 Rate Blood Pressure 140/70 153/74 153/72 O2 Sat by Pulse 94 L 100 100 Oximetry (%) 09/30/18 09/30/18 10/01/18 21:00 22:00 06:00 Temperature 98.1 F 98.4 F Pulse Rate 88 81 Respiratory 18 18 Rate Blood Pressure 132/61 139/73 O2 Sat by Pulse 100 100 Oximetry (%) 10/01/18 09:02 Temperature 98.2 F Pulse Rate 89 Respiratory 18 Rate Blood Pressure 128/56 L O2 Sat by Pulse 100 Oximetry (%) GENERAL: Awake, alert, and fully oriented, in no acute distress. HEAD: Normal with no signs of trauma. EYES: Pupils equal, round and reactive to light, extraocular movements intact, sclera anicteric, conjunctiva clear. No lid lag. EARS, NOSE, THROAT: Ears normal, nares patent, oropharynx clear without exudates. Moist mucous membranes. NECK: Normal range of motion, supple without lymphadenopathy, JVD, or masses. LUNGS: Breath sounds equal, clear to auscultation bilaterally. No wheezes, and no crackles. No accessory muscle use. HEART: Regular rate and rhythm, normal S1 and S2 without murmur, rub or gallop. ABDOMEN: Soft, nontender, not distended, normoactive bowel sounds, no guarding, no rebound, no masses. No hepatomegaly or splenomegaly. MUSCULOSKELETAL: Normal range of motion at all joints. No bony deformities or tenderness. No CVA tenderness. UPPER EXTREMITIES: 2+ pulses, warm, well-perfused. No cyanosis. No clubbing. No peripheral edema. LOWER EXTREMITIES: 2+ pulses, warm, well-perfused. No calf tenderness. No peripheral edema. NEUROLOGICAL: Cranial nerves II-XII intact. Normal speech. Normal gait. PSYCHIATRIC: Cooperative. Good eye contact. Appropriate mood and affect. SKIN: Warm, dry, normal turgor, no rashes or lesions noted, normal capillary refill. Laboratory Results - last 24 hr 09/30/18 09/30/18 10/01/18 08:46 13:00 08:00 WBC 9.8 RBC 3.17 L Hgb 10.0 L Hct 29.0 L D MCV 91.5 MCH 31.7 MCHC 34.7 RDW 12.8 Plt Count 139 D MPV 9.6 D Absolute Neuts (auto) 8.6 Neutrophils % 87.5 H D Lymphocytes % 6.2 L D Monocytes % 6.1 Eosinophils % 0.0 D Basophils % 0.2 Lactic Acid 1.2 B-Natriuretic Peptide 988.4 H ASSESSMENT/PLAN:
--- NOTE | 2018-10-01 09:41 | PN ---
Physical Exam: SUBJECTIVE: Patient seen and examined. present. Reviewed home prescription vials. In afib. OBJECTIVE: Vital Signs Period Temp Pulse Resp BP Sys/Aguilar Pulse Ox Last 24 Hr 98.1 F-99 F 81-102 18-22 128-153/56-74 94-100 GENERAL: Awake, alert, and fully oriented. Anxious. LUNGS: Wheezing resolved, lungs clear, diminished at the bases HEART: Irregular rate and rhythm, S1 and S2 ABDOMEN: Soft, nontender, not distended MUSCULOSKELETAL: Normal range of motion at all joints. No bony deformities or tenderness. No CVA tenderness. UPPER EXTREMITIES: 2+ pulses, warm, well-perfused. No cyanosis. No clubbing. No peripheral edema. LOWER EXTREMITIES: 2+ pulses, warm, well-perfused. No calf tenderness. No peripheral edema. No calf tenderness NEUROLOGICAL: Cranial nerves II-XII intact. Normal speech. Moves all extremities freely. Self-positions easily. Laboratory Results - last 24 hr 09/30/18 09/30/18 10/01/18 08:46 13:00 08:00 WBC 9.8 RBC 3.17 L Hgb 10.0 L Hct 29.0 L D MCV 91.5 MCH 31.7 MCHC 34.7 RDW 12.8 Plt Count 139 D MPV 9.6 D Absolute Neuts (auto) 8.6 Neutrophils % 87.5 H D Lymphocytes % 6.2 L D Monocytes % 6.1 Eosinophils % 0.0 D Basophils % 0.2 Lactic Acid 1.2 B-Natriuretic Peptide 988.4 H Active Medications Generic Name Dose Route Start Last Admin Trade Name Freq PRN Reason Stop Dose Admin Acetaminophen 650 mg 09/30/18 11:50 Tylenol - PO Q6H PRN FEVER Albuterol/Ipratropium 1 amp 09/30/18 12:00 10/01/18 08:44 Duoneb - NEB 1 amp RQID AVIVA Administration Apixaban 5 mg 09/30/18 12:46 10/01/18 09:18 Eliquis - PO 5 mg BID AVIVA Administration Atorvastatin Calcium 20 mg 09/30/18 22:00 09/30/18 21:56 Lipitor - PO 20 mg HS AVIVA Administration Bupropion HCl 150 mg 09/30/18 14:00 10/01/18 06:03 Wellbutrin - PO 150 mg TID AVIVA Administration Furosemide 20 mg 10/01/18 10:00 10/01/18 09:18 Lasix - PO 20 mg DAILY AVIVA Administration Azithromycin 500 mg/ Dextrose 250 mls @ 250 mls/hr 10/01/18 10:00 10/01/18 09 :18 IVPB 250 mls/hr DAILY AVIVA Administration Ceftriaxone Sodium 1 gm/ 100 mls @ 200 mls/hr 10/01/18 10:00 10/01/18 09:19 Dextrose IVPB 200 mls/hr DAILY AVIVA Administration Protocol Lorazepam 1 mg 09/30/18 22:00 10/01/18 06:03 Ativan - PO 1 mg TID AVIVA Administration Metoprolol Succinate 50 mg 10/01/18 10:00 10/01/18 09:19 Toprol Xl - PO 50 mg DAILY AVIVA Administration Pantoprazole Sodium 40 mg 10/01/18 10:00 10/01/18 09:18 Protonix - PO 40 mg DAILY AVIVA Administration Prednisone 40 mg 10/01/18 10:00 10/01/18 09:18 Deltasone - PO 10/05/18 10:01 40 mg DAILY AVIVA Administration ASSESSMENT/PLAN: 73 year-old male with a PMH significant for HTN, HLD, CHF, afib, asthma/COPD, GERD, and anxiety. Admitted for severe sepsis secondary to pneumonia. Severe sepsis, resolved --afebrile 24 hours, no leukocytosis, hemodynamically stable Community-acquired pneumonia --CT chest: extensive LLL and TANYA infiltrates; RLL infiltrates; very small left pleural effusion --clinically improved today --continue ceftriaxone and azithromycin Asthma/COPD --prednisone PO 40mg x 5 days (day #1) --duonebs Hypertension --continue metoprolol, resume losartan (Cr back to baseline) Hyperlipidemia --continue atorvastatin Atrial fibrillation with RVR --went into rapid afib with RVR today, BP stable --gave metoprolol 25mg x 1, rate improved to 100s --continue Toprol XL 50mg BID --continue Eliquis --telemetry monitoring Anxiety --continue home dose bupropion, lorazepam FEN Fluids: PO intake adequate Electrolytes: replete as indicated Nutrition: low sodium DVT prophylaxis: on Eliquis Physical therapy Dispo: continues to require inpatient care. Full code. Visit type - Emergency Visit Emergency Visit: Yes ED Registration Date: 09/30/18 Care time: The patient presented to the Emergency Department on the above date and was hospitalized for further evaluation of their emergent condition. - New Patient This patient is new to me today: No - Critical Care Critical Care patient: No
[2018-10-01] MEDS ORDERED: CEFTRIAXONE 1 GM in DEXTROSE 5%-WATER - 100 ML IVPB SCH (10:00)
[2018-10-01] MEDS ORDERED: AZITHROMYCIN IVPB 500 MG in DEXTROSE 5%-WATER - 250 ML IVPB SCH (10:00)
[2018-10-01 10:33] LABS: ANION GAP 7 MMOL/L (8-16); BLOOD UREA NITROGEN 21 mg/dl (7-18); CALCIUM 8.4 mg/dl (8.4-10.2); CHLORIDE 103 mmol/L (98-107); CO2 24 mmol/L (22-28); CREATININE 0.9 mg/dl (0.6-1.3); GLUCOSE,RANDOM 118 mg/dl (74-106); POTASSIUM 4.3 mmol/L (3.5-5.1); SODIUM 134 mmol/L (136-145)
[2018-10-01 10:34] LABS: ALBUMIN 2.9 g/dl (3.5-5.0); ALK PHOS 39 U/L (32-92); BILIRUBIN,TOTAL 0.4 mg/dl (0.2-1.0); MAGNESIUM 1.4 mg/dL (1.8-2.4); SGOT/AST 19 U/L (10-42); SGPT/ALT 14 U/L (10-40); TOT PROT 5.9 g/dl (6.4-8.3)
[2018-10-01] MEDS ORDERED: LORazepam 0.5 MG TABLET PO SCH (14:05)
[2018-10-01] MEDS ORDERED: METOPROLOL TARTRATE 25 MG TABLET (FP) PO ONE (14:31)
[2018-10-01] MEDS ORDERED: MAGNESIUM SULF 50% (8.12 MEQ/2 ML-1 GM VIAL) IVPB ONE (15:00)
[2018-10-01] MEDS: LOSARTAN POTASSIUM 50 MG TABLET (FP) PO SCH (16:49)
--- NOTE | 2018-10-01 19:22 | EKG ---
Test Reason : Blood Pressure : / mmHG Vent. Rate : 115 BPM Atrial Rate : 277 BPM P-R Int : 000 ms QRS Dur : 090 ms QT Int : 344 ms P-R-T Axes : 000 -24 004 degrees QTc Int : 475 ms ATRIAL FIBRILLATION WITH RAPID VENTRICULAR RESPONSE NONSPECIFIC ST ABNORMALITY ABNORMAL ECG WHEN COMPARED WITH ECG OF 30-SEP-2018 06:14, ATRIAL FIBRILLATION HAS REPLACED SINUS RHYTHM VENT. RATE HAS INCREASED Confirmed by CATHY ISSA, KEEGAN ([id number]) on 10/01/2018 7:21:46 PM Referred By: DEREK BETTS Confirmed By:KEEGAN MORGAN MD
--- NOTE | 2018-10-01 19:22 | EKG ---
Test Reason : Blood Pressure : / mmHG Vent. Rate : 094 BPM Atrial Rate : 094 BPM P-R Int : 144 ms QRS Dur : 086 ms QT Int : 358 ms P-R-T Axes : 020 -27 000 degrees QTc Int : 447 ms NORMAL SINUS RHYTHM NORMAL ECG WHEN COMPARED WITH ECG OF 01-MAR-2018 15:34, NO SIGNIFICANT CHANGE WAS FOUND Confirmed by KEEGAN MORGAN MD ([id number]) on 10/01/2018 7:21:48 PM Referred By: SARIKA Confirmed By:KEEGAN MORGAN MD
[2018-10-01] MEDS: ATORVASTATIN CA 20 MG TABLET (FP) PO SCH (21:28)
[2018-10-02] MEDS ORDERED: PT OWN MED DRAWER 7, Y5N ONE ×3 (06:26→20:47)
[2018-10-02] MEDS: LORazepam 0.5 MG TABLET PO SCH ×4 (06:37→21:00)
[2018-10-02] MEDS: buPROPion HCL 75 MG TABLET PO SCH ×3 (06:37→21:05)
[2018-10-02 08:19] LABS: BASO % 0.2 % (0-2.0); EOS % 0.1 % (0-4.5); HEMATOCRIT 31.9 % (35.4-49); HEMOGLOBIN 10.1 GM/dl (11.7-16.9); LYMPH % 13.4 % (8-40); MCH 29.5 pg (25.7-33.7); MCHC 31.8 g/dl (32.0-35.9); MEAN CELL VOLUME 92.6 fl (80-96); MEAN PLT VOLUME 8.9 fl (7.5-11.1); MONO % 7.3 % (3.8-10.2); PLATELET COUNT 165 K/MM3 (134-434); RBC 3.44 M/mm3 (4.00-5.60); RDW 12.8 % (11.9-15.9); WHITE BLOOD COUNT 9.6 K/mm3 (4.0-10.8)
[2018-10-02] MEDS: ALBUTEROL SO4 2.5/IPRATROPIUM 0.5 INH SOL 3 ML VIAL.NEB. NEB SCH ×4 (08:37→20:20)
[2018-10-02] MEDS: AZITHROMYCIN IVPB 500 MG/250 ML BAG IVPB SCH (09:34)
[2018-10-02] MEDS: FUROSEMIDE 20 MG TABLET (FP) PO SCH (09:35)
[2018-10-02] MEDS: PANTOPRAZOLE 40 MG TABLET (FP) PO SCH (09:35)
[2018-10-02] MEDS: CEFTRIAXONE 1 G/50 ML PREMIX 50 ML IVPB SCH (09:35)
[2018-10-02] MEDS: predniSONE 20 MG TABLET (UD) PO SCH (09:35)
[2018-10-02] MEDS: LOSARTAN POTASSIUM 50 MG TABLET (FP) PO SCH (09:35)
[2018-10-02] MEDS: APIXABAN 5 MG TABLET PO SCH ×2 (09:35→21:05)
[2018-10-02 09:59] LABS: ANION GAP 8 MMOL/L (8-16); BLOOD UREA NITROGEN 17 mg/dl (7-18); CALCIUM 8.6 mg/dl (8.4-10.2); CHLORIDE 103 mmol/L (98-107); CO2 26 mmol/L (22-28); GLUCOSE,RANDOM 86 mg/dl (74-106); POTASSIUM 3.9 mmol/L (3.5-5.1); SODIUM 137 mmol/L (136-145)
[2018-10-02 10:00] LABS: ALBUMIN 2.8 g/dl (3.5-5.0); ALK PHOS 37 U/L (32-92); BILIRUBIN,TOTAL 0.5 mg/dl (0.2-1.0); MAGNESIUM 1.7 mg/dL (1.8-2.4); SGOT/AST 18 U/L (10-42); SGPT/ALT 12 U/L (10-40); TOT PROT 5.9 g/dl (6.4-8.3)
[2018-10-02] MEDS ORDERED: MAGNESIUM SULF 50% (8.12 MEQ/2 ML-1 GM VIAL) IVPB ONE (11:18)
--- NOTE | 2018-10-02 11:20 | PN ---
Physical Exam: SUBJECTIVE: Patient seen and examined at bedside. Feels better. IV site continues to occupy his attention. No sign of infiltration. OBJECTIVE: Vital Signs Period Temp Pulse Resp BP Sys/Aguilar Pulse Ox Last 24 Hr 97.6 F-98.4 F 86-118 18-20 126-152/60-87 98-98 General/Neuro: A&Ox3, in no acute distress Pulm: Lungs CTA CV: Irregular S1, S2 Abd: soft, not tender, not distended Ext: 2+ pulses, warm, well-perfused, no edema, no calf tenderness Laboratory Results - last 24 hr 10/02/18 10/02/18 07:21 07:21 WBC 9.6 RBC 3.44 L Hgb 10.1 L Hct 31.9 L MCV 92.6 MCH 29.5 MCHC 31.8 L RDW 12.8 Plt Count 165 MPV 8.9 Absolute Neuts (auto) 7.6 Neutrophils % 79.0 Lymphocytes % 13.4 D Monocytes % 7.3 Eosinophils % 0.1 D Basophils % 0.2 Sodium 137 Potassium 3.9 Chloride 103 Carbon Dioxide 26 Anion Gap 8 BUN 17 Creatinine 1.0 Creat Clearance w eGFR > 60 Random Glucose 86 D Calcium 8.6 Magnesium 1.7 L Total Bilirubin 0.5 AST 18 ALT 12 Alkaline Phosphatase 37 Total Protein 5.9 L Albumin 2.8 L Active Medications Generic Name Dose Route Start Last Admin Trade Name Freq PRN Reason Stop Dose Admin Acetaminophen 650 mg 09/30/18 11:50 Tylenol - PO Q6H PRN FEVER Albuterol/Ipratropium 1 amp 09/30/18 12:00 10/02/18 08:37 Duoneb - NEB 1 amp RQID AVIVA Administration Apixaban 5 mg 09/30/18 12:46 10/02/18 09:35 Eliquis - PO 5 mg BID AVIVA Administration Atorvastatin Calcium 20 mg 09/30/18 22:00 10/01/18 21:28 Lipitor - PO 20 mg HS AVIVA Administration Bupropion HCl 150 mg 09/30/18 14:00 10/02/18 06:37 Wellbutrin - PO 150 mg TID AVIVA Administration Furosemide 20 mg 10/01/18 10:00 10/02/18 09:35 Lasix - PO 20 mg DAILY AVIVA Administration Ceftriaxone Sodium 50 mls @ 100 mls/hr 10/02/18 08:10 10/02/18 09:35 Ceftriaxone 1 Gm-D5w Bag IVPB 100 mls/hr DAILY AVIVA Administration Protocol Azithromycin 500 mg in 250 mls @ 250 mls/hr 10/02/18 08:14 10/02/18 09:34 Zithromax 500mg Ivpb (Pre-Docked) IVPB 250 mls/hr DAILY AVIVA Administration Lorazepam 1 mg 10/01/18 22:00 10/01/18 21:28 Ativan - PO 1 mg HS AVIVA Administration Lorazepam 0.5 mg 10/01/18 18:00 10/02/18 06:37 Ativan - PO 0.5 mg 0600,1200,1800 AVIVA Administration Losartan Potassium 100 mg 10/01/18 15:30 10/02/18 09:35 Cozaar - PO 100 mg DAILY AVIVA Administration Metoprolol Succinate 75 mg 10/02/18 10:00 Toprol Xl - PO BID AVIVA Pantoprazole Sodium 40 mg 10/01/18 10:00 10/02/18 09:35 Protonix - PO 40 mg DAILY AVIVA Administration Prednisone 40 mg 10/01/18 10:00 10/02/18 09:35 Deltasone - PO 10/05/18 10:01 40 mg DAILY AVIVA Administration ASSESSMENT/PLAN: 73 year-old male with a PMH significant for HTN, HLD, CHF, afib, asthma/COPD, GERD, and anxiety. Admitted for severe sepsis secondary to pneumonia. Severe sepsis, resolved --afebrile no leukocytosis, hemodynamically stable Community-acquired pneumonia --CT chest: extensive LLL and TANYA infiltrates; RLL infiltrates; very small left pleural effusion --continue ceftriaxone (day #3) and azithromycin (day #3) Asthma/COPD --prednisone PO 40mg x 5 days (day #2) --duonebs Hypertension --continue metoprolol, resume losartan (Cr back to baseline) Hyperlipidemia --continue atorvastatin Paroxysmal atrial fibrillation with RVR --10/01 went into rapid afib with RVR to 140s, BP stable --rate 120s overnight --increase Toprol XL to 75mg BID --Mg continues to be low, replete again today --continue Eliquis --telemetry monitoring --cardiology consult requested Anxiety --continue home dose bupropion, lorazepam Hypomagnesemia --repleted FEN Fluids: PO intake adequate Electrolytes: replete as indicated Nutrition: low sodium DVT prophylaxis: on Eliquis Physical therapy Dispo: continues to require inpatient care. Full code. Visit type - Emergency Visit Emergency Visit: Yes ED Registration Date: 09/30/18 Care time: The patient presented to the Emergency Department on the above date and was hospitalized for further evaluation of their emergent condition. - New Patient This patient is new to me today: No - Critical Care Critical Care patient: No
--- NOTE | 2018-10-02 13:01 | CON.CARD ---
Consult Consult Specialty:: Cardiology Referred by:: Salvador Reason for Consultation:: atrial fibrillation - History of Present Illness Chief Complaint: afib History of Present Illness: 73M h/o HTN, HLD, afib, asthma/COPD p/w cough, chills, wheezing, fever. Started on abx and steroids for sepsis 2/2 PNA, COPD exacerbation. Initially HR stable, noted to have episodes of afib with RVR to the 150s. Metoprolol was increased to 75 mg BID. No chest pain, palps, dizzy, lightheadedness, dyspnea. - Past Medical History Cardio/Vascular: Yes: AFIB, HTN - Alcohol/Substance Use Hx Alcohol Use: Yes (WINE) - Smoking History Smoking history: Former smoker Have you smoked in the past 12 months: No Aproximately how many cigarettes per day: 0 If you are a former smoker, when did you quit?: [facility] Home Medications - Allergies Allergies/Adverse Reactions: Allergies Allergy/AdvReac Type Severity Reaction Status Date / Time No Known Drug Allergies Allergy Mild Verified 03/20/18 13:38 - Home Medications Home Medications: Ambulatory Orders Cholecalciferol (Vitamin D3) [Vitamin D] 1,000 unit PO BID 09/23/13 Lorazepam 1 mg PO TID 09/23/13 Niacin [Niaspan] 500 mg PO HS 09/23/13 Simvastatin [Zocor -] 20 mg PO HS 09/23/13 Apixaban [Eliquis -] 5 mg PO BID #60 tablet 02/02/18 Fluticasone/Salmeterol [Advair Hfa 45-21 Mcg Inhaler] 2 inh PO BID 02/13/18 Furosemide 20 mg PO DAILY 03/20/18 Metoprolol Succinate [Toprol Xl] 50 mg PO BID 03/20/18 Bupropion HCl [Wellbutrin -] 150 mg PO TID 09/30/18 Fluticasone Propionate [Flovent Diskus] 100 mcg IH BID 09/30/18 Omeprazole 40 mg PO DAILY 09/30/18 Potassium Chloride [Klor-Con 8] 24 meq PO BID 09/30/18 Losartan Potassium [Cozaar] 100 mg PO DAILY 10/01/18 Family Disease History - Family Disease History Family History: Unremarkable Review of Systems - Review of Systems Constitutional: reports: Fever, Weakness Eyes: reports: No Symptoms HENT: reports: No Symptoms Neck: reports: No Symptoms Cardiovascular: reports: No Symptoms Respiratory: reports: No Symptoms Gastrointestinal: reports: No Symptoms Genitourinary: reports: No Symptoms Musculoskeletal: reports: No Symptoms Integumentary: reports: No Symptoms Neurological: reports: No Symptoms Endocrine: reports: No Symptoms Hematology/Lymphatic: reports: No Symptoms Psychiatric: reports: No Symptoms Vital Signs: Vital Signs Temperature 97.6 F 10/02/18 09:42 Pulse Rate 116 H 10/02/18 09:42 Respiratory Rate 20 10/02/18 09:42 Blood Pressure 126/83 10/02/18 09:42 O2 Sat by Pulse Oximetry (%) 98 10/02/18 09:00 Constitutional: Yes: No Distress, Calm Eyes: Yes: Conjunctiva Clear, EOM Intact HENT: Yes: Atraumatic, Normocephalic Neck: Yes: Supple, Trachea Midline Respiratory: Yes: Regular, CTA Bilaterally Gastrointestinal: Yes: Normal Bowel Sounds, Soft Cardiovascular: Yes: Tachycardia, Pulse Irregular JVD: No Carotid Bruit: No PMI: Non-Displaced Heart Sounds: Yes: S1, S2 Musculoskeletal: No: Back Pain Extremities: No: Cold Edema: No Peripheral Pulses WNL: Yes Peripheral Pulses: 2+ Left Doralis Pedis, 2+ Right Dorsalis Pedis Integumentary: No: Jaundice Neurological: Yes: Alert, Oriented Psychiatric: Yes: Alert, Oriented - Other Data Labs, Other Data: CBC, BMP 10/02/18 07:21 10/02/18 07:21 INR, PTT INR 1.32 (0.83-1.09) H 09/30/18 05:50 Assessment/Plan EKG 09/30/18 sinus, no ischemic changes EKG 10/01/18 afib rate 115, nonspecific ST changes Echo 01/2018: nl lv/rv, no sig valve path, nl rvsp mibi 02/2018: nl mpi, nl lvef sepsis, PNA - on abx, steroids per primary Afib - initially in sinus rhythm, now afib with poorly controlled rate, improved with additional metoprolol dose - on toprol 50 mg BID, eliquis at home - h/o lower ext edema on diltiazem - toprol increased to 75 mg BID, monitoring on tele - uptitrate as tolerated HTN - continue lasix, metoprolol, losartan, stable HLD - continue statin
[2018-10-02] MEDS ORDERED: METOPROLOL TARTRATE 5 MG/5 ML VIAL IVPUSH PRN (13:50)
[2018-10-02] MEDS: ATORVASTATIN CA 20 MG TABLET (FP) PO SCH (21:05)
[2018-10-03] MEDS: LOSARTAN POTASSIUM 50 MG TABLET (FP) PO SCH ×2 (04:25→10:04)
[2018-10-03] MEDS: LORazepam 0.5 MG TABLET PO SCH ×5 (04:26→21:50)
[2018-10-03] MEDS ORDERED: PT OWN MED DRAWER 7, Y5N ONE ×3 (06:26→21:32)
[2018-10-03] MEDS: buPROPion HCL 75 MG TABLET PO SCH ×3 (06:45→21:49)
[2018-10-03] MEDS: ALBUTEROL SO4 2.5/IPRATROPIUM 0.5 INH SOL 3 ML VIAL.NEB. NEB SCH (09:57)
[2018-10-03] MEDS: CEFTRIAXONE 1 G/50 ML PREMIX 50 ML IVPB SCH (10:03)
[2018-10-03] MEDS: predniSONE 20 MG TABLET (UD) PO SCH (10:03)
[2018-10-03] MEDS: PANTOPRAZOLE 40 MG TABLET (FP) PO SCH (10:04)
[2018-10-03] MEDS: APIXABAN 5 MG TABLET PO SCH ×2 (10:04→21:49)
[2018-10-03] MEDS: AZITHROMYCIN IVPB 500 MG/250 ML BAG IVPB SCH (10:05)
--- NOTE | 2018-10-03 10:26 | PN ---
Physical Exam: SUBJECTIVE: Patient seen and examined OBJECTIVE: Vital Signs Period Temp Pulse Resp BP Sys/Aguilar Pulse Ox Last 24 Hr 97.2 F-98.6 F 105-136 16-19 133-162/70-100 92-99 GENERAL: The patient is awake, alert, and fully oriented, in no acute distress. HEAD: Normal with no signs of trauma. EYES: PERRL, extraocular movements intact, sclera anicteric, conjunctiva clear. No ptosis. ENT: Ears normal, nares patent, oropharynx clear without exudates, moist mucous membranes. NECK: Trachea midline, full range of motion, supple. LUNGS: Breath sounds equal, clear to auscultation bilaterally, no wheezes, no crackles, no accessory muscle use. HEART: Regular rate and rhythm, S1, S2 without murmur, rub or gallop. ABDOMEN: Soft, nontender, nondistended, normoactive bowel sounds, no guarding, no rebound, no hepatosplenomegaly, no masses. EXTREMITIES: 2+ pulses, warm, well-perfused, no edema. NEUROLOGICAL: Cranial nerves II through XII grossly intact. Normal speech, gait not observed. PSYCH: Normal mood, normal affect. SKIN: Warm, dry, normal turgor, no rashes or lesions noted Laboratory Results - last 24 hr 10/03/18 07:36 Magnesium 1.9 Active Medications Generic Name Dose Route Start Last Admin Trade Name Freq PRN Reason Stop Dose Admin Acetaminophen 650 mg 09/30/18 11:50 10/02/18 21:06 Tylenol - PO 650 mg Q6H PRN Administration FEVER Apixaban 5 mg 10/03/18 10:00 10/03/18 10:04 Eliquis - PO 5 mg BID AVIVA Administration Atorvastatin Calcium 20 mg 09/30/18 22:00 10/02/18 21:05 Lipitor - PO 20 mg HS AVIVA Administration Bupropion HCl 150 mg 09/30/18 14:00 10/03/18 06:45 Wellbutrin - PO 150 mg TID AVIVA Administration Ceftriaxone Sodium 50 mls @ 100 mls/hr 10/02/18 08:10 10/03/18 10:03 Ceftriaxone 1 Gm-D5w Bag IVPB 100 mls/hr DAILY AVIVA Administration Protocol Azithromycin 500 mg in 250 mls @ 250 mls/hr 10/02/18 08:14 10/03/18 10:05 Zithromax 500mg Ivpb (Pre-Docked) IVPB 250 mls/hr DAILY AVIVA Administration Lorazepam 1 mg 10/01/18 22:00 10/02/18 21:00 Ativan - PO 1 mg HS AVIVA Administration Lorazepam 0.5 mg 10/01/18 18:00 10/03/18 06:45 Ativan - PO 0.5 mg 0600,1200,1800 AVIVA Administration Losartan Potassium 100 mg 10/01/18 15:30 10/03/18 10:04 Cozaar - PO Not Given DAILY AVIVA Metoprolol Succinate 25 mg 10/03/18 10:45 Toprol Xl - PO 10/03/18 10:46 ONCE ONE Metoprolol Succinate 100 mg 10/03/18 10:23 Toprol Xl - PO BID AVIVA Metoprolol Tartrate 5 mg 10/02/18 13:50 10/02/18 22:09 Lopressor Injection - IVPUSH 5 mg Q4H PRN Administration HR >130 Pantoprazole Sodium 40 mg 10/01/18 10:00 10/03/18 10:04 Protonix - PO 40 mg DAILY AVIVA Administration Prednisone 40 mg 10/01/18 10:00 10/03/18 10:03 Deltasone - PO 10/05/18 10:01 40 mg DAILY AVIVA Administration ASSESSMENT/PLAN:
[2018-10-03] MEDS ORDERED: metoPROLOL SUCCINATE 25 MG TAB.SR.24H (FP) PO ONE (10:45)
[2018-10-03] MEDS: ATORVASTATIN CA 20 MG TABLET (FP) PO SCH (21:49)
--- NOTE | 2018-10-04 00:39 | HOSP ---
Subjective - Review of Symptoms Events since last encounter: Hospitalist Encounter Was notified by the RN, that the patient is very anxious and his HR and BP are elevated. Subjective: Arrived to the bedside patient is alert, awake and oriented he expressed concern about his blood pressure being elevated. Patient reports having left sided chest pressure non-radiating no changes to his breathing. Assessment: 73 year-old male with a PMH significant for HTN, HLD, CHF, Afib, Asthma/COPD, GERD, and Anxiety. Admitted for severe sepsis secondary to pneumonia. Plan: EKG stat Trop I stat Cozaar ordered x1 now Monitor BP closely Other Systems: Psychological: Anxious Physical Examination Vital Signs: Vital Signs Temperature 97.8 F 10/03/18 23:00 Pulse Rate 120 H 10/04/18 00:02 Respiratory Rate 20 10/04/18 00:02 Blood Pressure 180/120 H 10/04/18 00:02 O2 Sat by Pulse Oximetry (%) 97 10/03/18 21:48 Constitutional: Yes: Anxious, Mild Distress Eyes: Yes: WNL, Conjunctiva Clear, EOM Intact, PERRL HENT: Yes: WNL, Atraumatic, Normocephalic Neck: Yes: WNL, Supple, Trachea Midline Cardiovascular: Yes: Tachycardia, Pulse Irregular, S1, S2 Respiratory: Yes: Diminished (bases), On Nasal O2, Rhonchi, Wheezes Gastrointestinal: Yes: WNL, Normal Bowel Sounds, Soft Edema: No Peripheral Pulses WNL: Yes Neurological: Yes: WNL, Alert, Oriented, Cran Nerves II-XII Intact ...Motor Strength: WNL Psychiatric: Yes: Alert, Oriented, Other (Anxiety) Labs: CBC, BMP 10/02/18 07:21 10/02/18 07:21 Hospitalist Encounter Outcome: EKG reviewed- A- Flutter with variable AV block, ST & T wave abnormality Troponin I < 0.02 04:00 Repeat BP 162/93, P- 110 06:30 BP 155/98 Per RN, chest pressure resolved patient is resting comfortably. Recommendations/Interventions: Adjustment to BP medication regimen Critical Care Total Critical Care Time (in minutes): 32 Critical Care Statement: The care of this patient involved high complexity decision making to prevent further life threatening deterioration of the patient 's condition and/or to evaluate & treat vital organ system(s) failure or risk of failure.
[2018-10-04] MEDS ORDERED: LOSARTAN POTASSIUM 50 MG TABLET (FP) PO ONE (00:41)
[2018-10-04] MEDS ORDERED: PT OWN MED DRAWER 7, Y5N ONE ×2 (06:32→14:05)
[2018-10-04] MEDS: LORazepam 0.5 MG TABLET PO SCH ×2 (06:33→13:20)
[2018-10-04] MEDS: buPROPion HCL 75 MG TABLET PO SCH ×2 (06:33→14:23)
[2018-10-04] MEDS: PANTOPRAZOLE 40 MG TABLET (FP) PO SCH (10:17)
[2018-10-04] MEDS: CEFTRIAXONE 1 G/50 ML PREMIX 50 ML IVPB SCH (10:17)
[2018-10-04] MEDS: LOSARTAN POTASSIUM 50 MG TABLET (FP) PO SCH (10:17)
[2018-10-04] MEDS: predniSONE 20 MG TABLET (UD) PO SCH (10:17)
[2018-10-04] MEDS: APIXABAN 5 MG TABLET PO SCH (10:17)
[2018-10-04] MEDS: AZITHROMYCIN IVPB 500 MG/250 ML BAG IVPB SCH (10:18)
--- NOTE | 2018-10-04 10:45 | EKG ---
Test Reason : Blood Pressure : / mmHG Vent. Rate : 116 BPM Atrial Rate : 312 BPM P-R Int : 000 ms QRS Dur : 090 ms QT Int : 306 ms P-R-T Axes : 000 -23 -20 degrees QTc Int : 425 ms ATRIAL FLUTTER WITH VARIABLE A-V BLOCK MINIMAL VOLTAGE CRITERIA FOR LVH, MAY BE NORMAL VARIANT ABNORMAL ECG WHEN COMPARED WITH ECG OF 01-OCT-2018 15:06, ATRIAL FLUTTER HAS REPLACED ATRIAL FIBRILLATION ST NO LONGER DEPRESSED IN LATERAL LEADS T WAVE INVERSION NOW EVIDENT IN ANTERIOR LEADS Confirmed by DEVYN ISSA, MAC ([id number]) on 10/04/2018 10:44:38 AM Referred By: UMER/PIA Confirmed By:MAC SHEPARD MD
--- NOTE | 2018-10-04 10:53 | DS ---
Physical Exam: SUBJECTIVE: Patient seen and examined OBJECTIVE: Vital Signs Period Temp Pulse Resp BP Sys/Aguilar Pulse Ox Last 24 Hr 97.6 F-98.2 F 101-124 17-20 137-190/87-120 92-98 PHYSICAL EXAM GENERAL: The patient is awake, alert, and fully oriented, in no acute distress. HEAD: Normal with no signs of trauma. EYES: PERRL, extraocular movements intact, sclera anicteric, conjunctiva clear. ENT: Ears normal, nares patent, oropharynx clear without exudates, moist mucous membranes. NECK: Trachea midline, full range of motion, supple. LUNGS: Breath sounds equal, clear to auscultation bilaterally, no wheezes, no crackles, no accessory muscle use. HEART: Regular rate and rhythm, S1, S2 without murmur, rub or gallop. ABDOMEN: Soft, nontender, nondistended, normoactive bowel sounds, no guarding, no rebound, no hepatosplenomegaly, no masses. EXTREMITIES: 2+ pulses, warm, well-perfused, no edema. NEUROLOGICAL: Cranial nerves II through XII grossly intact. Normal speech, gait not observed. PSYCH: Normal mood, normal affect. SKIN: Warm, dry, normal turgor, no rashes or lesions noted. LABS Laboratory Results - last 24 hr 10/04/18 10/04/18 10/04/18 01:00 08:53 08:53 Troponin I < 0.02 Cancelled < 0.03 HOSPITAL COURSE: Date of Admission:09/30/18 Date of Discharge: 10/04/18 Minutes to complete discharge: 35 Discharge Summary Reason For Visit: COPD, PNEUMONIA Current Active Problems COPD (chronic obstructive pulmonary disease) (Acute) Pneumonia (Acute) Condition: Stable - Instructions Referrals: Matheus Jean Baptiste MD [Primary Care Provider] - - Home Medications Comprehensive Discharge Medication List: Ambulatory Orders Cholecalciferol (Vitamin D3) [Vitamin D] 1,000 unit PO BID 09/23/13 Lorazepam 1 mg PO TID 09/23/13 Niacin [Niaspan] 500 mg PO HS 09/23/13 Simvastatin [Zocor -] 20 mg PO HS 09/23/13 Apixaban [Eliquis -] 5 mg PO BID #60 tablet 02/02/18 Fluticasone/Salmeterol [Advair Hfa 45-21 Mcg Inhaler] 2 inh PO BID 02/13/18 Furosemide 20 mg PO DAILY 03/20/18 Metoprolol Succinate [Toprol Xl] 50 mg PO BID 03/20/18 Bupropion HCl [Wellbutrin -] 150 mg PO TID 09/30/18 Fluticasone Propionate [Flovent Diskus] 100 mcg IH BID 09/30/18 Omeprazole 40 mg PO DAILY 09/30/18 Potassium Chloride [Klor-Con 8] 24 meq PO BID 09/30/18 Losartan Potassium [Cozaar] 100 mg PO DAILY 10/01/18 This patient is new to me today: No Emergency Visit: Yes ED Registration Date: 09/30/18 Care time: The patient presented to the Emergency Department on the above date and was hospitalized for further evaluation of their emergent condition. Critical Care patient: No - Discharge Referral Referred to [facility] No
[2018-10-04 14:27] VITALS: BP 151/78; PULSE 106; TEMP 97.7
== END 2018-10-04 17:15 | disposition home or self-care (01) | DRG 871 ==
LOC: FER 05:10 → FM/S 09:19
PROVIDERS: ADMIT Internal Medicine; ATTEND Nurse Practitioner Acute Care
DX: A41.9 Sepsis, unspecified organism (principal); J18.9 Pneumonia, unspecified organism; J90 Pleural effusion, not elsewhere classified; I48.1 Persistent atrial fibrillation; I48.92 Unspecified atrial flutter; J44.1 Chronic obstructive pulmonary disease with (acute) exacerbation; I48.91 Unspecified atrial fibrillation; E78.5 Hyperlipidemia, unspecified; J44.9 Chronic obstructive pulmonary disease, unspecified; K21.9 Gastro-esophageal reflux disease without esophagitis; F41.9 Anxiety disorder, unspecified; I10 Essential (primary) hypertension; E83.42 Hypomagnesemia; Z87.891 Personal history of nicotine dependence
CPT/HCPCS: 36415; 71045-TC-FY; 71250-TC; 80053; 81003; 81015; 82550; 82553; 83605; 83735; 83880; 84100; 84484; 85025; 85610; 87040; 87070; 87205; 87804; 93005; 94640; 97116-GP; 97161-GP; 99284-25; J7030

== ENCOUNTER 2019-02-12 12:07 | Emergency (ER) | payer OTHER ==
[2019-02-12 12:14] VITALS: BP 142/74; PULSE 72; TEMP 98.3; BMI 22.1
--- NOTE | 2019-02-12 12:19 | PDOC ---
History of Present Illness - General Chief Complaint: Respiratory Stated Complaint: COUGH Time Seen by Provider: 02/12/19 12:18 - History of Present Illness Initial Comments: 02/12/19 12:29 Mr. Hilario is a 73 yo male w/ pmh of HTN, HLD, GERD, COPD, anxiety, depression, asthma, afib (on eliquis) who presents for evaluation of 3-4 day history of cough. Patient has had similar instances in the past and is concerned he may have a pneumonia. Denies other coinciding complaints at this time. The patient denies chest pain, shortness of breath, headache and dizziness. Denies fever, chills, nausea, vomit, diarrhea and constipation. Denies dysuria, frequency, urgency and hematuria. PCP: Dr. Jean Baptiste Past History - Past Medical History Allergies/Adverse Reactions: Allergies Allergy/AdvReac Type Severity Reaction Status Date / Time No Known Drug Allergies Allergy Mild Verified 02/12/19 12:31 Home Medications: Ambulatory Orders Cholecalciferol (Vitamin D3) [Vitamin D] 1,000 unit PO BID 09/23/13 Lorazepam 1 mg PO TID 09/23/13 Niacin [Niaspan] 500 mg PO HS 09/23/13 Simvastatin [Zocor -] 20 mg PO HS 09/23/13 Apixaban [Eliquis -] 5 mg PO BID #60 tablet 02/02/18 Bupropion HCl [Wellbutrin -] 150 mg PO TID 09/30/18 Omeprazole 40 mg PO DAILY 09/30/18 Losartan Potassium [Cozaar] 100 mg PO DAILY 10/01/18 Metoprolol Succinate [Toprol XL -] 100 mg PO BID #60 tab.sr.24h 10/04/18 Fluticasone Propionate [Flovent Diskus] 50 mcg IH BID 02/12/19 Anemia: No Asthma: Yes Cancer: No Cardiac Disorders: Yes (A FIB) CVA: No COPD: Yes CHF: No DVT: No Dementia: No Diabetes: No GI Disorders: Yes (GERD, gastritis) Disorders: No HTN: Yes Hypercholesterolemia: Yes Liver Disease: No Psychiatric Problems: Yes (ANXIETY) Seizures: No Thyroid Disease: No - Surgical History Abdominal Surgery: No Appendectomy: No Cardiac Surgery: No Cholecystectomy: Yes Lung Surgery: No Neurologic Surgery: No Orthopedic Surgery: Yes (DEMETRICE SHOULDER ARTHROSCOPIES) - Immunization History Td Vaccination: Yes Immunization Up to Date: Yes - Suicide/Smoking/Psychosocial Hx Smoking Status: No Smoking History: Former smoker Have you smoked in the past 12 months: No Number of Cigarettes Smoked Daily: 0 If you are a former smoker, when did you quit?: 1990s Cigars Per Day: 0 Information on smoking cessation initiated: No Hx Alcohol Use: No Drug/Substance Use Hx: No Substance Use Type: Alcohol Hx Substance Use Treatment: No Review of Systems - Review of Systems Comments:: 02/12/19 12:31 GENERAL/CONSTITUTIONAL: No fever or chills. No weakness. HEAD, EYES, EARS, NOSE AND THROAT: No change in vision. No ear pain or discharge. No sore throat. CARDIOVASCULAR: No chest pain or shortness of breath RESPIRATORY: +Cough as described. No wheezing or hemoptysis. GASTROINTESTINAL: No nausea, vomiting, diarrhea or constipation. GENITOURINARY: No dysuria, frequency, or change in urination. MUSCULOSKELETAL: No joint or muscle swelling or pain. No neck or back pain. SKIN: No rash NEUROLOGIC: No headache, vertigo, loss of consciousness, or change in strength/ sensation. ENDOCRINE: No increased thirst. No abnormal weight change HEMATOLOGIC/LYMPHATIC: No anemia, easy bleeding, or history of blood clots. ALLERGIC/IMMUNOLOGIC: No hives or skin allergy. *Physical Exam - Vital Signs Last Vital Signs Temp Pulse Resp BP Pulse Ox 98.3 F 72 16 142/74 100 02/12/19 12:09 02/12/19 12:09 02/12/19 12:09 02/12/19 12:09 02/12/19 12:09 - Physical Exam Comments: 02/12/19 12:31 GENERAL: Awake, alert, and fully oriented, in no acute distress HEAD: No signs of trauma, normocephalic, atraumatic EYES: PERRLA, EOMI, sclera anicteric, conjunctiva clear ENT: Auricles normal inspection, hearing grossly normal, nares patent, oropharynx clear without exudates. Moist mucosa NECK: Normal ROM, supple, no lymphadenopathy, JVD, or masses LUNGS: No distress, speaks full sentences, clear to auscultation bilaterally HEART: Regular rate and rhythm, normal S1 and S2, no murmurs, rubs or gallops, peripheral pulses normal and equal bilaterally. ABDOMEN: Soft, nontender, normoactive bowel sounds. No guarding, no rebound. No masses EXTREMITIES: Normal inspection, Normal range of motion, no edema. No clubbing or cyanosis. NEUROLOGICAL: Cranial nerves II through XII grossly intact. Normal speech, normal gait, no focal sensorimotor deficits SKIN: Warm, Dry, normal turgor, no rashes or lesions noted. Medical Decision Making - Medical Decision Making 02/12/19 13:22 Mr. Hilario is a 73 yo male w/ pmh as described who presents for evaluation of cough symptoms. Patient evaluated with CXR with no concerning findings noted. Discharging patient to home with symptomatic management and outpatient follow- up. *DC/Admit/Observation/Transfer Diagnosis at time of Disposition: Cough - Discharge Dispostion Disposition: HOME Condition at time of disposition: Good - Referrals Referrals: Matheus Jean Baptiste MD [Primary Care Provider] - - Patient Instructions Printed Discharge Instructions: DI for Cough -- Adult Additional Instructions: You were evaluated today in the ER for your cough. We performed chest X-ray and found no concerning findings. You may take over the counter anti-cough medications for relief per package instructions. Follow-up with primary care provider later this week for further evaluation. Return to ER if any fever, chills, worsening of cough, or other concerning symptoms. - Post Discharge Activity
--- NOTE | 2019-02-12 12:49 | PDOC ---
Attending Attestation - Resident Resident Name: Shoaib Escobar - ED Attending Attestation I have performed the following: I have examined & evaluated the patient, The case was reviewed & discussed with the resident, I agree w/resident's findings & plan, Exceptions are as noted - HPI HPI: 73 yo M history HTN, HL, GERD, COPD, anxiety, depression, asthma, afib presents with 3-4 days of dry cough. No other associated symptoms. Has not had fever. He expresses concern that he has pneumonia, as he has had it in the past. Denies SOB, URRUTIA. - Physicial Exam PE: GENERAL: Awake, alert, and fully oriented, in no acute distress HEAD: No signs of trauma EYES: PERRLA, EOMI, sclera anicteric, conjunctiva clear ENT: Auricles normal inspection, hearing grossly normal, nares patent, oropharynx clear without exudates. Moist mucosa NECK: Normal ROM, supple, no lymphadenopathy, JVD, or masses LUNGS: Breath sounds equal, clear to auscultation bilaterally. No wheezes, and no crackles HEART: Regular rate and rhythm, normal S1 and S2, no murmurs, rubs or gallops ABDOMEN: Soft, nontender, normoactive bowel sounds. No guarding, no rebound. No masses EXTREMITIES: Normal range of motion, no edema. No clubbing or cyanosis. No cords, erythema, or tenderness NEUROLOGICAL: Cranial nerves II through XII grossly intact. Normal speech, normal gait. Motor and sensation intact SKIN: Warm, Dry, normal turgor, no rashes or lesions noted. - Medical Decision Making Pt is well-appearing with clear lungs. CXR no acute findings. Stable for DC home. Recommended that he f/u with PMD. If he develops fever or the cough persists beyond 2 weeks, he may need to be treated for bronchitis, but at this point, there is no reason to suspect anything beyond a viral infection.
== END 2019-02-12 13:42 | disposition home or self-care (01) ==
LOC: FER 12:07
DX: R05 Cough (principal); I10 Essential (primary) hypertension; E78.5 Hyperlipidemia, unspecified; K21.9 Gastro-esophageal reflux disease without esophagitis; F41.8 Other specified anxiety disorders; I48.91 Unspecified atrial fibrillation; J45.909 Unspecified asthma, uncomplicated; Z87.891 Personal history of nicotine dependence
CPT/HCPCS: 71046-TC-FY; 99282-25

== ENCOUNTER 2019-05-23 22:00 | Inpatient (IN) | payer OTHER ==
--- NOTE | 2019-05-23 22:14 | PDOC ---
History of Present Illness - General Chief Complaint: Pain, Acute Stated Complaint: LEFT ARM PAIN Time Seen by Provider: 05/23/19 22:08 History Source: Patient Exam Limitations: No Limitations - History of Present Illness Initial Comments: 05/23/19 22:32 This is a 73-year-old male with history of hypertension high cholesterol and coronary artery disease who comes in complaining of pain radiating from his neck across to her shoulder and down the outside of his left arm. Patient also has a mild discomfort or pain in his left chest. Patient denies any shortness of breath, nausea, diaphoresis or any other associated symptoms except he said there was some paresthesias of his fingers when he had the pain. Patient said the pain at about 8 hours and now has completely resolved. Patient said he has had similar pain in the past intermittently from time to time but has never had it evaluated. he was told he does have some arthritis in his neck. Allergies: as per nursing notes Past Medical History: none Social history: Lives with family. No smoking. No alcohol. No illicit drugs. Surgical history: None General: No fevers or chills, no weakness, no weight loss HEENT: No change in vision. No sore throat,. No ear pain CardioVascular: no chest discomfort. No shortness of breath Respiratory:No cough, or wheezing. Gastrointestinal: no nausea, vomiting, diarrhea or constipation, No rectal bleeding Genitourinary: No dysuria, hematuria, or frequency Musculoskeletal: Pain down the outside of left arm as per history of present illness Neurologic: No headache, vertigo, dizziness or loss of consciousness Psychiatric: nor depression Skin: No rashes or easy bruising Endocrine: no increased thirst or abnormal weight change Allergic: no skin or latex allergy All other systems reviewed and normal Exam: General: Well-nourished well-developed individual, no acute distress HEENT: Throat: Normal, tonsils normal, no erythema or exudate Neck: Supple, no meningeal signs, no lymphadenopathy Cervical spine there is no tenderness on palpation. Eyes::Pupils equal reactive and round, extraocular motion intact Chest: Nontender to palpation Cardiac: S1-S2 normal, regular rate and rhythm, no murmurs rubs or gallops Respiratory: Lungs clear to auscultation bilateral Abdomen: Soft, nondistended, normal bowel sounds, there is no tenderness on palpation diffusely Extremities: Warm, dry, no cyanosis, clubbing, or edema there is no tenderness on palpation of the shoulder or arm. Skin: No rashes Neuro: Alert and oriented x3, CN II - XII intact, nonfocal exam with normal strength, normal sensation, normal reflexes, normal gait, Psych: Normal mood and affect EKG shows normal sinus rhythm at a rate of [address]-T wave abnormalities otherwise normal EKG Patient's heart score is 5 so patient will require an admission to rule him out for cardiac causes. 05/23/19 23:19 Past History - Past Medical History Allergies/Adverse Reactions: Allergies Allergy/AdvReac Type Severity Reaction Status Date / Time No Known Drug Allergies Allergy Mild Verified 05/23/19 22:16 Home Medications: Ambulatory Orders Cholecalciferol (Vitamin D3) [Vitamin D] 1,000 unit PO BID 09/23/13 Lorazepam 1 mg PO TID 09/23/13 Niacin [Niaspan] 500 mg PO HS 09/23/13 Simvastatin [Zocor -] 20 mg PO HS 09/23/13 Apixaban [Eliquis -] 5 mg PO BID #60 tablet 02/02/18 Bupropion HCl [Wellbutrin -] 150 mg PO TID 09/30/18 Omeprazole 40 mg PO DAILY 09/30/18 Losartan Potassium [Cozaar] 100 mg PO DAILY 10/01/18 Metoprolol Succinate [Toprol XL -] 100 mg PO BID #60 tab.sr.24h 10/04/18 Fluticasone Propionate [Flovent Diskus] 50 mcg IH BID 02/12/19 Anemia: No Asthma: Yes Cancer: No Cardiac Disorders: Yes (A FIB) CVA: No COPD: Yes CHF: No DVT: No Dementia: No Diabetes: No GI Disorders: Yes (GERD, gastritis) Disorders: No HTN: Yes Hypercholesterolemia: Yes Liver Disease: No Psychiatric Problems: Yes (ANXIETY) Seizures: No Thyroid Disease: No - Surgical History Abdominal Surgery: No Appendectomy: No Cardiac Surgery: No Cholecystectomy: Yes Lung Surgery: No Neurologic Surgery: No Orthopedic Surgery: Yes (DEMETRICE SHOULDER ARTHROSCOPIES) - Immunization History Td Vaccination: Yes Immunization Up to Date: Yes - Suicide/Smoking/Psychosocial Hx Smoking Status: No Smoking History: Former smoker Have you smoked in the past 12 months: No Number of Cigarettes Smoked Daily: 0 If you are a former smoker, when did you quit?: 1990s Cigars Per Day: 0 Hx Alcohol Use: No Drug/Substance Use Hx: No Substance Use Type: Alcohol Hx Substance Use Treatment: No Heart Score/ECG Review - History History: Slightly suspicious - Electrocardiogram EKG: Non specific repolarization disturbance - Age Age: >/= 65 - Risk Factors Based on the list above the patient has:: >/=3 risk factors or Hx atherosclerotic disease - Troponin Troponin: </= normal limit - Score Heart Score - Total: 5 ED Treatment Course - LABORATORY CBC & Chemistry Diagram: 05/23/19 22:50 05/23/19 22:50 *DC/Admit/Observation/Transfer Diagnosis at time of Disposition: Chest pain radiating to arm - Discharge Dispostion Disposition: HOME Condition at time of disposition: Stable Decision to Admit order: Yes - Referrals Referrals: Matheus Jean Baptiste MD [Primary Care Provider] - - Patient Instructions - Post Discharge Activity
[2019-05-23 23:04] LABS: BASO % 0.8 % (0-2.0); EOS % 4.2 % (0-4.5); HEMATOCRIT 38.2 % (35.4-49); HEMOGLOBIN 12.5 GM/dl (11.7-16.9); LYMPH % 27.7 % (8-40); MCH 30.1 pg (25.7-33.7); MCHC 32.7 g/dl (32.0-35.9); MEAN PLT VOLUME 9.4 fl (7.5-11.1); MONO % 9.9 % (3.8-10.2); NEUT % 57.4 % (42.8-82.8); PLATELET COUNT 185 K/MM3 (134-434); RBC 4.15 M/mm3 (4.00-5.60); RDW 12.7 % (11.9-15.9); WHITE BLOOD COUNT 6.4 K/mm3 (4.0-10.8)
[2019-05-23 23:08] LABS: ALBUMIN 3.8 g/dl (3.4-5.0); BILIRUBIN,TOTAL 0.6 mg/dl (0.2-1); CALCIUM 9.1 mg/dl (8.5-10); CREATININE 1.3 mg/dl (0.55-1.3); POTASSIUM 4.1 mmol/L (3.5-5.1); TOT PROT 7.3 g/dl (6.4-8.2)
[2019-05-23 23:15] LABS: INR 1.68 (0.82-1.09); PROTHROMBIN TIME (PATIENT) 18.6 SEC (10.2-13.0)
[2019-05-24 01:13] VITALS: BMI 21.8
[2019-05-24] MEDS: buPROPion HCL 75 MG TABLET PO SCH ×2 (06:44→21:51)
[2019-05-24] MEDS: LORazepam 0.5 MG TABLET PO SCH ×3 (06:45→21:52)
--- NOTE | 2019-05-24 08:34 | HP ---
CHIEF COMPLAINT: Left-sided chest pain, LUE paresthesia, LLE weakness PCP: Dr. Jean Baptiste Cardiology: Dr. East HISTORY OF PRESENT ILLNESS: 73 year-old male with a PMH significant for HTN, HLD, paroxysmal atrial fibrillation on Eliquis, asthma/COPD, GERD, and anxiety. Patient presented to the ED for evaluation of left-sided chest pain, "pins and needles" in his left arm and hand, and LLE "heaviness." Patient was in his usual state of health working on his computer at 4pm yesterday when he experienced a pain in his upper left chest and a pins and needles sensation that extended from his left shoulder to his hand affecting all five fingers. He was alone at the time. When his and son returned at around 7pm he reported his symptoms. They did not notice anything unusual, his speech and gait were normal, there was no facial asymmetry or mental status changes. At around 8pm patient felt a heaviness in his left leg. At that point he came to the ED. At the time of this admission the symptoms of chest pain, paresthesia, and leg heaviness have resolved. Patient reports he has had episodes of pins and needles in his left arm for years, on average about once a month. He has never told his PCP about it or had a workup. He denies any specific history of neck pain, stating he has aches and pains all over. ER course was notable for: (1) BP 195/85 (2) Mg 1.6 Recent Travel: No PAST MEDICAL HISTORY: Hypertension Hyperlipidemia Atrial fibrillation Asthma/COPD GERD Anxiety PAST SURGICAL HISTORY: Cholecystectomy Bilateral shoulder arthroscopies Bilateral cataracts Social History: [facility], lives with and son Smoking: quit 25 years ago Alcohol: 2 glasses of wine with dinner Drugs: no Family History: Allergies No Known Drug Allergies Allergy (Mild, Verified 05/23/19 22:16) HOME MEDICATIONS: Home Medications Medication Instructions Recorded Cholecalciferol (Vitamin D3) 1,000 unit PO BID 09/23/13 [Vitamin D] Lorazepam 1 mg PO TID 09/23/13 Niacin [Niaspan] 500 mg PO HS 09/23/13 Simvastatin [Zocor -] 20 mg PO HS 09/23/13 Apixaban [Eliquis -] 5 mg PO BID #60 tablet 02/02/18 Bupropion HCl [Wellbutrin -] 150 mg PO TID 09/30/18 Omeprazole 40 mg PO DAILY 09/30/18 Losartan Potassium [Cozaar] 100 mg PO DAILY 10/01/18 Metoprolol Succinate [Toprol XL -] 100 mg PO BID #60 tab.sr.24h 10/04/18 Fluticasone Propionate [Flovent 50 mcg IH BID 02/12/19 Diskus] REVIEW OF SYSTEMS CONSTITUTIONAL: Absent: fever, chills, diaphoresis, generalized weakness, malaise, loss of appetite, weight change HEENT: Absent: rhinorrhea, nasal congestion, throat pain, throat swelling, difficulty swallowing, mouth swelling, ear pain, eye pain, visual changes CARDIOVASCULAR: Absent: chest pain, syncope, palpitations, irregular heart rate, lightheadedness , peripheral edema RESPIRATORY: Absent: cough, shortness of breath, dyspnea with exertion, orthopnea, wheezing, stridor, hemoptysis GASTROINTESTINAL: Absent: abdominal pain, abdominal distension, nausea, vomiting, diarrhea, constipation, melena, hematochezia GENITOURINARY: Absent: dysuria, frequency, urgency, hesitancy, hematuria, flank pain, genital pain MUSCULOSKELETAL: Absent: myalgia, arthralgia, joint swelling, back pain, neck pain SKIN: Absent: rash, itching, pallor HEMATOLOGIC/IMMUNOLOGIC: Absent: easy bleeding, easy bruising, lymphadenopathy, frequent infections ENDOCRINE: Absent: unexplained weight gain, unexplained weight loss, heat intolerance, cold intolerance NEUROLOGIC: +RUE paresthesia, RLE weakness Absent: headache, dizziness, unsteady gait, seizure, mental status changes, bladder or bowel incontinence PSYCHIATRIC: Absent: anxiety, depression, suicidal or homicidal ideation, hallucinations. PHYSICAL EXAMINATION Vital Signs - 24 hr 05/23/19 05/24/19 05/24/19 22:17 00:06 00:54 Temperature 97.5 F L 97.7 F Pulse Rate 68 75 Pulse Rate [ 94 H Left] Respiratory 16 16 18 Rate Blood Pressure 195/85 H 184/84 H Blood Pressure 180/85 H [Right] O2 Sat by Pulse 99 Oximetry (%) 05/24/19 05/24/19 01:17 04:00 Temperature 97.9 F Pulse Rate 72 Pulse Rate [ Left] Respiratory 18 Rate Blood Pressure 173/83 H Blood Pressure [Right] O2 Sat by Pulse 100 98 Oximetry (%) GENERAL: Awake, alert, and fully oriented, in no acute distress. HEAD: Normal with no signs of trauma. EYES: Pupils equal, round and reactive to light, extraocular movements intact, sclera anicteric, conjunctiva clear. No lid lag. EARS, NOSE, THROAT: Ears normal, nares patent, oropharynx clear without exudates. Moist mucous membranes. NECK: Normal range of motion, supple without lymphadenopathy, JVD, or masses. LUNGS: Breath sounds equal, clear to auscultation bilaterally. No wheezes, and no crackles. No accessory muscle use. HEART: Regular rate and rhythm, normal S1 and S2 ABDOMEN: Soft, nontender, not distended, normoactive bowel sounds, no guarding, no rebound UPPER EXTREMITIES: 2+ pulses, warm, well-perfused. No cyanosis. No clubbing. No peripheral edema. LOWER EXTREMITIES: 2+ pulses, warm, well-perfused. No calf tenderness. No peripheral edema. NEUROLOGICAL: Cranial nerves II-XII intact. Normal speech. Laboratory Results - last 24 hr 05/23/19 05/23/19 05/23/19 00:17 00:17 00:17 WBC 6.4 RBC 4.15 Hgb 12.5 Hct 38.2 D MCV 92.0 MCH 30.1 MCHC 32.7 RDW 12.7 Plt Count 185 MPV 9.4 Absolute Neuts (auto) 3.6 Neutrophils % 57.4 D Lymphocytes % 27.7 D Monocytes % 9.9 Eosinophils % 4.2 D Basophils % 0.8 D PT with INR 18.6 H INR 1.68 H Sodium 138 Potassium 4.1 Chloride 102 Carbon Dioxide 26 Anion Gap 10 BUN 27.0 H Creatinine 1.3 Est GFR (CKD-EPI)AfAm 61.86 Est GFR (CKD-EPI)NonAf 53.37 Random Glucose 101 Calcium 9.1 Total Bilirubin 0.6 AST 28 ALT 19 Alkaline Phosphatase 57 Creatine Kinase Troponin I Total Protein 7.3 Albumin 3.8 05/23/19 05/23/19 22:30 22:30 WBC RBC Hgb Hct MCV MCH MCHC RDW Plt Count MPV Absolute Neuts (auto) Neutrophils % Lymphocytes % Monocytes % Eosinophils % Basophils % PT with INR INR Sodium Potassium Chloride Carbon Dioxide Anion Gap BUN Creatinine Est GFR (CKD-EPI)AfAm Est GFR (CKD-EPI)NonAf Random Glucose Calcium Total Bilirubin AST ALT Alkaline Phosphatase Creatine Kinase 55 Troponin I < 0.03 Total Protein Albumin ASSESSMENT/PLAN: 73 year-old male with a PMH significant for HTN, HLD, paroxysmal atrial fibrillation on Eliquis, asthma/COPD, GERD, and anxiety. Admitted for r/o ACS, r /o TIA v. CVA. Left-sided chest pain r/o ACS --troponin neg x 3 --CXR unremarkable --ECG: sinus rhythm @67 bpm; no indication of acute ischemic event --most recent echo 01/2018: LV normal, RV normal, trace TR --repeat echo ordered --telemetry monitoring --cardiology consult r/o TIA v. CVA --CT scanner under repair at [facility], send to [facility] for CT head --US carotids --not on ASA, continue statin --neuro consult Paroxysmal atrial fibrillation --in sinus rhythm --continue Toprol XL for rate control --continue Eliquis Hypertensive urgency --BP 195/85 on admission --continue Toprol XL, losartan Hyperlipidemia --continue Lipitor, niacin Hypomagnesemia -repleted Asthma --continue Asmanex Anxiety --continue home dose lorazepam TID, Wellbutrin GERD --continue protonix FEN Fluids: PO intake adequate Electrolytes: replete as indicated; K>4, Mg>2 Nutrition: low sodium DVT prophylaxis: on Eliquis Physcial therapy Dispo: continues to require inpatient care. Full code. Visit type - Emergency Visit Emergency Visit: Yes ED Registration Date: 05/24/19 Care time: The patient presented to the Emergency Department on the above date and was hospitalized for further evaluation of their emergent condition. - New Patient This patient is new to me today: Yes Date on this admission: 05/24/19 - Critical Care Critical Care patient: No
[2019-05-24 09:09] LABS: BASO % 0.8 % (0-2.0); EOS % 6.1 % (0-4.5); HEMATOCRIT 32.7 % (35.4-49); MCHC 33.6 g/dl (32.0-35.9); MEAN CELL VOLUME 92.2 fl (80-96); MEAN PLT VOLUME 9.6 fl (7.5-11.1); MONO % 11.6 % (3.8-10.2); NEUT % 48.5 % (42.8-82.8); PLATELET COUNT 155 K/MM3 (134-434); RBC 3.55 M/mm3 (4.00-5.60); RDW 12.9 % (11.9-15.9); WHITE BLOOD COUNT 5.7 K/mm3 (4.0-10.8)
[2019-05-24 09:24] LABS: ALBUMIN 3.4 g/dl (3.4-5.0); ALK PHOS 52 U/L (45-117); ANION GAP 7 MMOL/L (8-16); BILIRUBIN,TOTAL 0.5 mg/dl (0.2-1); CALCIUM 8.7 mg/dl (8.5-10); CHLORIDE 104 mmol/L (98-107); CHOLESTEROL 172 mg/dl (50-200); CO2 29 mmol/L (21-32); CREATININE 1.2 mg/dl (0.55-1.3); GLUCOSE,RANDOM 94 mg/dl (74-106); HDL CHOLESTEROL 49 mg/dl (40-60); POTASSIUM 4.1 mmol/L (3.5-5.1); SGOT/AST 23 U/L (15-37); SGPT/ALT 16 U/L (13-61); SODIUM 140 mmol/L (136-145); TOT PROT 6.5 g/dl (6.4-8.2); TRIGLYCERIDES 340 mg/dl (0-150)
[2019-05-24] MEDS ORDERED: PT OWN MED DRAWER 7, Y5N ONE ×2 (09:31→21:54)
[2019-05-24] MEDS: LOSARTAN POTASSIUM 50 MG TABLET (FP) PO SCH (09:59)
[2019-05-24] MEDS: APIXABAN 5 MG TABLET PO SCH ×2 (09:59→21:52)
[2019-05-24] MEDS: PANTOPRAZOLE 40 MG TABLET (FP) PO SCH (10:00)
[2019-05-24] MEDS: CHOLECALCIFEROL (VIT D3) 1,000 UNIT (25 MCG) TABLET PO SCH ×2 (10:01→21:52)
--- NOTE | 2019-05-24 10:11 | EKG ---
Test Reason : Blood Pressure : / mmHG Vent. Rate : 067 BPM Atrial Rate : 067 BPM P-R Int : 148 ms QRS Dur : 092 ms QT Int : 416 ms P-R-T Axes : 019 -25 001 degrees QTc Int : 439 ms NORMAL SINUS RHYTHM MINIMAL VOLTAGE CRITERIA FOR LVH, MAY BE NORMAL VARIANT NONSPECIFIC ST ABNORMALITY ABNORMAL ECG WHEN COMPARED WITH ECG OF 04-OCT-2018 00:35, SINUS RHYTHM HAS REPLACED ATRIAL FLUTTER VENT. RATE HAS DECREASED BY 49 BPM T WAVE INVERSION NO LONGER EVIDENT IN ANTERIOR LEADS Confirmed by KATT DONOVAN MD ([id number]) on 05/24/2019 10:11:00 AM Referred By: MD BOWLES Confirmed By:KATT DONOVAN MD
[2019-05-24] MEDS ORDERED: MAGNESIUM SULF 50% (8.12 MEQ/2 ML-1 GM VIAL) IVPB ONE (13:07)
--- NOTE | 2019-05-24 15:09 | PN ---
Physical Exam: SUBJECTIVE: Patient seen and examined OBJECTIVE: Vital Signs Period Temp Pulse Resp BP Sys/Aguilar Pulse Ox Last 24 Hr 96 F-97.9 F 68-94 16-18 165-195/79-85 98-100 GENERAL: The patient is awake, alert, and fully oriented, in no acute distress. HEAD: Normal with no signs of trauma. EYES: PERRL, extraocular movements intact, sclera anicteric, conjunctiva clear. No ptosis. ENT: Ears normal, nares patent, oropharynx clear without exudates, moist mucous membranes. NECK: Trachea midline, full range of motion, supple. LUNGS: Breath sounds equal, clear to auscultation bilaterally, no wheezes, no crackles, no accessory muscle use. HEART: Regular rate and rhythm, S1, S2 without murmur, rub or gallop. ABDOMEN: Soft, nontender, nondistended, normoactive bowel sounds, no guarding, no rebound, no hepatosplenomegaly, no masses. EXTREMITIES: 2+ pulses, warm, well-perfused, no edema. NEUROLOGICAL: Cranial nerves II through XII grossly intact. Normal speech, gait not observed. PSYCH: Normal mood, normal affect. SKIN: Warm, dry, normal turgor, no rashes or lesions noted Laboratory Results - last 24 hr 05/23/19 05/23/19 05/23/19 00:17 00:17 00:17 WBC 6.4 RBC 4.15 Hgb 12.5 Hct 38.2 D MCV 92.0 MCH 30.1 MCHC 32.7 RDW 12.7 Plt Count 185 MPV 9.4 Absolute Neuts (auto) 3.6 Neutrophils % 57.4 D Lymphocytes % 27.7 D Monocytes % 9.9 Eosinophils % 4.2 D Basophils % 0.8 D PT with INR 18.6 H INR 1.68 H Sodium 138 Potassium 4.1 Chloride 102 Carbon Dioxide 26 Anion Gap 10 BUN 27.0 H Creatinine 1.3 Est GFR (CKD-EPI)AfAm 61.86 Est GFR (CKD-EPI)NonAf 53.37 Random Glucose 101 Calcium 9.1 Magnesium Total Bilirubin 0.6 AST 28 ALT 19 Alkaline Phosphatase 57 Creatine Kinase Troponin I Total Protein 7.3 Albumin 3.8 Triglycerides Cholesterol Total LDL Cholesterol HDL Cholesterol 05/23/19 05/23/19 05/24/19 22:30 22:30 07:00 WBC RBC Hgb Hct MCV MCH MCHC RDW Plt Count MPV Absolute Neuts (auto) Neutrophils % Lymphocytes % Monocytes % Eosinophils % Basophils % PT with INR INR Sodium 140 Potassium 4.1 Chloride 104 Carbon Dioxide 29 Anion Gap 7 L BUN 24.0 H Creatinine 1.2 Est GFR (CKD-EPI)AfAm 68.15 Est GFR (CKD-EPI)NonAf 58.80 Random Glucose 94 Calcium 8.7 Magnesium Total Bilirubin 0.5 AST 23 ALT 16 Alkaline Phosphatase 52 Creatine Kinase 55 Troponin I < 0.03 Total Protein 6.5 Albumin 3.4 Triglycerides 340 H Cholesterol 172 Total LDL Cholesterol TNP HDL Cholesterol 49 05/24/19 05/24/19 05/24/19 07:30 07:30 07:30 WBC 5.7 RBC 3.55 L Hgb 11.0 L Hct 32.7 L MCV 92.2 MCH 31.0 MCHC 33.6 RDW 12.9 Plt Count 155 MPV 9.6 Absolute Neuts (auto) 2.7 Neutrophils % 48.5 Lymphocytes % 33.0 Monocytes % 11.6 H Eosinophils % 6.1 H Basophils % 0.8 PT with INR INR Sodium Potassium Chloride Carbon Dioxide Anion Gap BUN Creatinine Est GFR (CKD-EPI)AfAm Est GFR (CKD-EPI)NonAf Random Glucose Calcium Magnesium 1.6 L Total Bilirubin AST ALT Alkaline Phosphatase Creatine Kinase Troponin I < 0.03 Total Protein Albumin Triglycerides Cholesterol Total LDL Cholesterol HDL Cholesterol 05/24/19 07:30 WBC RBC Hgb Hct MCV MCH MCHC RDW Plt Count MPV Absolute Neuts (auto) Neutrophils % Lymphocytes % Monocytes % Eosinophils % Basophils % PT with INR INR Sodium Potassium Chloride Carbon Dioxide Anion Gap BUN Creatinine Est GFR (CKD-EPI)AfAm Est GFR (CKD-EPI)NonAf Random Glucose Calcium Magnesium Total Bilirubin AST ALT Alkaline Phosphatase Creatine Kinase 50 Troponin I Total Protein Albumin Triglycerides Cholesterol Total LDL Cholesterol HDL Cholesterol Active Medications Generic Name Dose Route Start Last Admin Trade Name Freq PRN Reason Stop Dose Admin Apixaban 5 mg 05/24/19 10:00 05/24/19 09:59 Eliquis - PO 5 mg BID AVIVA Administration Atorvastatin Calcium 10 mg 05/24/19 22:00 Lipitor - PO HS [facility] Bupropion HCl 150 mg 05/24/19 06:00 05/24/19 06:44 Wellbutrin - PO 150 mg TID AVIVA Administration Cholecalciferol 1,000 unit 05/24/19 10:00 05/24/19 10:01 Vitamin D3 - PO 1,000 unit BID AVIVA Administration Lorazepam 1 mg 05/24/19 06:00 05/24/19 13:32 Ativan - PO 1 mg TID AVIVA Administration Losartan Potassium 100 mg 05/24/19 10:00 05/24/19 09:59 Cozaar - PO 100 mg DAILY AVIVA Administration Metoprolol Succinate 100 mg 05/24/19 10:00 05/24/19 10:00 Toprol Xl - PO 100 mg BID AVIVA Administration Mometasone Furoate 1 puff 05/24/19 22:00 Asmanex 220mcg - IH HS AVIVA Niacin 500 mg 05/24/19 22:00 Niacin PO HS AVIVA Pantoprazole Sodium 40 mg 05/24/19 10:00 05/24/19 10:00 Protonix - PO 40 mg DAILY AVIVA Administration ASSESSMENT/PLAN:
[2019-05-24] MEDS ORDERED: ASPIRIN COATED 81 MG TABLET.EC PO SCH (15:30)
[2019-05-24] MEDS: NIACIN 500 MG TABLET PO SCH ×2 (21:54→21:59)
[2019-05-24] MEDS ORDERED: MOMETASONE FUROATE 220 MCG/IH INHALER IH SCH (22:00)
[2019-05-24] MEDS ORDERED: ATORVASTATIN CA 10 MG TABLET (FP) PO SCH (22:00)
[2019-05-25] MEDS: buPROPion HCL 75 MG TABLET PO SCH ×2 (06:38→13:58)
[2019-05-25] MEDS: LORazepam 0.5 MG TABLET PO SCH ×2 (06:38→13:59)
[2019-05-25] MEDS: LOSARTAN POTASSIUM 50 MG TABLET (FP) PO SCH ×2 (07:00→09:35)
[2019-05-25] MEDS ORDERED: hydrALAZINE HCL 10 MG TABLET PO SCH (08:00)
--- NOTE | 2019-05-25 08:00 | CON.CARD ---
Consult Consult Specialty:: Cardiology Referred by:: Betzy Franco Reason for Consultation:: Left arm discomfort - History of Present Illness Chief Complaint: Left arm "pins and needles" History of Present Illness: 73M w/ PAF, HTN presents to ER with episode of left arm "pins and needles" sensation that started in his wrist and moved up to left shoulder. Lasted several hours. No assd weakness, visual changes or slurred speech. Denies CP, SOB, palpitations. No exertional CP or SOB. No syncope or CHF sx. Head CT negative. - History Source History Provided By: Patient - Past Medical History Cardio/Vascular: Yes: AFIB, HTN Pulmonary: No: Asthma, Bronchitis, Cancer, COPD, O2 Dependent, Pneumonia, Previously Intubated, Pulmonary Embolus, Pulmonary Fibrosis, Sleep Apnea, Other Gastrointestinal: No: Ascites, Cancer, Constipation, Crohn's Disease, Diverticulitis, Diverticulosis, Esophageal Varices, Gastritis, GERD, GI Bleed, Hemorrhoids, Hiatal Hernia, Inflamatory Bowel Disease, Irritable Bowel Disease, Pancreatitis, Peptic Ulcer Disease, Ulcerative Colitis, Other Hepatobiliary: No: Cirrhosis, Cholelithiasis, Cholecystitis, Choledocholithiasis , Hepatitis A, Hepatitis B, Hepatitis C, Other Renal/: No: Renal Failure, Renal Inusuff, BPH, Cancer, Hematuria, Hemodialysis , Neurogenic Bladder, Renal Calculi, UTI, Other Infectious Disease: No: AIDS, C-Diff, Herpes Zoster, HIV, MRSA, STD's, Tuberculosis, VREF, Other Psych: No: Addictions, Anxiety, Bipolar, Depression, Panic, Psychosis, Schizophrenia, Other Musculoskeletal: No: Bursitis, Chronic low back pain, Hemiparesis, Hemiplegia, Osteoarthritis, Paraplegia, Other Rheumatology: No: Fibromyalgia, Gout, Lupus, Rheumatoid Arthritis, Sarcoidosis, Vasculitis, Other ENT: No: Allergic Rhinitis, Sinusitis, Other Endocrine: No: Bee's Disease, Fayette's Disease, Diabetes Insipidus, Diabetes Mellitus, Hyperparathyroidism, Hyperthyroidism, Hypothyroidism, Osteopenia, SIADH, Other Dermatology: No: Basal Cell, Cellulitis, Eczema, Melanoma, Psoriasis, Squamous Cell, Other - Alcohol/Substance Use Hx Alcohol Use: No - Smoking History Smoking history: Former smoker Have you smoked in the past 12 months: No Aproximately how many cigarettes per day: 0 If you are a former smoker, when did you quit?: 1990s - Social History Usual Living Arrangement: With Spouse History of Recent Travel: No Home Medications - Allergies Allergies/Adverse Reactions: Allergies Allergy/AdvReac Type Severity Reaction Status Date / Time No Known Drug Allergies Allergy Mild Verified 05/23/19 22:16 - Home Medications Home Medications: Ambulatory Orders Cholecalciferol (Vitamin D3) [Vitamin D] 1,000 unit PO BID 09/23/13 Lorazepam 1 mg PO TID 09/23/13 Niacin [Niaspan] 500 mg PO HS 09/23/13 Simvastatin [Zocor -] 20 mg PO HS 09/23/13 Apixaban [Eliquis -] 5 mg PO BID #60 tablet 02/02/18 Bupropion HCl [Wellbutrin -] 150 mg PO TID 09/30/18 Omeprazole 40 mg PO DAILY 09/30/18 Losartan Potassium [Cozaar] 100 mg PO DAILY 10/01/18 Metoprolol Succinate [Toprol XL -] 100 mg PO BID #60 tab.sr.24h 10/04/18 Fluticasone Propionate [Flovent Diskus] 50 mcg IH BID 02/12/19 Review of Systems Findings/Remarks: see HPI - Review of Systems Constitutional: reports: No Symptoms Eyes: reports: No Symptoms Neck: reports: No Symptoms Cardiovascular: reports: No Symptoms Respiratory: reports: No Symptoms Gastrointestinal: reports: No Symptoms Genitourinary: reports: No Symptoms Neurological: reports: Parasthesia Endocrine: denies: No Symptoms, Excessive Sweating, Flushing, Increased Hunger, Increased Thirst, Intolerance to Cold, Intolerance to Heat, Unexplained Weight Gain, Unexplained Weight Loss, Other Hematology/Lymphatic: denies: No Symptoms, Easily Bruised, Excessive Bleeding, Swollen Glands, Other Psychiatric: denies: No Symptoms, Altered Sleep Pattern, Anxiety, Depression, Hallucinations, Panic, Paranoia, Suicidal, Other - Risk Factors Known Risk Factors: Yes: Hypercholesterolemia, Hypertension Vital Signs: Vital Signs Temperature 97.6 F 05/25/19 04:00 Pulse Rate 71 05/25/19 04:00 Respiratory Rate 18 05/25/19 04:00 Blood Pressure 185/79 H 05/25/19 06:55 O2 Sat by Pulse Oximetry (%) 99 05/25/19 04:00 Constitutional: Yes: No Distress Eyes: Yes: Conjunctiva Clear Respiratory: Yes: CTA Bilaterally Gastrointestinal: Yes: Soft Heart Sounds: Yes: S1, S2 (RRR, no M/R/G) Edema: No Peripheral Pulses WNL: Yes Neurological: Yes: Alert, Oriented - Other Data Labs, Other Data: INR, PTT INR 1.68 (0.82-1.09) H 05/23/19 00:17 Troponin, BNP 05/24/19 07:30 Troponin I < 0.03 Troponin, BNP 05/24/19 07:30 Troponin I < 0.03 NSR NSST changes. Echo: Pending Imaging - Results Chest X-ray: Report Reviewed EKG: Image Reviewed Assessment/Plan IMP: 1. Left arm parasthesia: possible cervical radiculopathy or other impingement vs TIA?-- unlikely anginal 2. Chronic HTN, uncontrolled 3. PAF 4. HLD REC: 1. Neuro evaluation 2. Optimize BP regimen- add HCTZ, titrate to goal 140/90 3. Echo and Carotid US ordered, pending. 4. Continue Eliquis. No further inpt cardiac diagnostic studies planned beyond above.
[2019-05-25 08:17] LABS: BASO % 0.8 % (0-2.0); EOS % 6.7 % (0-4.5); HEMATOCRIT 32.4 % (35.4-49); HEMOGLOBIN 10.9 GM/dl (11.7-16.9); LYMPH % 33.9 % (8-40); MCH 30.9 pg (25.7-33.7); MCHC 33.6 g/dl (32.0-35.9); MEAN CELL VOLUME 92.2 fl (80-96); MEAN PLT VOLUME 9.6 fl (7.5-11.1); MONO % 11.3 % (3.8-10.2); NEUT % 47.3 % (42.8-82.8); PLATELET COUNT 141 K/MM3 (134-434); RBC 3.52 M/mm3 (4.00-5.60); RDW 12.6 % (11.9-15.9); WHITE BLOOD COUNT 4.3 K/mm3 (4.0-10.8)
--- NOTE | 2019-05-25 08:43 | CON.NEURO ---
Consult Consult Specialty:: Ivana Referred by:: ER Reason for Consultation:: lleft arm paresthesia - History of Present Illness History of Present Illness: 73 years old man very pleasant man with present medical history significant for Coronary artery disease Bronchial asthma Cardiac arrhythmia Hypertension On anticoagulation Presented to the emergency room of the hospital with a chief complaint of difficulty with the left-sided chest pressure left arm numbness and left leg heaviness. Patient denies any recent travel patient is a retired cook patient denies any smoking for 25 years. The risk factor for cardiovascular risk were assessed. Patient denies any recent travel patient is compliant with his blood thinner. - History Source History Provided By: Patient Limitations to Obtaining History: No Limitations - Past Medical History Cardio/Vascular: Yes: AFIB, HTN Pulmonary: No: Asthma, Bronchitis, Cancer, COPD, O2 Dependent, Pneumonia, Previously Intubated, Pulmonary Embolus, Pulmonary Fibrosis, Sleep Apnea, Other Gastrointestinal: No: Ascites, Cancer, Constipation, Crohn's Disease, Diverticulitis, Diverticulosis, Esophageal Varices, Gastritis, GERD, GI Bleed, Hemorrhoids, Hiatal Hernia, Inflamatory Bowel Disease, Irritable Bowel Disease, Pancreatitis, Peptic Ulcer Disease, Ulcerative Colitis, Other Hepatobiliary: No: Cirrhosis, Cholelithiasis, Cholecystitis, Choledocholithiasis , Hepatitis A, Hepatitis B, Hepatitis C, Other Renal/: No: Renal Failure, Renal Inusuff, BPH, Cancer, Hematuria, Hemodialysis , Neurogenic Bladder, Renal Calculi, UTI, Other Infectious Disease: No: AIDS, C-Diff, Herpes Zoster, HIV, MRSA, STD's, Tuberculosis, VREF, Other Psych: No: Addictions, Anxiety, Bipolar, Depression, Panic, Psychosis, Schizophrenia, Other Musculoskeletal: No: Bursitis, Chronic low back pain, Hemiparesis, Hemiplegia, Osteoarthritis, Paraplegia, Other Rheumatology: No: Fibromyalgia, Gout, Lupus, Rheumatoid Arthritis, Sarcoidosis, Vasculitis, Other ENT: No: Allergic Rhinitis, Sinusitis, Other Endocrine: No: [place]'s Disease, [place]'s Disease, Diabetes Insipidus, Diabetes Mellitus, Hyperparathyroidism, Hyperthyroidism, Hypothyroidism, Osteopenia, SIADH, Other Dermatology: No: Basal Cell, Cellulitis, Eczema, Melanoma, Psoriasis, Squamous Cell, Other - Alcohol/Substance Use Hx Alcohol Use: No - Smoking History Smoking history: Former smoker Have you smoked in the past 12 months: No Aproximately how many cigarettes per day: 0 If you are a former smoker, when did you quit?: - Social History Usual Living Arrangement: With Spouse History of Recent Travel: No Home Medications - Allergies Allergies/Adverse Reactions: Allergies Allergy/AdvReac Type Severity Reaction Status Date / Time No Known Drug Allergies Allergy Mild Verified 05/23/19 22:16 - Home Medications Home Medications: Ambulatory Orders Cholecalciferol (Vitamin D3) [Vitamin D] 1,000 unit PO BID 09/23/13 Lorazepam 1 mg PO TID 09/23/13 Niacin [Niaspan] 500 mg PO HS 09/23/13 Simvastatin [Zocor -] 20 mg PO HS 09/23/13 Apixaban [Eliquis -] 5 mg PO BID #60 tablet 02/02/18 Bupropion HCl [Wellbutrin -] 150 mg PO TID 09/30/18 Omeprazole 40 mg PO DAILY 09/30/18 Losartan Potassium [Cozaar] 100 mg PO DAILY 10/01/18 Metoprolol Succinate [Toprol XL -] 100 mg PO BID #60 tab.sr.24h 10/04/18 Fluticasone Propionate [Flovent Diskus] 50 mcg IH BID 02/12/19 Family Disease History - Family Disease History Family History: Denies (stroke) Review of Systems - Review of Systems Constitutional: reports: No Symptoms Eyes: reports: No Symptoms Neurological: reports: Numbness, Parasthesia Physical Exam-Neuro Vital Signs: Vital Signs Temperature 97.6 F 05/25/19 04:00 Pulse Rate 71 05/25/19 04:00 Respiratory Rate 18 05/25/19 04:00 Blood Pressure 185/79 H 05/25/19 06:55 O2 Sat by Pulse Oximetry (%) 99 05/25/19 04:00 Constitutional: Yes: Well Nourished Neck: Yes: WNL Cardiovascular: Yes: WNL Labs: CBC, BMP 05/25/19 06:36 INR, PTT INR 1.68 (0.82-1.09) H 05/23/19 00:17 - Neuro Exam Level Of Consciousness: Yes: Oriented to Person, Oriented to Place, Oriented to Time Eyes: Yes: PERRLA Speech: WNL Dominant Hand: Right Gag: Present DTR's: 1+ Left Bicep, 1+ Right Bicep, 1+ Left Brachioradialis, 1+ Right Brachioradialis Response to light touch: Normal Response to pain prick: Normal Response to temperature: Normal Response to vibration: Normal Motor Strength: 3/5: Left Arm, Right Arm, Left Leg, Right Leg Gait: Deferred Imaging - Results Cat Scan: Image Reviewed Problem List - Problems (1) Paresthesia and pain of left extremity Assessment/Plan: gross neurological examination with no evidence of acute [employer] pathology Doubt this is a TIA Radiation of the numbness goes to C6 distribution Cervical radiculopathy to be ruled out 1. Neurologically patient is intact to go home if he is cleared by cardiology. 2. MRI cervical spine as an outpatient. 3. Trial of Neurontin 100 mg by mouth daily at bedtime. 4. Continue elliqus the same Many thanks for allowing me to be part of this patient neurological care Code(s): M79.609 - PAIN IN UNSPECIFIED LIMB; R20.2 - PARESTHESIA OF SKIN
[2019-05-25 09:19] LABS: ALBUMIN 3.2 g/dl (3.4-5.0); BILIRUBIN,TOTAL 0.7 mg/dl (0.2-1); CALCIUM 8.8 mg/dl (8.5-10); CREATININE 1.1 mg/dl (0.55-1.3); MAGNESIUM 1.6 mg/dL (1.8-2.4); POTASSIUM 3.9 mmol/L (3.5-5.1); TOT PROT 6.4 g/dl (6.4-8.2)
[2019-05-25] MEDS ORDERED: PT OWN MED DRAWER 7, Y5N ONE (09:27)
[2019-05-25] MEDS: APIXABAN 5 MG TABLET PO SCH (09:29)
[2019-05-25] MEDS: CHOLECALCIFEROL (VIT D3) 1,000 UNIT (25 MCG) TABLET PO SCH (09:29)
[2019-05-25] MEDS: PANTOPRAZOLE 40 MG TABLET (FP) PO SCH (09:29)
[2019-05-25] MEDS ORDERED: HYDROCHLOROTHIAZIDE 12.5 MG CAPSULE (FP) PO SCH (10:00)
[2019-05-25] MEDS ORDERED: MAGNESIUM SULF 50% (8.12 MEQ/2 ML-1 GM VIAL) IVPB ONE (13:23)
[2019-05-25] MEDS ORDERED: MAGNESIUM SULFATE IN WATER 2 GM/50 ML IVPB IVPB ONE (14:00)
--- NOTE | 2019-05-25 14:29 | ECHO ---
Name: AISHAMARTHA Exam:Adult Echocardiogram Study Date: 05/25/2019 01:33 PM Age: 73 yrs Reason For Study: Chest pain Height: 65 in Weight: 132 lb BSA: 1.7 m2 MMode/2D Measurements & Calculations IVSd: 0.96 cm Ao root diam: 3.3 cm LVIDd: 4.2 cm LA dimension: 3.2 cm LVIDs: 2.2 cm LVPWd: 0.96 cm EDV(Teich): 77.8 ml LVOT diam: 2.0 cm ESV(Teich): 15.8 ml Doppler Measurements & Calculations MV E max geovany: 73.2 cm/sec MV A max geovany: 77.4 cm/sec MV dec slope: 333.3 cm/sec2 MV E/A: 0.95 Ao V2 max: 124.3 cm/sec LV V1 max P.6 mmHg Ao max P.2 mmHg LV V1 max: 95.4 cm/sec NORMA(V,D): 2.4 cm2 TR max geovany: 219.0 cm/sec PA V2 max: 95.5 cm/sec TR max P.3 mmHg PA max P.6 mmHg Left Ventricle Left ventricular systolic function is normal. Ejection Fraction = 55-60%. The transmitral spectral Do ppler flow pattern is normal for age. Right Ventricle The right ventricle is normal in size and function. Atria Normal left and right atrial size and function. Mitral Valve The mitral valve is normal in structure and function. There is no mitral valve stenosis. There is tra ce to mild mitral regurgitation. Tricuspid Valve The tricuspid valve is normal in structure and function. There is mild tricuspid regurgitation. Right ventricular systolic pressure is normal. Aortic Valve The aortic valve opens well. No hemodynamically significant valvular aortic stenosis. No aortic regur gitation is present. Pulmonic Valve The pulmonic valve is not well seen, but is grossly normal. There is no pulmonic valvular stenosis. T here is no pulmonic valvular regurgitation. Great Vessels The aortic root is normal size. Pericardium/Pleura There is no pericardial effusion. Interpretation Summary Left ventricular systolic function is normal. Ejection Fraction = 55-60%. The right ventricle is normal in size and function. There is trace to mild mitral regurgitation. There is mild tricuspid regurgitation. Right ventricular systolic pressure is normal. The aortic root is normal size. There is no pericardial effusion. MD Manzo *Radha 05/25/2019 02:28 PM
[2019-05-25 14:56] VITALS: BP 165/76; PULSE 65; TEMP 98.6
--- NOTE | 2019-05-25 15:20 | DS ---
Physical Exam: SUBJECTIVE: Patient seen and examined OBJECTIVE: Vital Signs Period Temp Pulse Resp BP Sys/Aguilar Pulse Ox Last 24 Hr 97.6 F-98.6 F 65-71 18-18 165-186/68-79 95-99 PHYSICAL EXAM GENERAL: The patient is awake, alert, and fully oriented, in no acute distress. HEAD: Normal with no signs of trauma. EYES: PERRL, extraocular movements intact, sclera anicteric, conjunctiva clear. ENT: Ears normal, nares patent, oropharynx clear without exudates, moist mucous membranes. NECK: Trachea midline, full range of motion, supple. LUNGS: Breath sounds equal, clear to auscultation bilaterally, no wheezes, no crackles, no accessory muscle use. HEART: Regular rate and rhythm, S1, S2 without murmur, rub or gallop. ABDOMEN: Soft, nontender, nondistended, normoactive bowel sounds, no guarding, no rebound, no hepatosplenomegaly, no masses. EXTREMITIES: 2+ pulses, warm, well-perfused, no edema. NEUROLOGICAL: Cranial nerves II through XII grossly intact. Normal speech, gait not observed. PSYCH: Normal mood, normal affect. SKIN: Warm, dry, normal turgor, no rashes or lesions noted. LABS Laboratory Results - last 24 hr 05/25/19 05/25/19 05/25/19 06:36 06:36 06:36 WBC 4.3 RBC 3.52 L Hgb 10.9 L Hct 32.4 L MCV 92.2 MCH 30.9 MCHC 33.6 RDW 12.6 Plt Count 141 MPV 9.6 Absolute Neuts (auto) 2.0 Neutrophils % 47.3 Lymphocytes % 33.9 Monocytes % 11.3 H Eosinophils % 6.7 H Basophils % 0.8 Sodium 135 L Potassium 3.9 Chloride 101 Carbon Dioxide 27 Anion Gap 7 L BUN 15.0 Creatinine 1.1 Est GFR (CKD-EPI)AfAm 75.71 Est GFR (CKD-EPI)NonAf 65.32 Random Glucose 100 Calcium 8.8 Magnesium 1.6 L Total Bilirubin 0.7 AST 28 ALT 20 Alkaline Phosphatase 51 Creatine Kinase Troponin I < 0.03 Total Protein 6.4 Albumin 3.2 L 05/25/19 06:36 WBC RBC Hgb Hct MCV MCH MCHC RDW Plt Count MPV Absolute Neuts (auto) Neutrophils % Lymphocytes % Monocytes % Eosinophils % Basophils % Sodium Potassium Chloride Carbon Dioxide Anion Gap BUN Creatinine Est GFR (CKD-EPI)AfAm Est GFR (CKD-EPI)NonAf Random Glucose Calcium Magnesium Total Bilirubin AST ALT Alkaline Phosphatase Creatine Kinase 59 Troponin I Total Protein Albumin HOSPITAL COURSE: Date of Admission:05/24/19 Date of Discharge: 05/25/19 resume home lasix do not take HCTZ Discharge Summary Reason For Visit: CHEST PAIN Current Active Problems Chest pain radiating to arm (Acute) Paresthesia and pain of left extremity (Acute) Condition: Improved - Instructions Diet, Activity, Other Instructions: A prescription has been sent to your pharmacy for hydrochlorothiazide/HCTZ which is a diuretic. It is being prescribed as an additional medication to help control your high blood pressure. Take this medication as directed. It is very important you follow up with Dr. Jean Baptiste in one week to have your blood pressure checked. An appointment has been made for you to see Dr. Liam Dillard and/or Dr. Osvaldo Andrade. They are orthopedists who will evaluate your neck and right arm symptoms. You have an appointment on MAY 31 at 11:00am. Referrals: Matheus Jean Baptiste MD [Primary Care Provider] - 1 Week Liam Dillard DO [Staff Physician] - 05/31/19 11:00 am Disposition: HOME - Home Medications Comprehensive Discharge Medication List: Ambulatory Orders Cholecalciferol (Vitamin D3) [Vitamin D] 1,000 unit PO BID 09/23/13 Lorazepam 1 mg PO TID 09/23/13 Niacin [Niaspan] 500 mg PO HS 09/23/13 Simvastatin [Zocor -] 20 mg PO HS 09/23/13 Apixaban [Eliquis -] 5 mg PO BID #60 tablet 02/02/18 Bupropion HCl [Wellbutrin -] 150 mg PO TID 09/30/18 Omeprazole 40 mg PO DAILY 09/30/18 Losartan Potassium [Cozaar] 100 mg PO DAILY 10/01/18 Metoprolol Succinate [Toprol XL -] 100 mg PO BID #60 tab.sr.24h 10/04/18 Fluticasone Propionate [Flovent Diskus] 50 mcg IH BID 02/12/19
== END 2019-05-25 16:22 | disposition home or self-care (01) | DRG 74 ==
LOC: FER 22:00 → FM/S 23:20 → UNDOADMOB 05-24 00:18 → FM/S 05-24 00:18 → OBSVTOIN 05-24 06:54
PROVIDERS: ADMIT Internal Medicine; ATTEND Nurse Practitioner Acute Care
DX: M54.12 Radiculopathy, cervical region (principal); R07.89 Other chest pain; R20.2 Paresthesia of skin; I10 Essential (primary) hypertension; I25.10 Atherosclerotic heart disease of native coronary artery without angina pectoris; E78.5 Hyperlipidemia, unspecified; Z79.01 Long term (current) use of anticoagulants; J44.9 Chronic obstructive pulmonary disease, unspecified; K21.9 Gastro-esophageal reflux disease without esophagitis; F41.9 Anxiety disorder, unspecified; I16.0 Hypertensive urgency; E83.42 Hypomagnesemia; I48.0 Paroxysmal atrial fibrillation
CPT/HCPCS: 36415; 70450-TC; 71045-TC-FY; 80053; 80061; 82550; 83721; 83735; 84484; 85025; 85610; 93005; 93306-TC; 93880-TC; 99283-25; G0378